=== PATIENT | male | born 1970 | race Caucasian/White ===

== ENCOUNTER 2023-02-28 06:41 | Emergency (ER) | payer SELFPAY ==
[2023-02-28 06:43] VITALS: BP 122/61; PULSE 80; RESP 14; TEMP 36.5; O2SAT 100; BMI 24.4
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
--- NOTE | 2023-02-28 07:36 | XR_ITS ---
The [place] [id number] Patient Name: ROBYN PEGUERO MRN: [id number] date: 1970 Sex: M Assigned Patient Location: ER Current Patient Location: ED.MAIN Accession/Order Number: [id number] Exam Date: 02/28/2023 07:30 Report Date: 02/28/2023 08:05 At the request of: LYNN CANTU Procedure: XR ribs LT min 3V w CXR1V EXAM: XR ribs LT min 3V w CXR1V HISTORY: rib COMPARISON: None. TECHNIQUE: Single view of the chest, 3 views of the left ribs. FINDINGS: Cardiomediastinal silhouette is within normal limits. Calcified granuloma projects over the left base; lungs and pleural spaces are otherwise clear. No appreciable acute displaced left-sided rib fracture. XR/XR ribs LT min 3V w CXR1V IMPRESSION: No appreciable acute displaced left-sided rib fracture. Electronically authenticated by: ALEX ROY Date: 02/28/2023 08:05
[2023-02-28] MEDS: BENZOCAINE 30 ML, lidocaine HCL 15 ML MM (07:45)
[2023-02-28] MEDS: BACITRACIN OINTMENT 28.4 GM TUBE 1 APPLIC TOPICAL (07:45)
[2023-02-28 07:56] VITALS: BP 116/74; PULSE 87; RESP 18; O2SAT 98
== END 2023-02-28 08:44 | disposition home or self-care (01) ==
PROVIDERS: Emergency Provider Emergency Medicine; Family Provider Family Medicine
DX: S20.212A Contusion of left front wall of thorax, initial encounter (principal); S29.9XXA Unspecified injury of thorax, initial encounter; V43.52XA Car driver injured in collision with other type car in traffic accident, initial encounter; S01.511A Laceration without foreign body of lip, initial encounter; F17.210 Nicotine dependence, cigarettes, uncomplicated
CPT/HCPCS: 71101; 94667; 99283; 99406

== ENCOUNTER 2023-10-16 08:37 | Outpatient (OUT) | payer OTHER, SELFPAY ==
--- NOTE | 2023-10-16 | XR_ITS ---
The [address] [address] Patient Name: ROBYN PEGUERO MRN: [id number] date: 1970 Sex: M Assigned Patient Location: Current Patient Location: Accession/Order Number: [id number] Exam Date: 10/16/2023 08:40 Report Date: 10/16/2023 13:49 At the request of: LONDON GIBSON Procedure: XR shoulder LT min 2V PROCEDURE: XR shoulder LT min 2V COMPARISON: None. HISTORY: LEFT SHOULDER PAIN FINDINGS: BONES:No fracture, acute abnormality, or significant arthropathy. SOFT TISSUES:Negative. No visible soft tissue swelling. EFFUSION:None visible. OTHER: Negative. XR/XR shoulder LT min 2V IMPRESSION: No acute radiographic abnormality Electronically authenticated by: MIRELLA BANKS Date: 10/16/2023 13:49
== END 2023-10-16 08:38 | disposition home or self-care (01) ==
LOC: EC 08:38
PROVIDERS: Family Provider Family Medicine; Visit Provider Orthopaedic Surgery
DX: M25.512 Pain in left shoulder (principal)
CPT/HCPCS: 73030

== ENCOUNTER 2023-10-24 14:29 | Outpatient (OUT) | payer OTHER, SELFPAY ==
--- NOTE | 2023-10-24 14:32 | XR_ITS ---
The [address] [address] Patient Name: ROBYN PEGUERO MRN: [id number] date: 1970 Sex: M Assigned Patient Location: RAD Current Patient Location: RAD Accession/Order Number: [id number] Exam Date: 10/24/2023 14:36 Report Date: 10/24/2023 14:57 At the request of: LONDON GIBSON Procedure: XR foreign body eye EXAMINATION: XR foreign body eye HISTORY: Foreign Body Eye Screen COMPARISON: No relevant comparison available. FINDINGS: ORBITS: Negative for a metallic foreign body. OTHER: Negative. XR/XR foreign body eye IMPRESSION: 1. No metallic foreign body within the orbits. Electronically authenticated by: LONDON COSTA Date: 10/24/2023 14:57
--- NOTE | 2023-10-24 14:33 | MR_ITS ---
[address] [address] Patient Name: ROBYN PEGUERO MRN: [id number] date: 1970 Sex: M Assigned Patient Location: [facility] Current Patient Location: Accession/Order Number: [id number] Exam Date: 10/24/2023 15:00 Report Date: 10/25/2023 08:43 At the request of: LONDON GIBSON Procedure: MR shoulder LT wo con EXAMINATION: MR shoulder LT wo con HISTORY: Injury Of Left Shoulder S49.92XA COMPARISON: No relevant comparison available. TECHNIQUE: A variety of imaging planes and parameters were utilized for visualization of suspected pathology. Imaging was performed without contrast. FINDINGS: ROTATOR CUFF REGION CUFF TENDONS: Mildly increased signal intensity in the supraspinatus and subscapularis tendons indicates tendon degeneration and/or tendinitis. No christine tear is seen. CUFF MUSCLES: Normal appearing muscles. DELTOID: Normal. No significant atrophy or tear. LONG BICEPS TENDON: Normal. No abnormal signal, attrition, or tear. LABRUM/BICEPS ANCHOR SUPERIOR: Normal. No visible labral tear or biceps anchor pathology. ANTERIOR/INFERIOR: Normal. No visible tear or attrition. POSTERIOR: Normal. No posterior labrum abnormality. CAPSULE Normal. No visible capsular laxity or thickening. AC JOINT REGION AC JOINT: Moderate osteoarthropathy with mild-moderate narrowing of the underlying coracoacromial arch. AC LIGAMENTS: Normal acromioclavicular ligament. CC LIGAMENTS: Normal coracoclavicular ligaments. ACROMION: Normal horizontal (Type I) configuration. SUBACROMIAL BURSA: Normal. No significant effusion. HYALINE CARTILAGE: Normal. No visible cartilage narrowing or focal defect. OTHER BONES: Normal proximal humerus, glenoid, and coracoid. OTHER OBSERVATIONS: Negative. No other significant findings or glenohumeral effusion. MR/MR shoulder LT wo con IMPRESSION: Mild rotator cuff tendinopathy with no partial or full-thickness tear Moderate acromioclavicular joint osteoarthropathy with no significant subacromial spurring Electronically authenticated by: MIRELLA BANKS Date: 10/25/2023 08:43
== END 2023-10-24 14:30 | disposition home or self-care (01) ==
LOC: RAD 14:29
PROVIDERS: Family Provider Family Medicine; Visit Provider Orthopaedic Surgery
DX: S49.92XA Unspecified injury of left shoulder and upper arm, initial encounter (principal); T15.90XA Foreign body on external eye, part unspecified, unspecified eye, initial encounter
CPT/HCPCS: 70030; 73221

== ENCOUNTER 2024-07-13 17:29 | Emergency (ER) | payer OTHER, SELFPAY ==
[2024-07-13 17:34] VITALS: BP 111/71; PULSE 81; TEMP 37.4; O2SAT 93; BMI 28.1
--- NOTE | 2024-07-13 18:05 | ED_ITS ---
HPI HPI - General Adult General Chief complaint: Upper Respiratory Infection Stated complaint: FLU LIKE SYMPTOMS Time Seen by Provider: 07/13/24 17:37 Source: patient Mode of arrival: walk-in Limitations: no limitations History of Present Illness HPI narrative: The patient is a 53-year-old male who is living in the same household with his kids who have influenza , the patient is coming to the ER with his kids as well and apparently they all have the same symptoms, but he noted that he has been having some thrush in his mouth since yesterday as it is whitish but there is no pain He does take his COPD inhalers and he have no wheezing at the moment but he does have some increase in the cough He also have generalized body ache Related Data Previous Rx's ?Medication ?Instructions ?Recorded hydrocodone 5 mg-acetaminophen 325 1 tab PO Q4H PRN pain #10 tabs 02/28/23 mg tablet mupirocin 2 % topical ointment 1 applic topical TID 14 days #15 02/28/23 grams doxycycline hyclate 100 mg capsule 100 mg PO BID 7 days #14 caps 07/13/24 nystatin 100,000 unit/mL oral 400,000 unit (4 mL) buccal QID 7 07/13/24 suspension days #112 mL ondansetron 4 mg disintegrating 4 mg PO TID PRN nausea and 07/13/24 tablet vomiting 48 hours #10 tabs Allergies Allergy/AdvReac Type Severity Reaction Status Date / Time No Known Drug Allergies Allergy Verified 07/13/24 17:37 Opioid HPI Opioid Management Most Recent Opioid Data: No Data to Display Review of Systems ROS Status of ROS 10 or more systems reviewed and unremark able except as noted in history and below Exam Narrative Exam Narrative: Nurses notes and vital signs reviewed and patient is not hypoxic. General: Well-appearing and in no apparent distress. Skin: Warm, dry, no pallor noted. No rash. Head: Normocephalic, atraumatic. Neck: Supple, non-tender. Eye: Pupils are equal, round and EOMI. No scleral icterus. Ears, Nose, Mouth, and Throat: TM are clear, no nasal mucosal hypertrophy. The patient have a whitish thrush on the tongue and nothing in the oropharynx ,no posterior oropharynx erythema, uvula is mid-line Cardiovascular: Regular Rate and Rhythm without murmur, gallop or rub. Respiratory: No accessory muscle use or respiratory distress. Lungs are clear to auscultation, no wheezing, rales or rhonchi Chest Wall: no tenderness Back: No midline thoracic or lumbar vertebral tenderness. No CVA tenderness Musculoskeletal: normal ROM, no calf or popliteal tenderness, no lower extremity edema/swelling GI: Abdomen is soft, non-distended. Normal bowel sounds. No masses appreciated. No tenderness to palpation. No rebound, guarding, or rigidity noted. Neurological: A&O x4. No cranial nerve dysfunction observed. No truncal ataxia. Moves all extremities. Sensation intact. Psychiatric: Cooperative and interactive. Normal mood and affect. Constitutional Vital Signs, click to edit/add: Last Vital Signs Temp 99.3 F 07/13/24 17:34 Pulse 81 07/13/24 17:34 Resp 16 07/13/24 17:34 BP 111/71 07/13/24 17:34 Pulse Ox 93 L 07/13/24 17:34 O2 Del Method Room Air 07/13/24 17:34 Course Vital Signs Vital signs: Vital Signs Temperature 99.3 F 07/13/24 17:34 Pulse Rate 81 07/13/24 17:34 Respiratory Rate 16 07/13/24 17:34 Blood Pressure 111/71 07/13/24 17:34 Pulse Oximetry 93 L 07/13/24 17:34 Oxygen Delivery Method Room Air 07/13/24 17:34 Temperature 99.3 F 07/13/24 17:34 Pulse Rate 81 07/13/24 17:34 Respiratory Rate 16 07/13/24 17:34 Blood Pressure 111/71 07/13/24 17:34 Pulse Oximetry 93 L 07/13/24 17:34 Oxygen Delivery Method Room Air 07/13/24 17:34 Medical Decision Making [facility] Narrative Medical decision making narrative: The patient to mostly have influenza A as well with his history of increasing cough with his history of COPD the patient will be covered with doxycycline for COPD exacerbation Patient was provided with Zofran for the nausea and vomiting he discharged home with supportive care after he was tolerating p.o. Provided with nystatin mouthwash The patient also provided with the Zofran for nausea and he was instructed about hydration he is to come back to the ER in case of new symptoms or concerns The patient is to follow up with primary care physician in next 2-3 days or to return to the emergency department should any of the signs or symptoms worsen or new symptoms develop. The patient agrees with the following Diagnosis and Treatment plan and the patient will be discharged home. Discharge Plan Discharge Chief Complaint: Upper Respiratory Infection Clinical Impression: Oral thrush, Flu, COPD exacerbation Patient Disposition: Home, Self-Care Time of Disposition Decision: 18:00 Prescriptions / Home Meds: New nystatin 100,000 unit/mL suspension 400,000 unit buccal QID 7 Days Qty: 112 0RF Rx Instructions: administer 1/2 of dose in each side of the mouth ,swish with it QID ondansetron 4 mg tablet,disintegrating 4 mg PO TID PRN (Reason: nausea and vomiting) 2 Days Qty: 10 0RF doxycycline hyclate 100 mg capsule 100 mg PO BID 7 Days Qty: 14 0RF No Action hydrocodone-acetaminophen 5-325 mg tablet 1 tab PO Q4H PRN (Reason: pain) Qty: 10 0RF mupirocin 2 % ointment 1 applic topical TID 14 Days Qty: 15 0RF Print Language: Pashto Instructions: Oral Candidiasis (ED), Influenza (ED) Referrals: Physician,Non-Staff, MD [Primary Care Provider] - 1 week
[2024-07-13] MEDS: ONDANSETRON 4 MG RAPDIS TABLET SL (18:10)
--- OUTSIDE RECORDS SUMMARY | 2024-07-13 18:23 | XMS_ITS | CCD ---
Author Organization [facility] Care Team Providers Care Relay Dispatcher Name Role Phone Nancy Messina Unavailable TeenaLesia moya Unavailable Services, [facility] Primary Care Provider PAYAL JOHNSON Referring Unavailable SHERYL, ABERDEEN Primary Care Unavailable TALEB, MARK ANTHONY Attending Unavailable LES SAUCEDO Referring Unavailable SERVICES, [facility] Care Unava ilable VERITO PETERS Attending Unavailable SERVICES, [facility] Primary Care Unava ilable TALEB, MARK ANTHONY Attending Unavailable SERVICES, [facility] Care Unava ilable TALEB, MARK ANTHONY Attending Unavailable TALEB, MARLEED Referring Unavailable SERVICES, [facility] Care Unava ilable SHAMMO, NILA Referring Unavailable SERVICES, [facility] Care Unava ilable TALEB, MOHTERRYD Attending Unavailable TALEB, MOHAMMAD Referring Unavailable SERVICES, [facility] Care Unava ilable SHAMMO, NILA Referring Unavailable SERVICES, [facility] Care Unava ilable TALEB, MOHAMMAD Referring Unavailable SERVICES, [facility] Primary Care Unava ilable SHAMMO, NILA Referring Unavailable SERVICES, [facility] Primary Care Unava ilable SERVICES, [facility] Care Unava ilable BINTA BATEMAN Admitting Unavailable BINTA BATEMAN Attending Unavailable BINTA BATEMAN Referring Unavailable SERVICES, [facility] Primary Care Unava ilable BINTA BATEMAN Attending Unavailable BINTA BATEMAN Referring Unavailable SERVICES, [facility] Unava ilable LES SAUCEDO Referring Unavailable SERVICES, [facility] Unava ilable PAYAL JOHNSON Referring Unavailable SERVICES, [facility] Unava ilable PAYAL JOHNSON Referring Unavailable SERVICES, [facility] Unava ilable TALSUZY, MARK ANTHONY Attending Unavailable TALEB, MARK ANTHONY Referring Unavailable SERVICES, [facility] MADI Page Attending Unavailable SERVICES, [facility] Mateo Saucedo FENCE MACHINE OPERATOR - ATTENDING UROLOGIST, [place] Primary Care Provider Allergies Allergy Classification Reported Allergen(s) Allergy Type Date of Onset Reaction(s) Facility (1 source) Penicillins Propensity to adverse reactions to drug 01-10-2024 [facility] Medications Current Medications Medication Drug Class(es) Dates Sig (Normalized) Sig (Original) [id number] 200 actuat albuterol 0.09 mg/actuat metered dose inhaler (4 sources) beta2-Adrenergic Agonist Start: 10-09-2023 take 2 puff(s) by inhalation every six hours as needed for wheezing albuterol (PROVENTIL HFA;VENTOLIN HFA) 90 mcg/actuation inhaler Indications: Simple chronic bronchitis ([facility]) Inhale 2 puffs every 6 (six) hours as needed for wheezing. 18 g 11 10/09/2023 Active Start: 10-09-2023 take 2 puff(s) by inhalation every six hours as needed albuterol sulfate HFA (PROVENTIL;VENTOLIN;PROAIR) 108 (90 Base) MCG/ACT inhaler Inhale 2 puffs into the lungs every 6 hours as needed 0 10/09/2023 Active Brompheniramine / Pseudoephedrine (1 source) alpha-Adrenergic Agonist Start: 03-14-2021 take 5 mL by mouth every six hours as needed Bromfed DM 30-2-10 MG/5ML 5 ml as needed Orally every 6 hrs Mar, Active fluticasone propionate 0.05 mg/actuat metered dose nasal spray (1 source) Corticosteroid Start: 03-14-2021 take 1 spray(s) nasal route once daily Fluticasone Propionate 50 MCG/ACT 1 spray in each nostril Nasally Once a day for 30 day(s) Mar, Active ibuprofen 800 mg oral tablet (7 sources) Nonsteroidal Anti-inflammatory Drug Start: 06-15-2023 take 1 tablet by mouth every eight hours as needed for pain ibuprofen (MOTRIN) 800 mg tablet Take 1 tablet (800 mg total) by mouth every 8 (eight) hours as needed for pain. 30 tablet 06/15/2023 Active 200 actuat levalbuterol 0.045 mg/actuat metered dose inhaler (4 sources) beta2-Adrenergic Agonist Start: 11-02-2023 take 2 puff(s) by inhalation four times daily as needed for wheezing levalbuterol (XOPENEX HFA) 45 mcg/actuation inhaler Indications: Asthma, unspecified asthma severity, unspecified whether complicated, unspecified whether persistent Inhale 2 puffs 4 (four) times a day as needed for wheezing. 15 g 11 11/02/2023 Active Start: 11-02-2023 take 2 puff(s) by in halation four times daily as needed levalbuterol (XOPENEX HFA) 45 MCG/ACT inhaler Inhale 2 puffs into the lungs 4 times daily as needed 0 11/02/2023 Active medical marijuana (1 source) medical marijuan a Take by mouth as needed. 0 Active 24 hr nicotine 0.583 mg/hr transdermal system (4 sources) Cholinergic Nicotinic Agonist Start: apply 1 dose transdermal route once daily NICODERM CQ 14 mg/[address] 1 patch on the skin daily. 10/04/2023 Active Start: 10-04-2023 apply 1 dose transde rmal route every twenty-four hours nicotine (NICODERM CQ) 14 MG/24HR Place 1 patch onto the skin every 24 hours 0 10/04/2023 Active peg 3350-sod sulf,nmth-kwr-gko 178.7-7.3-0.5 gram recon soln (1 source) Start: 06-23-2023 End: 06-24-2023 peg 3350-sod sulf,lbtv-fdh-sze 178.7-7.3-0.5 gram recon soln Indications: Positive colorectal cancer screening using Cologuard test Take 1 kit by mouth once daily for 1 dose. Please see instructional sheet given by physicians office. 1 each 0 06/23/2023 06/24/2023 Active predniSONE 20 mg oral tablet (1 source) Start: 08-29-2022 take 1 tablet by mouth every twelve hours predniSONE 20 MG 1 tablet Orally 2 times a day for 5 day(s) Aug, Active 10 actuat tiotropium 0.0025 mg/actuat inhalation spray (4 sources) Anticholinergic Start: 10-09-2023 tiotropium bromide (SPIRIVA RESPIMAT) 2.5 mcg/actuation mist Indications: Simple chronic bronchitis (CMS-HCC) Inhale 2 Inhalations in the morning. 4 g 11 10/09/2023 Active Start: 10-09-2023 take 2 puff(s) by in halation once daily tiotropium (SPIRIVA RESPIMAT) 2.5 MCG/ACT AERS inhaler Inhale 2 puffs into the lungs daily 0 10/09/2023 Active Completed/Discontinued Medications Medication Drug Class(es) Dates Sig (Normalized) Sig (Original) cyclobenzaprine hydrochloride 10 mg oral tablet (2 sources) Muscle Relaxant Start: 02-16-2021 End: 07-18-2023 take 1 tablet by mouth twice daily as needed for muscle spasms cyclobenzaprine (FLEXERIL) 10 mg tablet Take 1 tablet (10 mg total) by mouth 2 (two) times a day as needed for muscle spasms. Do not take when driving or lifting heavy machinery. 10 tablet 0 02/16/2021 07/18/2023 Discontinued penicillin v potassium 25 mg/ml oral solution (2 sources) End: 07-18-2023 penicillin potassium 125 mg/5 mL solution Take by mouth 4 (four) times a day. 0 07/18/2023 Discontinued varenicline 0.5 mg oral tablet (2 sources) Partial Cholinergic Nicotinic Agonist Start: 06-06-2023 End: 07-18-2023 take 2 tablets by mouth in the morning varenicline (CHANTIX) 0.5 mg tablet Take 2 tablets (1 mg total) by mouth in the morning. 0 06/06/2023 07/18/2023 Discontinued Problems Active Problems Problem Classification Problem Date Documented Da te Episodic/Chronic Chronic obstructive pulmonary disease and bronchiectasis (2 sources) Chronic obstructive pulmonary disease, unspecified; Translations: [Simple chronic bronchitis] Onset: 10-09-2023 Chronic Noninfectious gastroenteritis (3 sources) Noninfective gastroenteritis and colitis, unspecified; Translations: [Postprandial diarrhea] Onset: 01-10-2024 01-10-2024 Episodic Other gastrointestinal disorders (1 source) Stool DNA-based colorectal cancer screening positive; Translations: [Other fecal abnormalities] 06-22-2023 Episodic Other gastrointestinal disorders (2 sources) Diarrhea; Translations: [Diarrhea, unspecified] 04-22-2024 Episodic Substance-related disorders (2 sources) Nicotine dependence, cigarettes, uncomplicated; Translations: [Nicotine dependence, cigarettes, uncomplicated] Onset: 10-09-2023 Chronic Unclassified (1 source) New Patient Onset: 10-09-2023 Unclassified (2 sources) POSITIVE COLOGUARD Onset: 06-23-2023 Past or Other Problems Problem Classification Problem Date Documented Da te Episodic/Chronic Gastritis and duodenitis (1 source) Acute gastritis without bleeding; Translations: [Acute gastritis without bleeding] Onset: 07-24-2023 Episodic Immunizations and screening for infectious disease (1 source) Contact with and (suspected) exposure to other viral communicable diseases; Translations: [Contact with and (suspected) exposure to other viral communicable diseases Z20.828] Onset: 03-14-2021 Resolved: 03-14-2021 Episodic Malaise and fatigue (1 source) Weakness; Translations: [Weakness] Onset: 08-16-2023 Episodic Other and unspecified benign neoplasm (1 source) Polyp of colon; Translations: [Polyp of colon] Onset: 07-24-2023 Episodic Other connective tissue disease (1 source) Other enthesopathies, not elsewhere classified; Translations: [Other enthesopathies, not elsewhere classified] Onset: 08-16-2023 Episodic Other gastrointestinal disorders (1 source) Other fecal abnormalities; Translations: [Other fecal abnormalities] Onset: 06-23-2023 Episodic Other gastrointestinal disorders (1 source) Diarrhea, unspecified; Translations: [Diarrhea, unspecified] Onset: 01-15-2024 Episodic Other lower respiratory disease (2 sources) Shortness of breath; Translations: [Shortness of breath] Onset: 08-11-2023 Episodic Other lower respiratory disease (1 source) Shortness of breath Onset: 10-09-2023 Episodic Other non-traumatic joint disorders (1 source) Pain in left shoulder; Translations: [Pain in left shoulder] Onset: 08-16-2023 Episodic Unclassified (1 source) Contact with and (suspected) exposure to covid-19 Z20.822 Viral infection (1 source) COVID-19 Results Test Name Value Interpretation Reference Range Facility CT LOW DOSE LUNG SCREENINGon 06-26-2024 CT LOW DOSE LUNG SCREENING CT LOW DOSE LUNG SCREENING CLINICAL INFORMATION: Screening visit: Personal history of tobacco use/personal history of nicotine dependence. Lung cancer screening. The patient is a current smoker. The patient has a 1 pack year history of smoking. COMPARISON: 06/06/2023 and 09/14/2022 TECHNIQUE: Low dose CT chest performed without contrast with coronal and sagittal and maximum intensity projection reconstructed images. Maximum intensity projection images generated to increase the sensitivity of pulmonary nodule detection. All CT scans at this facility use dose modulation, iterative reconstruction, and/or weight based dosing when appropriate to reduce radiation dose to as low as reasonably achievable. Automated exposure control was utilized. Computer aided detection for pulmonary nodules?was performed utilizing 5th Finger software.? FINDINGS: Diagnostic quality: Satisfactory Lung nodules: Stable 5 mm nodule in the right lower lobe (series 608 image 172). Calcified granulomas in the left lung and left hilum. Unchanged 4 mm right middle lobe nodule (series 608 image 169). Lungs and pleural spaces: Centrilobular emphysematous change. No pleural thickening or pleural effusion. Mediastinum: There is no mass or adenopathy. Ascending thoracic aortic diameter: 3.3 cm Main pulmonary artery diameter: 2.8 cm. Heart size: Normal Coronary calcification: None Pericardial effusion: None Other findings: Degenerative changes in the thoracic spine. IMPRESSION: Changes of COPD and evidence of prior granulomatous infection. No suspicious lung nodules. Lung Rads Category: 2- Benign appearance or behavior Recommendation: CT Low Dose Lung Screening 1 year Finalized by Bronson Durand MD on 06/26/2024 9:24 AM 2 LDCT 1 Yr Normal [facility] C DIFFICILE BY PCRon 024 C. difficile toxin genes ANDRZEJ+probe Ql (Stl) TOXIGENIC C DIFF Negative (qualifier value) 027 NAP1 Negative (qualifier value) Normal PRNEG [facility] Comment on above: Performed By: #### 5 4067-4 #### [facility] ([id number]) [address] [place] [address], [address] [place] [address] #### 78526-1 #### [facility] ([id number]) [address] [place] [address], [place] [address] [facility] ([id number]) [address] [place] [address], [address] [place] [address] Elastase.pancreatic (Stl) [M ass/Mass]on 04-08-2024 Pancreatic Elastase, F 123 mcg/g Low >200 (Normal) [facility] Comment on above: Result Comment: NOTE Interpretation: Borderline (100-200 mcg/g); Consistent with slight to moderate pancreatic insufficiency Test Performed by: [facility] [address] [place] [address] Ore Feeder: Erich Rick Ph.D.; CLIA# [id number] Performed By: #### 2 5907-7 #### [facility] ([id number]) [address] [place] [address], [place] [address] GI PANELon 04-08-2024 Gastrointestinal pathogens DNA and RNA panel ANDRZEJ+non-probe (Stl) SPECIMEN SOURCE STOOL CAMPYLOBACTER Not detected (qualifier value) PLESIOMONAS Not detected (qualifier value) SALMONELLA Not detected (qualifier value) VIBRIO Not detected (qualifier value) VIBRIO CHOLERAE Not detected (qualifier value) Y. ENTEROCOLITICA Not detected (qualifier value) AGGREGATIVE E COLI Not detected (qualifier value) PATHOGENIC E COLI Not detected (qualifier value) TOXIGENIC E COLI Not detected (qualifier value) SHIGA TOXIN E COLI Not detected (qualifier value) SHIGELLA-E COLI Not detected (qualifier value) CRYPTOSPORIDIUM Not detected (qualifier value) CYCLOSPORA Not detected (qualifier value) E HISTOLYTICA Not detected (qualifier value) GIARDIA LAMBLIA Not detected (qualifier value) ADENOVIRUS Not detected (qualifier value) ASTROVIRUS Not detected (qualifier value) NOROVIRUS Detected (qualifier value) Detects the following: Norovirus Genogroups I, II The bisque tile burner has reported an increase in false positive Norovirus results. If the positive test is inconsistent with clinical presentation, a secondary method should be used to confirm the results. ROTAVIRUS A Not detected (qualifier value) SAPOVIRUS Not detected (qualifier value) Normal NDET [facility] Comment on above: Performed By: #### 5 4067-4 #### [facility] ([id number]) [address] [facility], [address] [place] [address] #### 41022-8 #### [facility] ([id number]) [address] [place] [address], [place] [address] [facility] ([id number]) [address], [address] [place] [address] CBC AND AUTO DIFFon 01-15-20 24 ABSOLUTE BASOPHIL 0.0 X10E9/L Normal 0.0-0.2 [facility] Comment on above: Performed By: #### C BCA, CMP #### [facility] ([id number]) [address], [address] [place] [address] ABSOLUTE NEUTROPHIL 6.2 X10E9/L Normal 1.5-6.6 [facility] Comment on above: Performed By: #### C BCA, CMP #### [facility] ([id number]) [address], [address] [place] [address] Basophils/100 WBC (Bld) 0.6 % Normal [facility] Comment on above: Performed By: #### C BCA, CMP #### [facility] ([id number]) [address], [facility] [address] [place] [address] Eosinophils (Bld) [#/Vol] 0.2 10*3/uL Normal 0.0-0.4 [facility] Comment on above: Performed By: #### C BCA, CMP #### [facility] ([id number]) [address], [address] [address] Eosinophils/100 WBC (Bld) 2.6 % Normal [facility] Comment on above: Performed By: #### C BCA, CMP #### [facility] ([id number]) [address], [address] [place] [address] Erythrocyte distribution width (RBC) [Ratio] 13.7 % Normal 11.5-15.0 [facility] Comment on above: Performed By: #### C BCA, CMP #### [facility] ([id number]) [address], [address] [place] [address] Hematocrit (Bld) [Volume fraction] 44.0 % Normal 39-49 [facility] Comment on above: Performed By: #### C BCA, CMP #### [facility] ([id number]) [address] [address] [place] [address] Hemoglobin (Bld) [Mass/Vol] 15.0 g/dL Normal 13.0-17.0 [facility] Comment on above: Performed By: #### C MADHAVI, CMP #### [facility] ([id number]) [address] [address] [place] [address] Lymphocytes (Bld) [#/Vol] 1.4 10*3/uL Normal 1.0-3.5 [facility] Comment on above: Performed By: #### C MADHAVI, CMP #### [facility] ([id number]) [address], [address] [place] [address] Lymphocytes/100 WBC (Bld) 16.3 % Normal [facility] Comment on above: Performed By: #### C BCA, CMP #### [facility] ([id number]) [address], [address] [place] [address] MCH (RBC) [Entitic mass] 30.6 pg Normal 27-34 [facility] Comment on above: Performed By: #### C BCA, CMP #### [facility] ([id number]) [address] [address] [place] [address] MCHC (RBC) [Mass/Vol] 34.1 g/dL Normal 32-36 [facility] Comment on above: Performed By: #### C BCA, CMP #### [facility] ([id number]) [address], [address] [place] [address] MCV (RBC) [Entitic vol] 90 fL Normal 80-100 [facility] Comment on above: Performed By: #### C BCA, CMP #### [facility] ([id number]) [address], [address] [place] [address] Monocytes (Bld) [#/Vol] 0.8 10*3/uL Normal 0-0.9 [facility] Comment on above: Performed By: #### C BCA, CMP #### [facility] ([id number]) [address], [address] [place] [address] Monocytes/100 WBC (Bld) 8.9 % Normal [facility] Comment on above: Performed By: #### C BCA, CMP #### [facility] ([id number]) [address], [address] [place] [address] Neutrophils/100 WBC (Bld) 71.6 % Normal [facility] Comment on above: Performed By: #### C BCA, CMP #### [facility] ([id number]) [address], [address] [place] [address] Platelet mean volume (Bld) [Entitic vol] 9.5 fL Normal 7-12 [facility] Comment on above: Performed By: #### C BCA, CMP #### [facility] ([id number]) [address], [address] [place] [address] Platelets (Bld) [#/Vol] 226 10*3/uL Normal 150-450 [facility] Comment on above: Performed By: #### C BCA, CMP #### [facility] ([id number]) [address], [address] [place] [address] RBC COUNT 4.90 X10E12/L Normal 4.10-5.70 [facility] Comment on above: Performed By: #### C BCA, CMP #### [facility] ([id number]) [address], [address] [place] [address] WBC (Bld) [#/Vol] 8.6 10*3/uL Normal 4.0-11.0 [facility] Comment on above: Performed By: #### C BCA, CMP #### [facility] ([id number]) [address], [address] [place] [address] COMPREHENSIVE METABOLIC PANE Leandro 01-15-2024 Albumin [Mass/Vol] 4.1 g/dL Normal 3.2-5.3 [facility] Comment on above: Performed By: #### C BCA, CMP #### [facility] ([id number]) [address], [address] [place] [address] ALP [Catalytic activity/Vol] 72 U/L Normal 39-130 [facility] Comment on above: Performed By: #### C BCA, CMP #### [facility] ([id number]) [address], [address] [place] [address] ALT [Catalytic activity/Vol] 11 U/L Normal 0-40 [facility] Comment on above: Performed By: #### C BCA, CMP #### [facility] ([id number]) [address], [address] [place] [address] Anion gap [Moles/Vol] 7 mmol/L Normal 5-15 [facility] Comment on above: Performed By: #### C BCA, CMP #### [facility] ([id number]) [address], [address] [place] [address] AST [Catalytic activity/Vol] 17 U/L Normal 0-41 [facility] Comment on above: Performed By: #### C BCA, CMP #### [facility] ([id number]) [address], [address] [place] [address] Bilirubin [Mass/Vol] 0.4 mg/dL Normal 0.3-1.2 [facility] Comment on above: Performed By: #### C BCA, CMP #### [facility] ([id number]) [address], [address] [place] [address] Calcium [Mass/Vol] 9.2 mg/dL Normal 8.5-10.5 [facility] Comment on above: Performed By: #### C BCA, CMP #### [facility] ([id number]) [address], [address] [place] [address] Chloride [Moles/Vol] 105 mmol/L Normal 98-109 [facility] Comment on above: Performed By: #### C BCA, CMP #### [facility] ([id number]) [address], [address] [place] [address] CO2 [Moles/Vol] 27 mmol/L Normal 22-32 [facility] Comment on above: Performed By: #### C BCA, CMP #### [facility] ([id number]) [address], [address] [place] [address] Creatinine [Mass/Vol] 0.92 mg/dL Normal 0.60-1.30 [facility] Comment on above: Result Comment: METH OD TRACEABLE TO IDMS STANDARD Performed By: #### C BCA, CMP #### [facility] ([id number]) [address], [address] [place] [address] eGFR (CKD-EPI) NON-RACE DEPENDENT >90 Normal >59 [facility] Comment on above: Result Comment: Reported eGFR is based on the CKD-EPI 2020 equation that does not use a race coefficient. Performed By: #### C BCA, CMP #### [facility] ([id number]) [address], [address] [place] [address] Glucose [Mass/Vol] 87 mg/dL Normal 65-99 [facility] Comment on above: Performed By: #### C BCA, CMP #### [facility] ([id number]) [address], [address] [place] [address] Potassium [Moles/Vol] 4.1 mmol/L Normal 3.5-5.0 [facility] Comment on above: Performed By: #### C BCA, CMP #### [facility] ([id number]) [address], [address] [place] [address] Protein [Mass/Vol] 6.8 g/dL Normal 6.0-8.0 [facility] Comment on above: Performed By: #### C BCA, CMP #### [facility] ([id number]) [address], [address] [place] [address] Sodium [Moles/Vol] 139 mmol/L Normal 134-146 [facility] Comment on above: Performed By: #### C BCA, CMP #### [facility] ([id number]) [address], [address] [place] [address] Urea nitrogen [Mass/Vol] 10 mg/dL Normal 5-23 [facility] Comment on above: Performed By: #### C BCA, CMP #### [facility] ([id number]) [address], [address] [place] [address] Celiac Disease Panelon 01-11 Gliadin Deam Pep IgA 1.5 U/mL Normal <7.0 [facility] Comment on above: Result Comment: CELIAC INTERPRETATION <7.0 Negative 7.0-10.0 Equivocal >10.0 Positive units: U/mL Performed By: #### C ELP #### [facility] [address] [place], [place] [id number] Ore Feeder: Cody Garcia MD Gliadin Deam Pep IgG <0.4 Normal <7.0 [facility] Comment on above: Result Comment: CELIAC INTERPRETATION <7.0 Negative 7.0-10.0 Equivocal >10.0 Positive units: U/mL Performed By: #### C ELP #### [facility] [address], [place] [id number] Ore Feeder: Cody Garcia MD Tiss Transglutam IgA 0.4 U/mL Normal <7.0 [facility] Comment on above: Result Comment: CELIAC INTERPRETATION <7.0 Negative 7.0-10.0 Equivocal >10.0 Positive units: U/mL Performed By: #### C ELP #### [facility] [address], [place] [id number] Ore Feeder: Cody Garcia MD Celiac Disease Panelon 01-09 IgA [Mass/Vol] 212 mg/dL Normal 70-400 [facility] Comment on above: Performed By: #### C ELP #### [facility] [address], [place] [id number] Ore Feeder: Cody Garcia MD Alpha 1 antitrypsin Nephelom etry [Mass/Vol]on 10-09-2023 A1A Targeted Lia See Below Normal [facility] Comment on above: Result Comment: NOTE TEST RESULT FLAG UNIT REF.RANGE ------ Alpha-1 Antitrypsin Genotyping Interpretation See below Alpha-1 Antitrypsin Genotyping Laboratory Accession Number: [id number] Result: No Variant Detected in SERPINA1 (PI*MM) Interpretation: DNA testing indicates that this patient does not have the S, Z, F, or I alleles of SERPINA1, the alpha-1 antitrypsin gene. Guidance: Genetic consultation and counseling of at risk family members regarding this laboratory testing may be considered as clinically appropriate. Patients with no variants of SERPINA1 typically have serum alpha-1 antitrypsin levels between 102-254 mg/dL. If this patient has a serum alpha-1 antitrypsin level that is not consistent with this genotype and alpha-1 antitrypsin deficiency caused by a rare variant is clinically suspected, consider performing SERPINA1 gene sequencing. Methodology: Isolated genomic DNA from the patient's blood specimen is evaluated for four variants in the alpha-1 antitrypsin gene SERPINA1 (RefSeq [id number]; GRCh38/hg38) by multiplex polymerase chain reaction (PCR) followed by melting curve analysis. These included the two most common pathogenic variants: S (c.863A>T, p.Jhi017Bov, g.[id number]), Z (c.1096G>A, p.Eap350Hiu, g.[id number]), and the rarer variants: F (c.739C>T, p.Xrz197Trl, g.59159597), I (c.187C>T, p.Uqx34Hfl, g.06460693). Limitations: This Laboratory Developed Test (LDT) is designed to detect the S, Z, F and I alleles. The S and Z alleles comprise 95% of non-wild type genotypes. Uncommon variants or Single Nucleotide Polymorphisms may affect binding of LightMix or LightSNiP probes and may result in a false negative, false positive, or indeterminate result. Absence of the S, Z, F, and I alleles is interpreted as PI*MM genotype. However, there are over 100 known rare variants of SERPINA1 that are not detected by this LDT. Therefore, correlation of the genotype with the patient's serum alpha-1 antitrypsin level and clinical manifestations is strongly recommended. Frequency of S, Z, F and I Alleles in the general population: S: Heterozygous 2%; Homozygous 0.04% Z: Heterozygous 1%; Homozygous 0.01% F: Heterozygous 0.3%; Homozygous 0.001% I: Heterozygous 0.1%; Homozygous unknown Allele frequency information was gathered from the [employer] Agg[employer] Consortium (ExAC) and includes data from , , , and populations (supporting data in references). Disclaimer: This test was developed and its performance characteristics determined by [facility]ology [facility] Laboratory Medicine [place] ([facility]). It has not been cleared or approved by the FDA. -PLTN is regulated under CLIA as certified to perform high- complexity testing. This test is used for clinical purposes. It should not be regarded as investigational or for research. Testing and interpretation performed at [facility], [address] [place] [address]. CLIA Number: [id number] References: 1) Travon SHIELDS Tatianna G, Caroline ML, Jason M, Agustin CE, Liang K, Lisa DK, Ofelia SL, Darnell GARZA, [place] RAMIREZ, Fernanda C, Enrique J. The Diagnosis and Management of Alpha-1 Antritrypsin Deficiency in the Adult. Chronic Obstr Pulm Dis. 2016 Nov 08;3:668-682. 2) Samuel JA, Lianet ON, Nathalia ER, Zhen DG. a1-Antitrypsin phenotypes and associated serum protein concentrations in a large clinical population. Chest.2013 Sep;143(4):1000-8. 3) Jethro A, Dc NA, Devon CR, Kevin FJ, Sandeep SJ, Rosanne AF. Molecular characterisation of three braqp-6-nbjfvvrbpqw deficiency variants: proteinase inhibitor (Pi) nullcardiff (Vun299----Qaf); PiMmalton (Dbw96----vmovdsys) and PiI (Eyt31----Ppu). Hum Maureen. 1989 May;84(1):55-8. 4) Tam WALTON and Travon SHIELDS. Clinical practice. Alpha1-antitrypsin deficiency. N Engl J Med. 2008Nov 27;360(52)2888-94. 5) Candelario NJ, Mychal F, Inder SHIELDS. The significance of the F variant of yjrng-0-qbzrwjndjlo and unique case report of a PiFF homozygote. BMC Pulm Med. 2013Jan 09;14:132. 6) [place] RAMIREZ, Mike FRANKLIN, and Michael Cabezas. Alpha-1 Antitrypsin Deficiency. 2005Mar 31 [Updated 2017 June 23]. In: Emily RA, Colt MP, Taqueria TO, et al., editors. GeneReviews [Internet]. [place]): [employer], [place]; 8438-8466. Available from: http://www.ncbi.nlm.nih.gov/books/NRR8751/ As reviewed by Henry Morgan, PhD, [facility] Test Performed by: [employer] [place] [address] Coil Tester: Ilan SHAW #[id number] Performed By: #### 6 771-0 #### [facility] ([id number]) [address] [place] [address] #### 6771-0 #### [facility] ([id number]) [address] [place] [address] ALPHA 1 ANTITRYPSIN 165 mg/dL Normal 83-199 [facility] Comment on above: Performed By: #### 6 771-0 #### [facility] ([id number]) [address] [place] [address] #### 6771-0 #### [facility] ([id number]) [address] [place] [address] XR CHEST 2 VWSon 08-12-2023 XR CHEST 2 VWS XR CHEST 2 VWS Chest 2 views History: SOB (shortness of breath) Comparison: None Findings: Chest 2 views. Small left pleural effusion with left pleural thickening or scarring. Calcified left lung granuloma. Degenerative changes of the thoracic spine. Impression: No evident acute cardiopulmonary process. Finalized by Binta Herrera MD on 08/12/2023 9:20 AM Normal [facility] H PYLORI SCREENon 07-24-2023 H. pylori Org specific cx Ql (Shukri fld) Negative Normal NEG [facility] Comment on above: Performed By: #### 4 4015-6 #### [facility] ([id number]) [address] [place] [address] Surgical Pathologyon 024 Surgical Pathology Normal [facility] Comment on above: Result Comment: [facility] [address] [place] [address] Surgical Pathology Consultation Patient Name:ROBYN MCCULLOUGH:1970 (Age: 52)Gender:MTaken:4Reported:07/27/2023hysician(s):Binta Bateman D.O. ([phone])Copy To: Rec. #:[id number]: #[id number] Final Pathologic Diagnosis 1. Antrum biopsy: Mild chronic gastritis. Negative for helicobacter organisms on routine H&E examination. Negative for atypia or malignancy. 2. Sigmoid colon polyp: Hyperplastic polyp. 3. Rectal sigmoid junction x5: Hyperplastic polyps. Report Electronically Signed Out st07/27/2023Gayle Bruner MD Interpretation performed at [facility], [address] [place], [address], License number: [id number]. Clinical History Positive Cologuard. Gross Description 1. Received in formalin labeled MARIELENA, antrum BX are two light chapman soft tissue bits, 0.2 cm each. The specimen is filtered and entirely submitted in a single cassette. (1, ns, [id number],m8) DM. 2. Received in formalin labeled MARIELENA, sigmoid polyp is a light chapman soft tissue bit, 0.2 cm. The specimen is filtered and entirely submitted in a single cassette. (1, ns, [id number],m8) DM. 3. Received in formalin labeled MARIELENA, rectal sigmoid junction X5 are six light chapman soft tissue bits, 0.1-0.5 cm. The specimen is filtered and entirely submitted in a single cassette. (1, ns, [id number],m8) DM. dm/07/25/2023EAK Specimen(s) Received 1: Antrum biopsy 2: Sigmoid colon polyp 3: Rectal sigmoid junction x5 Fee Codes(s): 1; 42202 2; 24731 3; 36122 COVID Quick Testingon 2022 Result Positive Face++ Other COVID Quick Testingon 2020 Result Negative Face++ Other Vital Signs Date Time Vital Sign Value Performing Clinician Facility 07-18-2023 10:03-0500 Body height 175.3 cm Pmh 1 [facility] 07-18-2023 10:03-0500 Body mass index (BMI) [Ratio] 28.06 kg/m2 [facility] 07-18-2023 10:03-0500 Body weight 86.18 kg Pmh 1 [facility] [employer] [facility] 06-23-2023 12:54-0500 Body height 175.3 cm Verito Peters FENCE MACHINE OPERATOR-HYDROGRAPHY TEACHER [facility] 06-23-2023 12:54-0500 Body mass index (BMI) [Ratio] 27.35 kg/m2 Verito Peters FENCE MACHINE OPERATOR-HYDROGRAPHY TEACHER [facility] 06-23-2023 12:54-0500 Body weight 84.01 kg Verito Peters FENCE MACHINE OPERATOR-HYDROGRAPHY TEACHER [facility] 06-23-2023 12:54-0500 Diastolic blood pressure 63 mm[Hg] Verito Peters FENCE MACHINE OPERATOR-HYDROGRAPHY TEACHER [facility] 06-23-2023 12:54-0500 Systolic blood pressure 101 mm[Hg] Verito Peters FENCE MACHINE OPERATOR-HYDROGRAPHY TEACHER [facility] 08-29-2022 14:35-0400 Body height 175.26 cm Lesia Dickinson Other [facility] Other 08-29-2022 14:35-0400 Body mass index (BMI) [Ratio] 24.22 kg/m2 Lesia Dickinson Other [facility] Other 08-29-2022 14:35-0400 Body temperature 98.3 [degF] Lesia Dickinson Other [facility] Other 08-29-2022 14:35-0400 Body weight 74.39 kg Lesia Dickinson Other [facility] Other 08-29-2022 14:35-0400 Respiratory rate 18 /min Lesia Dickinson Other [facility] Other 08-29-2022 14:35-0400 SaO2% (BldA) [Mass fraction] 99 % Lesia Teena Other [facility] Other 03-14-2021 12:15-0400 Body height 175.26 cm Nancy Messina Other [facility] Other 03-14-2021 12:15-0400 Body mass index (BMI) [Ratio] 26.58 kg/m2 Nancy Messina Other [facility] Other 03-14-2021 12:15-0400 Body temperature 97.5 [degF] Nancy Messina Other [facility] Other 03-14-2021 12:15-0400 Body weight 81.65 kg Nancy Messina Other [facility] Other 03-14-2021 12:15-0400 SaO2% (BldA) [Mass fraction] 98 % Nancy Messina Other [facility] Other Encounters Encounter Date Encounter Type Care Provider Facility Start: 06-25-2024 End: 06-25-[address] [facility] Start: 05-20-2024 End: 05-20-2024 ambulatory [facility] Start: 05-06-2024 End: 05-06-2024 Telephone encounter Amada Kenyon Therese [facility] Pulmonary[facility]Sleep Medicine Start: 04-22-2024 End: 04-22-2024 Orders Only Les Saucedo FENCE MACHINE OPERATOR-PARK AIDE Work Phone: [facility] Comment on above: Diarrhea, unspecifie d Start: 04-09-2024 End: 04-09-2024 ambulatory PAYAL Justin ELIZABETH [facility] Start: 04-08-2024 End: 04-08-2024 ambulatory PAYAL Justin ELIZABETH [facility] Start: 01-15-2024 End: 01-15-2024 ambulatory LES SAUCEDO [facility] Start: 01-10-2024 End: 01-10-2024 ambulatory PAYAL JOHNSON [facility] Start: 01-10-2024 End: 01-10-2024 Subsequent hospital visit by physician Les Saucedo FENCE MACHINE OPERATOR - ATTENDING UROLOGIST Work Phone: [facility] Comment on above: Postprandial diarrhe a Start: 10-10-2023 End: 11-04-2023 ambulatory [facility] Start: 10-09-2023 End: 10-09-[address] [facility] Start: 10-09-2023 End: 10-09-2023 ambulatory [facility] Start: 09-04-2023 End: 10-04-2023 ambulatory [facility] Start: 08-28-2023 End: 08-28-[address] [facility] Start: 08-16-2023 End: 09-04-2023 ambulatory [facility] Start: 08-11-2023 Telephone [facility] Start: 08-11-2023 End: 08-11-[address] [facility] Start: 07-28-2023 Telephone encounter Ann Marie Rodriguez [facility] General Surgery Start: 07-25-2023 End: 07-25-2023 Evaluation and management of inpatient MADI Ariadna RAZO [facility] Start: 07-24-2023 End: 07-25-2023 Evaluation and management of inpatient BINTA BATEMAN [facility] Start: 07-18-2023 End: 07-18-2023 ambulatory [facility] Pat Phone Call Provider 1 [facility] - Pre Admit Start: 06-23-2023 End: 06-23-2023 Office outpatient new 30 minutes Verito Saleh Peters FENCE MACHINE OPERATOR-HYDROGRAPHY TEACHER Work Phone: [facility] General Surgery Comment on above: Positive colorectal cancer screening using Cologuard test (Primary Dx) Start: 06-23-2023 End: 06-23-2023 ambulatory VERITOISAAC PETERS [facility] Start: 08-29-2022 End: 08-29-2022 ambulatory Lesia Dickinson Other [facility] Other Start: 08-29-2022 Office outpatient vi sit 15 minutes Lesia Dickinson [facility] Start: 03-14-2021 Office outpatient vi sit 15 minutes Nancy Messina [facility] Procedures Date Procedure Procedure Detail Performing Clinician Start: 01-10-2024 Assay of gammaglobul in iga igd igg igm each Payal Johnson FENCE MACHINE OPERATOR - HYDROGRAPHY TEACHER Work Phone: Start: 07-24-2023 Colonoscopy Ann Marie carne CMA Plan of Treatment Date Care Activity Detail Author Start: 07-24-2033 Screening for malignant neoplasm of colon Colonoscopy [facility] Start: 07-21-2032 DTaP,Tdap and Td Vaccines (2 - Td or Tdap) DTaP,Tdap and Td Vaccines (2 - Td or Tdap) [facility] Start: 07-21-2032 DTaP/Tdap/Td vaccine (2 - Td or Tdap) DTaP/Tdap/Td vaccine (2 - Td or Tdap) [facility] Start: 05-28-2026 Screening for malignant neoplasm of colon [facility] Start: 10-08-2024 Adult BMI Screening Adult BMI Screening [facility] Start: 10-08-2024 Tobacco Screening Tobacco Screening [facility] Start: 07-24-2024 Adult BMI Screening Adult BMI Screening [facility] Start: 07-24-2024 Tobacco Screening Tobacco Screening [facility] Start: 07-18-2024 Adult BMI Screening Adult BMI Screening [facility] Start: 07-09-2024 Tobacco Screening Tobacco Screening [facility] Start: 06-23-2024 Adult BMI Screening Adult BMI Screening [facility] Start: 06-23-2024 Tobacco Screening Tobacco Screening [facility] Start: 05-20-2024 End: 05-20-2024 Patient encounter procedure 05/20/2024 10:45 AM EST Office Visit [facility] [address] [place] [phone] Mark Anthony Hansen MD [address] [place], [place] [id number] [facility] Start: 04-22-2024 End: 04-22-2025 CBC W Auto Differential panel - Blood CBC auto differential Lab Routine Diarrhea, unspecified Expected: 04/22/2024, Expires: 04/22/2025 [facility] Work Phone: Comment on above: Expected: 04/22/2024, Expires: Start: 04-22-2024 End: 04-22-2025 Comprehensive metabolic 2000 panel - Serum or Plasma Comprehensive metabolic panel Lab Routine Diarrhea, unspecified Expected: 04/22/2024, Expires: 04/22/2025 [facility] Work Phone: Comment on above: Expected: 04/22/2024, Expires: 5 Start: 02-21-2024 End: 02-21-2024 Patient encounter procedure 02/21/2024 11:00 AM EDT Office Visit [facility] [address] [place], [place] [id number] Payal Johnson, FENCE MACHINE OPERATOR - HYDROGRAPHY TEACHER [address] [place] [address] [facility] Comment on above: [facility] Start: 02-04-2024 Influenza vaccination Influenza Vaccine [facility] Start: 01-04-2024 Influenza vaccination Flu vaccine (#1) [facility] Start: 10-09-2023 End: 10-09-2023 Patient encounter procedure 10/09/2023 9:00 AM EDT Office Visit [facility] [address] [place] [phone] Mark Anthony Hansen MD [address] [place] [address] [facility] Start: 08-21-2023 End: 08-21-2023 Patient encounter procedure 08/21/2023 2:15 PM EDT Appointment [facility] MRI Imaging [address] [place] [phone] Abraham Hernandez DO [address] [place] [address] [facility] Start: 08-15-2023 End: 08-15-2023 Patient encounter procedure 08/15/2023 8:00 AM EDT Appointment [facility] - Pulmonary Function [address] [place] [phone] Mark Anthony Hansen MD [address], [address] [place] [address] [facility] Function Start: 07-24-2023 End: 07-24-2023 Admission to same day surgery center 07/24/2023 11:00 AM EST - 07/24/2023 11:45 AM EST Surgery [facility] Surgery [address] [place] [address] Binta Bateman, [address] [place], [place] [phone] ESOPHAGOGASTRODUODENOSCOPY DIAGNOSTIC [57164 (CPT )] [facility] Comment on above: ESOPHAGOGASTRODUODENOSCOPY DIAGNOSTIC [4 3235 (CPT )] Start: 07-24-2023 End: 07-24-2023 Anesthesia consultation 07/24/2023 11:00 AM EST Anesthesia Event [facility] Surgery [address] [place] [address] Madi Razo, DO [address] [place] [address] [facility] Start: 07-24-2023 End: 07-24-2023 Colonoscopy flx dx w/collj spec when pfrmd COLONOSCOPY DIAGNOSTIC / SCREENING positive cologuard 07/24/2023 11:00 AM EST [facility] Start: 07-24-2023 End: 07-24-2023 Esophagogastroduodenoscopy transoral diagnostic ESOPHAGOGASTRODUODENOSCOPY DIAGNOSTIC positive cologuard 07/24/2023 11:00 AM EST [facility] Start: 07-24-2023 Subsequent hospital visit by physician 07/24/2023 11:00 AM EST Hospital Encounter [facility] Surgery [address] [place] [address] [place] [address] [place] [id number] [facility] Start: 07-18-2023 End: 07-18-2023 ambulatory 07/18/2023 4:00 PM EST Support Visit [facility] - Pre Admit [address] [place] [address] [facility] Pre Admit Start: 02-03-2023 Influenza vaccination Influenza Vaccine [facility] [employer] [facility] Start: 2022 Administration of varicella zoster vaccine Zoster (Shingles) Vaccine (1 of 2) [facility] [employer] [facility] Start: 2022 Shingles vaccine (1 of 2) Shingles vaccine (1 of 2) [facility] Start: 2017 Screening for malignant neoplasm of colon [facility] Start: 2012 Lipid panel Lipids [facility] Start: 09-07-2007 Diabetes screen Diabetes screen [facility] Start: 1990 Adult BMI Follow Up Plan Adult BMI Follow Up Plan [facility] Start: 1990 Hepatitis C screening Hepatitis C screen [facility] Start: 09-07-1987 HIV screening HIV screen [facility] [facility] Start: 1984 Depression Screen Depression Screen [facility] Start: 1984 Depression Screening Depression Screening [facility] Start: 03-08-1973 COVID-19 Vaccine (#1) COVID-19 Vaccine (#1) [facility] [employer] Start: 1972 Hepatitis B vaccine (1 of 3 - 3-dose series) Hepatitis B vaccine (1 of 3 - 3-dose series) [facility] Start: 1972 Tobacco Counseling Tobacco Counseling [facility] Celiac Disease Panel Celiac Dise ase Panel Lab Routine Postprandial diarrhea 01/10/2024 3:35 PM EDT [facility] End: 06-23-2024 EGD / Colonoscopy EGD / Colonoscopy GI Routine Positive colorectal cancer screening using Cologuard test 1 Occurrences starting 06/23/2023 until 06/23/2024 [facility] Work Phone: Comment on above: 1 Occurrences starting 06/23/2023 until 06/23/2024 Immunizations Immunization Date Immunization Notes Care Provider Sandra preston 07-21-2022 tetanus toxoid, redu michael diphtheria toxoid, and acellular pertussis vaccine, adsorbed Verito Peters FENCE MACHINE OPERATOR-HYDROGRAPHY TEACHER Work Phone: [facility] Payers Date Payer Category Payer Medicaid HMO [facility] MEDICAID [id number] 2022 Private Health Insurance [facility] [id number] 2022-Present [phone] [address] [place] [address] [id number] 2022 Private Health Insurance [id number] 1970 Unknown [id number] 2.16840.1.988397.3.579. 2.174 1972 Unknown [id number] 2.16840.1.391785.3.579. 2.1286 1972 Unknown [id number] 2.16840.1.445079.3.579. 2.1285 1972 Unknown [id number] 2.16840.1.497086.3.579. 2.1286 1972 Unknown [id number] 2.16840.1.339343.3.579. 2.1285 1972 Unknown [id number] 2.16840.1.436791.3.579. 2.6 1972 Unknown [id number] 2.16840.1.061406.3.579. 2.128 1972 Unknown [id number] 2.16.840.1.126004.3.579. 2.1286 1972 Unknown [id number] 2.16840.1.546736.3.579. 2.1286 1972 Unknown [id number] 2.16840.1.792502.3.579. 2.1286 1972 Unknown [id number] 2.16840.1.909049.3.579. 2.1286 1972 Unknown [id number] 2.16840.1.436827.3.579. 2.1286 1972 Unknown [id number] 2.16.840.1.488009.3.579. 2.1286 1972 Unknown [id number] 2.16.840.1.004484.3.579. 2.1286 1972 Unknown [id number] 2.16.840.1.119548.3.579. 2.6 1972 Unknown [id number] 2.16.840.1.688646.3.579. 2.1286 1972 Unknown [id number] 2.16.840.1.172480.3.579. 2.1286 1972 Unknown [id number] 2.16.840.1.890567.3.579. 2.6 1972 Unknown [id number] 2.16.840.1.623721.3.579. 2.1285 1972 Unknown [id number] 2.16.840.1.354124.3.579. 2.1286 Unknown [id number] 2.16.840.1.353064.19 Social History Date Type Detail Facility Start: 07-16-2020 End: 06-23-2023 Sex Assigned At [facility] Start: 06-05-1988 End: 10-09-2023 Tobacco smoking status NHIS Smokes tobacco daily [facility] Start: 06-05-1988 History of tobacco use Cigarette Smo ker [facility] Start: 07-16-2020 End: 06-23-2023 Cigarettes smoked current (pack per day) - Reported 0.2 [facility] Start: 06-23-2023 End: 07-18-2023 Tobacco use and exposure Smokeless tobacco non-user [facility] Start: 06-23-2023 End: 10-09-2023 Alcohol intake Ex-drinker (finding) [facility] Housing Instability Unknown [facility] Start: 06-23-2023 Alcohol Comment RARELY [facility] Start: 1970 Sex Assigned At Male P [facility] Start: 06-03-2023 Gender identity Identifies as male gender (finding) [facility] Start: 06-03-2023 Sexual orientation Heterosexual (carola dailey) [facility] Start: 10-09-2023 Tobacco use and exposure User of smokeless tobacco [facility] History of tobacco use Chews Tobacco [facility] Start: 01-08-2015 Sex Male (finding) [facility] Tobacco smoking stat NHIS Tobacco smoking consumption unknown [facility] Start: 1970 Sex Assigned At Not on file B [facility] Clinical Notes 03-14-2021 to 05-06-2024 Telephone Encounter - SETH Lin - 05/06/2024 9:00 AM ESTTelephone Encounter - Mark Anthony Hansen MD - 05/06/2024 9:00 AM ESTTelephone Encounter - SETH Lin - 05/06/2024 9:00 AM EST Note Date & Type Note Facility 05-06-2024 Miscellaneous Notes Patient sent Bio message requesting an appointment stating: Breathing is worse, coughing and can not do the inhaler without coughing. Fieldwork Coordinator called patient and patient stated that his current symptoms are: Cough - with yellow phlegm Wheezing - in the morning SOB - in the morning Fevers, body aches, chills and sick contacts: his girlfriend was sick recently, stated that she only had a sore throat Nebulizer: none Inhaler(s): Spiriva (2 puffs QAM), levalbuterol (patient states that he doesn't use as it does not help) Allergies: NKA Pharmacy: [facility] [address] [place] [address] Patient last seen 10/12/2023 for: Shortness of breath Patient does have an appointment with his PCP today, patient is also scheduled for a follow up with MT on 06/24/2024. Recommend to keep the appointment with the PCP today and follow PCP recommendations. He can follow up with us on 05/20 at 10:45 a.m.. Fieldwork Coordinator called patient and informed him to keep his appointment with his PCP, video game script writer also informed patient that per MT, he would like patient to come in on 05/20/2024 at 10:45am. Patient confirmed that he can come in on 05/20/2024 at 10:45am. documented in this encounter [facility] 05-06-2024 Telephone encounter Note Patient sent Bio message requesting an appointment stating: Breathing is worse, coughing and can not do the inhaler without coughing. Fieldwork Coordinator called patient and patient stated that his current symptoms are: Cough - with yellow phlegm Wheezing - in the morning SOB - in the morning Fevers, body aches, chills and sick contacts: his girlfriend was sick recently, stated that she only had a sore throat Nebulizer: none Inhaler(s): Spiriva (2 puffs QAM), levalbuterol (patient states that he doesn't use as it does not help) Allergies: NKA Pharmacy: [facility] [address] [place] [address] Patient last seen 10/12/2023 for: Shortness of breath Patient does have an appointment with his PCP today, patient is also scheduled for a follow up with MT on 06/24/2024. [facility] 05-06-2024 Telephone encounter Note Recommend to keep the appointment with the PCP today and follow PCP recommendations. He can follow up with us on 05/20 at 10:45 a.m.. [facility] 05-06-2024 Telephone encounter Note Fieldwork Coordinator called patient and informed him to keep his appointment with his PCP, video game script writer also informed patient that per MT, he would like patient to come in on 05/20/2024 at 10:45am. Patient confirmed that he can come in on 05/20/2024 at 10:45am. [facility] 08-11-2023 Miscellaneous Notes Complete PFT and chest x ray placed per protocol. documented in this encounter [facility] 08-11-2023 Telephone encounter Note Complete PFT and chest x ray placed per protocol. [facility] 07-28-2023 Miscellaneous Notes ----- Message from Binta Bateman DO sent at 07/28/2023 8:21 AM EST ----- Please let patient know that he has gastritis most likely from taking ibuprofen. He may want to stop the ibuprofen but may continue if not having epigastric pain and take the omeprazole. I would like him to take omeprazole OTC for 6 weeks only. He had hyperplastic polyps therefore he doesn't need another screening scope for 10 instead of 5 years. ThanksDr. Jaimes Spoke with patient regarding pathology results. Patient verbally understood with no further questions. Informed patient of Dr. Bateman's recommendations and recall will be put into chart. documented in this encounter [facility] 07-28-2023 Telephone encounter Note ----- Message from Binta Bateman DO sent at 07/28/2023 8:21 AM EST ----- Please let patient know that he has gastritis most likely from taking ibuprofen. He may want to stop the ibuprofen but may continue if not having epigastric pain and take the omeprazole. I would like him to take omeprazole OTC for 6 weeks only. He had hyperplastic polyps therefore he doesn't need another screening scope for 10 instead of 5 years. Thanks, Dr. Jaimes [facility] 07-28-2023 Telephone encounter Note Spoke with patient regarding pathology results. Patient verbally understood with no further questions. Informed patient of Dr. Bateman's recommendations and recall will be put into chart. [facility] 07-18-2023 Nurse Note Preoperative Education Checklist- General Surgery date: 07/24/23 Surgery time: 11a Arrival time: 9a 1. Bring a photo ID and your insurance card with you the day of surgery. You will check in at the main lobby of the [facility]- registration desk is straight ahead as soon as you walk in. Tell them you are here for surgery. 2. If you have a Living Will/Durable Power of In Process Inspector for Health Care that is not on file here, please bring a copy the day of surgery. 3. Please shower/bathe the night before surgery with the provided soap or wipes. Do not shower the morning of surgery- you will do use wipes when you arrive here at the hospital before getting into your surgical gown. Do not shave the area of your procedure for 2 days prior to your surgery. 4. NO powder, lotion, perfume/cologne, aftershave, make-up, deodorant, or hair products after you have bathed. 5. NO nail armenian/acrylic on at least one finger. If you are having a hand, wrist or foot surgery then all nail armenian and artificial/acrylic nails must be removed from that hand or foot. 6. Avoid ALL Aspirin and non-steroidal anti-inflammatory drugs and certain vitamins (Ibuprofen, Advil, Aleve, Excedrin, Meloxicam, Celebrex, fish/krill oil, etc.) for 7 days prior to surgery as instructed by your surgeon and/or your prescribing doctor. Tylenol IS ALLOWED. If you are on Ticlid, Xarelto, Eliquis, Pradaxa, Plavix or Coumadin, please check with your prescribing doctor for instructions for when to stop them. 7. If you use an inhaler, continue to use it routinely. 8. Nothing to eat or drink (not even water, gum, mints, or hard candy!) AFTER midnight prior to your surgery. 9. Take only medications that you are instructed to on the morning of surgery with a TINY SIP OF WATER. 10. Choose a responsible adult that will be able to drive you home when you are discharged from your hospital stay for your surgery and can stay with you in your home for 24 hours after your procedure. You must NOT drive any vehicle or operate any machinery for 24 hours after surgery. 11. When you dress for your appointment, please wear loose fitting clothing that is appropriate to accommodate your surgical area procedure. BRING WITH YOU ANY DEVICES YOU MAY NEED: AUGUST hose, ice machine, sling/swath, brace or special shoe, oversized zip-up or button up shirt, CPAP machine if staying overnight. 12. Do NOT wear jewelry, watches, or any piercings or metal for surgery- leave these valuables and money at home. 13. Do NOT wear contact lenses for surgery- glasses are okay if needed. 14. The anesthesiologist will talk with you the day of surgery and will ask you to sign a Consent Form. 15. Refrain from smoking or any type of tobacco use for at least 8 hours and marijuana for 24 hours prior to arrival for your surgery. 16. If a GREEN BLOOD band is given to you, please bring it with you for the day of surgery. 17. Notify your surgeon if you develop any illness before your surgery. 18. If you are staying overnight, please DO NOT BRING your home medications with you. 19. If you have any questions prior to surgery, please call the Preadmission Testing office at [phone], Mon.-Fri. 7 a.m.-3 p.m. Leave a voicemail if needed. Pre-Surgery Instructions: Medication Instructions ibuprofen (MOTRIN) 800 mg tablet Stop taking 1 week prior to procedure [facility] [employer] [facility] 07-18-2023 Miscellaneous Notes Preoperative Education Checklist- General Surgery date: 07/24/23 Surgery time: 11a Arrival time: 9a 1. Bring a photo ID and your insurance card with you the day of surgery. You will check in at the main lobby of the [facility]- registration desk is straight ahead as soon as you walk in. Tell them you are here for surgery. 2. If you have a Living Will/Durable Power of In Process Inspector for Health Care that is not on file here, please bring a copy the day of surgery. 3. Please shower/bathe the night before surgery with the provided soap or wipes. Do not shower the morning of surgery- you will do use wipes when you arrive here at the hospital before getting into your surgical gown. Do not shave the area of your procedure for 2 days prior to your surgery. 4. NO powder, lotion, perfume/cologne, aftershave, make-up, deodorant, or hair products after you have bathed. 5. NO nail armenian/acrylic on at least one finger. If you are having a hand, wrist or foot surgery then all nail armenian and artificial/acrylic nails must be removed from that hand or foot. 6. Avoid ALL Aspirin and non-steroidal anti-inflammatory drugs and certain vitamins (Ibuprofen, Advil, Aleve, Excedrin, Meloxicam, Celebrex, fish/krill oil, etc.) for 7 days prior to surgery as instructed by your surgeon and/or your prescribing doctor. Tylenol IS ALLOWED. If you are on Ticlid, Xarelto, Eliquis, Pradaxa, Plavix or Coumadin, please check with your prescribing doctor for instructions for when to stop them. 7. If you use an inhaler, continue to use it routinely. 8. Nothing to eat or drink (not even water, gum, mints, or hard candy!) AFTER midnight prior to your surgery. 9. Take only medications that you are instructed to on the morning of surgery with a TINY SIP OF WATER. 10. Choose a responsible adult that will be able to drive you home when you are discharged from your hospital stay for your surgery and can stay with you in your home for 24 hours after your procedure. You must NOT drive any vehicle or operate any machinery for 24 hours after surgery. 11. When you dress for your appointment, please wear loose fitting clothing that is appropriate to accommodate your surgical area procedure. BRING WITH YOU ANY DEVICES YOU MAY NEED: AUGUST hose, ice machine, sling/swath, brace or special shoe, oversized zip-up or button up shirt, CPAP machine if staying overnight. 12. Do NOT wear jewelry, watches, or any piercings or metal for surgery- leave these valuables and money at home. 13. Do NOT wear contact lenses for surgery- glasses are okay if needed. 14. The anesthesiologist will talk with you the day of surgery and will ask you to sign a Consent Form. 15. Refrain from smoking or any type of tobacco use for at least 8 hours and marijuana for 24 hours prior to arrival for your surgery. 16. If a GREEN BLOOD band is given to you, please bring it with you for the day of surgery. 17. Notify your surgeon if you develop any illness before your surgery. 18. If you are staying overnight, please DO NOT BRING your home medications with you. 19. If you have any questions prior to surgery, please call the Preadmission Testing office at [phone], Mon.-Fri. 7 a.m.-3 p.m. Leave a voicemail if needed. Pre-Surgery Instructions: Medication Instructions ibuprofen (MOTRIN) 800 mg tablet Stop taking 1 week prior to procedure documented in this encounter [facility] [employer] [facility] 06-23-2023 History of Presen t illness Narrative Images from the original note were not included. Chief Complaint: Positive Cologuard History of Present Illness Robyn Mccullough is a 52 y.o. male who presents to the office for positive Cologuard. He denies any changes in his bowels including diarrhea, constipation, abdominal pain, melena, hematochezia, unexplained weight loss. He states he has regular bowel movements. He has never had a colonoscopy. There is no family history of colon cancer. Review of Systems Constitutional: Negative for fever and unexpected weight change. HENT: Negative for trouble swallowing. Respiratory: Negative for shortness of breath. Cardiovascular: Negative for chest pain and palpitations. Gastrointestinal: Negative for nausea, vomiting, abdominal pain, diarrhea, constipation, blood in stool and black tarry stool. Genitourinary: Negative for dysuria and difficulty urinating. Musculoskeletal: Negative for joint swelling and gait problem. Skin: Negative for rash and wound. Allergic/Immunologic: Negative for immunocompromised state. Neurological: Negative for dizziness, weakness and light-headedness. Hematological: Does not bruise/bleed easily. Psychiatric/Behavioral: Negative for behavioral problems and confusion. History reviewed. No pertinent past medical history. History reviewed. No pertinent surgical history. No Known Allergies Current Outpatient Medications: cyclobenzaprine (FLEXERIL) 10 mg tablet, Take 1 tablet (10 mg total) by mouth 2 (two) times a day as needed for muscle spasms. Do not take when driving or lifting heavy machinery., Disp: 10 tablet, Rfl: 0 ibuprofen (MOTRIN) 800 mg tablet, Take 1 tablet (800 mg total) by mouth every 8 (eight) hours as needed for pain., Disp: 30 tablet, Rfl: 0 penicillin potassium 125 mg/5 mL solution, Take by mouth 4 (four) times a day., Disp: , Rfl: varenicline (CHANTIX) 0.5 mg tablet, Take 2 tablets (1 mg total) by mouth in the morning., Disp: , Rfl: peg 3350-sod sulf,btlw-pdc-dgr 178.7-7.3-0.5 gram recon soln, Take 1 kit by mouth once daily for 1 dose. Please see instructional sheet given by physicians office., Disp: 1 each, Rfl: 0 Social History Socioeconomic History Marital status: Spouse name: Not on file Number of children: Not on file Years of education: Not on file Highest education level: Not on file Occupational History Not on file Tobacco Use Smoking status: Every Day Packs/day: 0.20 Years: 30.00 Additional pack years: 0.00 Total pack years: 6.00 Types: Cigarettes Smokeless tobacco: Never Vaping Use Vaping Use: Every day Substances: Nicotine, THC Substance and Sexual Activity Alcohol use: Not Currently Comment: RARELY Drug use: Yes Types: Medical Marijuana Sexual activity: Not on file Other Topics Concern Not on file Social History Narrative Not on file Social Determinants of Health Financial Resource Strain: Not on file Food Insecurity: No Food Insecurity (06/14/2023) Hunger Screening Food Insecurity - Worry: Never True Food Insecurity - Inability: Never True Transportation Needs: Not on file Physical Activity: Not on file Stress: Not on file Social Connections: Not on file Interpersonal Safety: Not on file Family History Problem Relation Age of Onset COPD Mother Heart disease Father Liver disease Father Heart failure Father Breast cancer Maternal Aunt Breast cancer Maternal Grandmother Objective Physical Exam Constitutional: Appearance: Normal appearance. HENT: Head: Normocephalic and atraumatic. Mouth/Throat: Mouth: Mucous membranes are moist. Eyes: Pupils: Pupils are equal, round, and reactive to light. Cardiovascular: Rate and Rhythm: Normal rate and regular rhythm. Pulmonary: Effort: Pulmonary effort is normal. No respiratory distress. Abdominal: General: There is no distension. Palpations: Abdomen is soft. Musculoskeletal: General: Normal range of motion. Cervical back: Normal range of motion. Skin: General: Skin is warm and dry. Neurological: Mental Status: He is alert and oriented to person, place, and time. Mental status is at baseline. Vital Signs: Blood pressure 101/63, height 175.3 cm (5' 9 ), weight 84 kg (185 lb 3.2 oz). Respiratory Source: No data recorded Admission Weight: Weight: 84 kg (185 lb 3.2 oz) Labs Lab Results Component Value Date WBC 7.1 09/14/2022 HGB 14.3 09/14/2022 HCT 42.8 09/14/2022 MCV 90 09/14/2022 PLT 272 09/14/2022 Lab Results Component Value Date GLU 128 (H) 09/14/2022 CALCIUM 9.3 09/14/2022 K 4.1 09/14/2022 CO2 27 09/14/2022 CL 103 09/14/2022 BUN 16 09/14/2022 CREATININE 1.02 09/14/2022 No results found for: AMYLASE Lab Results Component Value Date LIPASE 36 09/14/2022 Lab Results Component Value Date ALT 27 09/14/2022 AST 26 09/14/2022 ALKPHOS 64 09/14/2022 Lab Results Component Value Date INR 1.1 09/14/2022 PROTIME 12.9 09/14/2022 Assessment Robyn Mccullough is a 52 y.o.male with positive Cologuard. Plan EGD and colonoscopy with possible biopsy and/or polypectomy. Risks, benefits, and alternatives discussed with patient. Educated on bowel evacuation preparation. Patient verbalizes understanding and wishes to proceed. Evaluation included: Preparing to see the patient (e.g., review of tests) Obtaining and/or reviewing separately obtained history Performing a medically appropriate examination and/or evaluation Counseling and educating the patient/family/caregiver Referring and communicating with other health school child care attendant Positive colorectal cancer screening using Cologuard test [R19.5] MARIO MURPHY [facility] General Surgery [place] This note was created with the assistance of a speech recognition program. While intending to generate a timely document that accurately reflects the content of the visit, no guarantee can be provided that every grammatical or spelling mistake has been or will be identified or corrected. Thank you for your understanding. MARIO Murphy 06/23/23 1329 documented in this encounter [facility] 08-29-2022 Evaluation note Encounter Date Diagnosis Assessment Notes Aug, COVID-19 (ICD-10 - U07.1) Discharge Instructions for COVID-19 (Suspected or Confirmed ) material was printed Drink plenty fluids, get plenty of rest. Take Tylenol or Motrin as needed for aches pains or fevers. You must quarantine for 5 days after the onset of your symptoms of COVID. Follow-up with your family physician if no improvement in 2 to 3 days. Go to the ER for worsening symptoms or concerns Aug, Contact with and (suspected) exposure to covid-19 (ICD-10 - Z20.822) [employer] Other 10-10-2021 Evaluation note* Encounter Date Diagnosis Assessment Notes Treatment Notes Treatment Clinical Notes Mar, Contact with and (suspected) exposure to other viral communicable diseases (ICD-10 - Z20.828) Today test was performed in office. Results are currently negative. That does not mean that you will not develop COVID or do not currently have a low viral count of COVID. The rapid test works best if symptoms have been over 72 hours and the results can vary if you are asymptomatic There is a higher chance of false negative results to occur if testing is performed too soon. It is recommended that even if results are negative and you have been exposed to someone that has COVID that you follow current CDC recommendations. These can be found at CDC.GOV. Follow up with primary care provider if symptoms persist or do not improve Mar, Other Additional time spent conducting pre-visit phone call, screening for symptoms, instructions on social distancing, application and removal of PPE, and cleaning of examination room, equipment and supplies was preformed. Patient education given for testing methodology and results. Patient care instructions given in writting by [facility] document. [facility] Other Evaluation note* Diagnosis Positive colorectal cancer screening using Cologuard test- Primary documented in this encounter [facility]* Diagnosis Diarrhea, unspecified documented in this encounter [facility]* Diagnosis Postprandial diarrhea Diarrhea documented [facility] this encounter [facility] SystemInstructionsNot on filedocumented in this encounter [facility] SystemInstructionsNot on filedocumented in this encounter [facility] SystemInstructionsNot on filedocumented in this encounter [facility] SystemInstructionsNot on filedocumented in this encounter [facility] Summary Purpose Family History No Family History Records FoundNo Family History Records FoundNo Family History Records Found Advance Directives No Advanced Directives Records FoundNo Advanced Directives Records FoundNo Advanced Directives Records Found Additional Source Comments REASON FOR VISIT (unrecogniz ed section and content) Reason Comments POSITIVE COLOGUARD REFERRED BY NILA JOLLEY Care Teams (unrecognized sec tion and content) Relay Dispatcher Relationship Specialty Start Date End Date Services, [facility] [address] PCP - General Family Medicine 08/28/22 Relay Dispatcher Relationship Specialty Start Date End Date Services, [facility] [address], [place] PCP - General Family Medicine 08/28/22 Relay Dispatcher Relationship Specialty Start Date End Date Services, [facility] [address] PCP - General Family Medicine 08/28/22 Relay Dispatcher Relationship Specialty Start Date End Date [facility] [address] PCP - General Family Medicine 08/28/22 Relay Dispatcher Relationship Specialty Start Date End Date Services, [facility] [address] [place] PCP - General Family Medicine 08/28/22 Relay Dispatcher Relationship Specialty Start Date End Date [facility] [address] [place] PCP - General [facility] 08/28/22 Relay Dispatcher Relationship Specialty Start Date End Date Les Saucedo APRN - JU[facility] [address] [place] [address] PCP - General Nurse Practitioner 01/04/24 (unrecognized sect ion and content) No Status Records FoundNo Status Records FoundNo Status Records Found INFORMATION SOURCE (unrecogn ized section and content) DATE CREATED AUTHOR 01/13/2024 [facility] DATE CREATED AUTHOR AUTHOR'S ORGANIZ ATION 05/22/2024 [facility] DATE CREATED AUTHOR AUTHOR'S ORGANIZ ATION 06/26/2024 [facility] FOR RECORDS PERTAINING TO PATIENTS WHO ARE OR HAVE BEEN ENROLLED IN A CHEMICAL DEPENDENCY/SUBSTANCEABUSE PROGRAM, SOME INFORMATION MAY BE OMITTED. This clinical summary was aggregated from multiple sources. Caution should be exercised in using it in the provision of clinical care. This summary normalizes information from multiple sources, and as a consequence, information in this document may materially change the coding, format and clinical context of patient data. In addition, data may be omitted in some cases. CLINICAL DECISIONS SHOULD BE BASED ON THE PRIMARY CLINICAL RECORDS. [employer] [facility]. provides no warranty or guarantee of the accuracy or completeness of information in this document.
== END 2024-07-13 18:53 | disposition home or self-care (01) ==
LOC: ER 18:21
PROVIDERS: Emergency Provider Emergency Medicine; Family Provider Family Medicine
DX: J11.1 Influenza due to unidentified influenza virus with other respiratory manifestations (principal); J44.1 Chronic obstructive pulmonary disease with (acute) exacerbation; B37.0 Candidal stomatitis; R11.2 Nausea with vomiting, unspecified
CPT/HCPCS: 99283; Q0162

== ENCOUNTER 2024-07-14 15:15 | Emergency (ER) | payer OTHER, SELFPAY ==
[2024-07-14] VITALS (16 sets, daily range): BP systolic 112–123; BP diastolic 57–63; PULSE 98; TEMP 37.4–38.7; O2SAT 95–99; BMI 28.1
--- OUTSIDE RECORDS SUMMARY | 2024-07-14 15:28 | XMS_ITS | CCD ---
Author Organization [facility] Care Team Providers Care Foam Molder Name Role Phone Nancy Messina Unavailable TeenaLesia moya Unavailable Services, [facility] Primary Care Provider PAYAL JOHNSON Referring Unavailable SHERYL, [place] Primary Care Unavailable TALEB, MARK ANTHONY Attending Unavailable LES SAUCEDO Referring Unavailable SERVICES, [facility] Care Unava ilable VERITO PETERS Attending Unavailable SERVICES, [facility] Primary Care Unava ilable TALEB, MARK ANTHONY Attending Unavailable SERVICES, [facility] Care Unava ilable TALEB, MARK ANTHONY Attending Unavailable TALEB, MARLEED Referring Unavailable SERVICES, [facility] Care Unava ilable SHAMMO, NILA Referring Unavailable SERVICES, [facility] Care Unava ilable TALEB, MOHTERRYD Attending Unavailable TALEB, MOHAMMAD Referring Unavailable SERVICES, [facility] Care Unava ilable SHAMMO, NILA Referring Unavailable SERVICES, [facility] Care Unava ilable TALEB, MOHAMMAD Referring Unavailable SERVICES, [facility] Primary Care Unava ilable SHAMMO, NILA Referring Unavailable SERVICES, [facility] Primary Care Unava ilable SERVICES, [facility] Care Unava ilable BINTA BATEMAN Admitting Unavailable BINTA BATEMAN Attending Unavailable BINTA BATEMAN Referring Unavailable SERVICES, [facility] Primary Care Unava ilable BINTA BATEMAN Attending Unavailable BINTA BATEMAN Referring Unavailable SERVICES, [facility] Unava ilable LES SAUCEDO Referring Unavailable SERVICES, [facility] Unava ilable PAYAL JOHNSON Referring Unavailable SERVICES, [facility] Unava ilable PAYAL JOHNSON Referring Unavailable SERVICES, [facility] Unava ilable TALSUZY, MARK ANTHONY Attending Unavailable TALEB, MARK ANTHONY Referring Unavailable SERVICES, [facility] MADI Page Attending Unavailable SERVICES, [facility] Mateo Saucedo NEWS CLERK - WEEKEND RECEPTIONIST, [place] Primary Care Provider Allergies Allergy Classification Reported Allergen(s) Allergy Type Date of Onset Reaction(s) Facility (1 source) Penicillins Propensity to adverse reactions to drug 01-10-2024 [facility] Medications Current Medications Medication Drug Class(es) Dates Sig (Normalized) Sig (Original) [id number] actuat albuterol 0.09 mg/actuat metered dose inhaler (4 sources) beta2-Adrenergic Agonist Start: 10-09-2023 take 2 puff(s) by inhalation every six hours as needed for wheezing albuterol (PROVENTIL HFA;VENTOLIN HFA) 90 mcg/actuation inhaler Indications: Simple chronic bronchitis ([facility]) Inhale 2 puffs every 6 (six) [...] 24 hours 0 10/04/2023 Active peg 3350-sod sulf,leao-dmy-qmn 178.7-7.3-0.5 gram recon soln (1 source) Start: 06-23-2023 End: 06-24-2023 peg 3350-sod sulf,ksec-txw-lho 178.7-7.3-0.5 gram recon soln Indications: Positive colorectal [...] aided detection for pulmonary nodules?was performed utilizing [employer] software.? FINDINGS: Diagnostic quality: Satisfactory Lung nodules: [...] 9:24 AM 2 LDCT 1 Yr Normal [facility] C DIFFICILE BY PCRon 024 C. difficile toxin genes ANDRZEJ+probe Ql (Stl) TOXIGENIC C DIFF Negative (qualifier value) 027 NAP1 Negative (qualifier value) Normal PRNEG [facility] Comment on above: Performed By: #### 5 4067-4 #### [facility] ([id number]) [address] [place] [address], [address] [place] [address] #### 28448-6 #### [facility] ([id number]) [address] [place] [address], [place] [address] [facility] ([id number]) [address] [place] [address], [address] [place] [address] Elastase.pancreatic (Stl) [M ass/Mass]on 04-08-2024 Pancreatic Elastase, F 123 mcg/g Low >200 (Normal) [facility] Comment on above: Result Comment: NOTE Interpretation: Borderline (100-200 mcg/g); Consistent with slight to moderate pancreatic insufficiency Test Performed by: [facility] [address] [place] [address] Warehouse Insulation Worker: Erich Rick Ph.D.; CLIA# [id number] Performed By: #### 2 5907-7 #### [facility] ([id number]) [address] [place] [address], [place] [address] GI PANELon 04-08-2024 Gastrointestinal pathogens DNA and [...] the following: Norovirus Genogroups I, II The clerical administrator has reported an increase in false positive Norovirus results. If the positive test is inconsistent with clinical presentation, a secondary method should be used to confirm the results. ROTAVIRUS A Not detected (qualifier value) SAPOVIRUS Not detected (qualifier value) Normal NDET [facility] Comment on above: Performed By: #### 5 4067-4 #### [facility] ([id number]) [address] [facility], [address] [place] [address] #### 80537-4 #### [facility] ([id number]) [address] [place] [address], [place] [address] [facility] ([id number]) [address], [address] [place] [address] CBC AND AUTO DIFFon 01-15-20 24 ABSOLUTE BASOPHIL 0.0 X10E9/L Normal 0.0-0.2 [facility] Comment on above: Performed By: #### C BCA, CMP #### [facility] ([id number]) [address], [address] [place] [address] ABSOLUTE NEUTROPHIL 6.2 X10E9/L Normal 1.5-6.[address] [facility] Comment on above: Performed By: #### C BCA, CMP #### [facility] ([id number]) [address], [address] [place] [address] Basophils/100 WBC (Bld) 0.6 % Normal [facility] Comment on above: Performed By: #### C BCA, CMP #### [facility] ([id number]) [address], [facility] [address] [place] [address] Eosinophils (Bld) [#/Vol] 0.2 10*3/uL Normal 0.0-0.4 [facility] Comment on above: Performed By: #### C BCA, CMP #### [facility] ([id number]) [address], [address] [address] Eosinophils/100 WBC (Bld) 2.6 % Normal [facility] Comment on above: Performed By: #### C BCA, CMP #### [facility] ([id number]) [address], [address] [place] [address] Erythrocyte distribution width (RBC) [Ratio] 13.7 % Normal 11.5-15.0 [facility] Comment on above: Performed By: #### C BCA, CMP #### [facility] ([id number]) [address], [address] [place] [address] Hematocrit (Bld) [Volume fraction] 44.0 % Normal 39-49 [facility] Comment on above: Performed By: #### C BCA, CMP #### [facility] ([id number]) [address] [address] [place] [address] Hemoglobin (Bld) [Mass/Vol] 15.0 g/dL Normal 13.0-17.0 [facility] Comment on above: Performed By: #### C MADHAVI, CMP #### [facility] ([id number]) [address] [address] [place] [address] Lymphocytes (Bld) [#/Vol] 1.4 10*3/uL Normal 1.0-3.5 [facility] Comment on above: Performed By: #### C MADHAVI, CMP #### [facility] ([id number]) [address], [address] [place] [address] Lymphocytes/100 WBC (Bld) 16.3 % Normal [facility] Comment on above: Performed By: #### C BCA, CMP #### [facility] ([id number]) [address], [address] [place] [address] MCH (RBC) [Entitic mass] 30.6 pg Normal 27-34 [facility] Comment on above: Performed By: #### C BCA, CMP #### [facility] ([id number]) [address] [address] [place] [address] MCHC (RBC) [Mass/Vol] 34.1 g/dL Normal 32-36 [facility] Comment on above: Performed By: #### C BCA, CMP #### [facility] ([id number]) [address], [address] [place] [address] MCV (RBC) [Entitic vol] 90 fL Normal 80-100 [facility] Comment on above: Performed By: #### C BCA, CMP #### [facility] ([id number]) [address], [address] [place] [address] Monocytes (Bld) [#/Vol] 0.8 10*3/uL Normal 0-0.9 [facility] Comment on above: Performed By: #### C BCA, CMP #### [facility] ([id number]) [address], [address] [place] [address] Monocytes/100 WBC (Bld) 8.9 % Normal [facility] Comment on above: Performed By: #### C BCA, CMP #### [facility] ([id number]) [address], [address] [place] [address] Neutrophils/100 WBC (Bld) 71.6 % Normal [facility] Comment on above: Performed By: #### C BCA, CMP #### [facility] ([id number]) [address], [address] [place] [address] Platelet mean volume (Bld) [Entitic vol] 9.5 fL Normal 7-12 [facility] Comment on above: Performed By: #### C BCA, CMP #### [facility] ([id number]) [address], [address] [place] [address] Platelets (Bld) [#/Vol] 226 10*3/uL Normal 150-450 [facility] Comment on above: Performed By: #### C BCA, CMP #### [facility] ([id number]) [address], [address] [place] [address] RBC COUNT 4.90 X10E12/L Normal 4.10-5.70 [facility] Comment on above: Performed By: #### C BCA, CMP #### [facility] ([id number]) [address], [address] [place] [address] WBC (Bld) [#/Vol] 8.6 10*3/uL Normal 4.0-11.0 [facility] Comment on above: Performed By: #### C BCA, CMP #### [facility] ([id number]) [address], [address] [place] [address] COMPREHENSIVE METABOLIC PANE Leandro 01-15-2024 Albumin [Mass/Vol] 4.1 g/dL Normal 3.2-5.3 [facility] Comment on above: Performed By: #### C BCA, CMP #### [facility] ([id number]) [address], [address] [place] [address] ALP [Catalytic activity/Vol] 72 U/L Normal 39-130 [facility] Comment on above: Performed By: #### C BCA, CMP #### [facility] ([id number]) [address], [address] [place] [address] ALT [Catalytic activity/Vol] 11 U/L Normal 0-40 [facility] Comment on above: Performed By: #### C BCA, CMP #### [facility] ([id number]) [address], [address] [place] [address] Anion gap [Moles/Vol] 7 mmol/L Normal 5-15 [facility] Comment on above: Performed By: #### C BCA, CMP #### [facility] ([id number]) [address], [address] [place] [address] AST [Catalytic activity/Vol] 17 U/L Normal 0-41 [facility] Comment on above: Performed By: #### C BCA, CMP #### [facility] ([id number]) [address], [address] [place] [address] Bilirubin [Mass/Vol] 0.4 mg/dL Normal 0.3-1.[address] [facility] Comment on above: Performed By: #### C BCA, CMP #### [facility] ([id number]) [address], [address] [place] [address] Calcium [Mass/Vol] 9.2 mg/dL Normal 8.5-10.5 [facility] Comment on above: Performed By: #### C BCA, CMP #### [facility] ([id number]) [address], [address] [place] [address] Chloride [Moles/Vol] 105 mmol/L Normal 98-[address] [facility] Comment on above: Performed By: #### C BCA, CMP #### [facility] ([id number]) [address], [address] [place] [address] CO2 [Moles/Vol] 27 mmol/L Normal 22-32 [facility] Comment on above: Performed By: #### C BCA, CMP #### [facility] ([id number]) [address], [address] [place] [address] Creatinine [Mass/Vol] 0.92 mg/dL Normal 0.60-1.30 [facility] Comment on above: Result Comment: METH OD TRACEABLE TO IDMS STANDARD Performed By: #### C BCA, CMP #### [facility] ([id number]) [address], [address] [place] [address] eGFR (CKD-EPI) NON-RACE DEPENDENT >90 Normal >59 [facility] Comment on above: Result Comment: Reported eGFR is based on the CKD-EPI 2020 equation that does not use a race coefficient. Performed By: #### C BCA, CMP #### [facility] ([id number]) [address], [address] [place] [address] Glucose [Mass/Vol] 87 mg/dL Normal 65-99 [facility] Comment on above: Performed By: #### C BCA, CMP #### [facility] ([id number]) [address], [address] [place] [address] Potassium [Moles/Vol] 4.1 mmol/L Normal 3.5-5.0 [facility] Comment on above: Performed By: #### C BCA, CMP #### [facility] ([id number]) [address], [address] [place] [address] Protein [Mass/Vol] 6.8 g/dL Normal 6.0-8.0 [facility] Comment on above: Performed By: #### C BCA, CMP #### [facility] ([id number]) [address], [address] [place] [address] Sodium [Moles/Vol] 139 mmol/L Normal 134-146 [facility] Comment on above: Performed By: #### C BCA, CMP #### [facility] ([id number]) [address], [address] [place] [address] Urea nitrogen [Mass/Vol] 10 mg/dL Normal 5-23 [facility] Comment on above: Performed By: #### C BCA, CMP #### [facility] ([id number]) [address], [address] [place] [address] Celiac Disease Panelon 01-11 Gliadin Deam Pep IgA 1.5 U/mL Normal <7.0 [facility] Comment on above: Result Comment: CELIAC INTERPRETATION <7.0 Negative 7.0-10.0 Equivocal >10.0 Positive units: U/mL Performed By: #### C ELP #### [address] [place], [place] [address] Warehouse Insulation Worker: Cody Garcia MD Gliadin Deam Pep IgG <0.4 Normal <7.0 [facility] Comment on above: Result Comment: CELIAC INTERPRETATION <7.0 Negative 7.0-10.0 Equivocal >10.0 Positive units: U/mL Performed By: #### C ELP #### [address] [place], [place] [address] Warehouse Insulation Worker: Cody Garcia MD Tiss Transglutam IgA 0.4 U/mL Normal <7.0 [facility] Comment on above: Result Comment: CELIAC INTERPRETATION <7.0 Negative 7.0-10.0 Equivocal >10.0 Positive units: U/mL Performed By: #### C ELP #### [address] [place], [place] [address] Warehouse Insulation Worker: Cody Garcia MD Celiac Disease Panelon 01-09 IgA [Mass/Vol] 212 mg/dL Normal 70-400 [facility] Comment on above: Performed By: #### C ELP #### [address] [place], [place] [address] Warehouse Insulation Worker: Cody Garcia MD Alpha 1 antitrypsin Nephelom etry [Mass/Vol]on 10-09-2023 A1A Targeted Lia See Below Normal [facility] Comment on above: Result Comment: NOTE TEST RESULT FLAG UNIT REF.RANGE ------ Alpha-1 Antitrypsin Genotyping Interpretation See below Alpha-1 Antitrypsin Genotyping Laboratory Accession Number: [id number] Result: No Variant Detected in SERPINA1 (PI*MM) [...] two most common pathogenic variants: S (c.863A>T, p.Chw559Xwa, g.87468022), Z (c.1096G>A, p.Bmz632Iya, g.57351650), and the rarer variants: F (c.739C>T, p.Mbr463Vvi, g.19676671), I (c.187C>T, p.Azo42Cty, g.13741272). Limitations: This Laboratory Developed Test (LDT) is [...] developed and its performance characteristics determined by [facility] [place] ([facility]). It has not been cleared or approved by the FDA. -[facility] is regulated under CLIA as certified to perform high- complexity testing. This test is used for clinical purposes. It should not be regarded as investigational or for research. Testing and interpretation performed at [facility], [address] [place] [address]. CLIA Number: [id number] References: 1) Travon SHIELDS Tatianna G, Caroline [...] SJ, Rosanne AF. Molecular characterisation of three zytlq-9-lpxfzuuouvf deficiency variants: proteinase inhibitor (Pi) nullcardiff (Ueo253----Tmx); PiMmalton (Ela56----dptpeycg) and PiI (Nhl44----Dgm). Hum Maureen. 1989 May;84(1):55-8. 4) Tam WALTON and Travon SHIELDS. Clinical practice. Alpha1-antitrypsin deficiency. N Engl J Med. 2008Nov 27;[phone]. 5) Candelario [place], Mychal F, Inder SHIELDS. The significance of the F variant of rkxge-9-krmzptrohtf and unique case report of a PiFF homozygote. BMC Pulm Med. 2013Jan 09;14:132. 6) [place] RAMIREZ, Mike FRANKLIN, and Michael Cabezas. Alpha-1 Antitrypsin Deficiency. 2005Mar 31 [Updated 2017 June 23]. In: Emily RA, Colt MP, Taqueria TO, et al., editors. GeneReviews [Internet]. [place] [employer], [place]; 3941-0471. Available from: http://www.ncbi.nlm.nih.gov/books/WBS8678/ As reviewed by Henry Morgan, PhD, [facility] Test Performed by: [employer] [place] [address] Craft Demonstrator: Ilan SHAW #[id number] Performed By: #### 6 771-0 #### [facility] ([id number]) [address] [place] [address] #### 6771-0 #### [facility] ([id number]) [address] [place] [address] ALPHA 1 ANTITRYPSIN 165 mg/dL Normal 83-199 [facility] Comment on above: Performed By: #### 6 771-0 #### [facility] ([id number]) [address] [place] [address] #### 6771-0 #### [facility] ([id number]) [address] [place] [address] XR CHEST 2 VWSon 08-12-2023 XR CHEST 2 VWS XR CHEST 2 VWS Chest 2 views History: SOB (shortness of breath) Comparison: None Findings: Chest 2 views. Small left pleural effusion with left pleural thickening or scarring. Calcified left lung granuloma. Degenerative changes of the thoracic spine. Impression: No evident acute cardiopulmonary process. Finalized by Binta Herrera MD on 08/12/2023 9:20 AM Normal [facility] H PYLORI SCREENon 07-24-2023 H. pylori Org specific cx Ql (Shukri fld) Negative Normal NEG [facility] Comment on above: Performed By: #### 4 4015-6 #### [facility] ([id number]) [address] [place] [address] Surgical Pathologyon 024 Surgical Pathology Normal [facility] Comment on above: Result Comment: [facility] [employer] [facility] [address] [place] [address] Surgical Pathology Consultation Patient Name:ROBYN MCCULLOUGH:1970 (Age: 52)Gender:MTaken:4Reported:07/27/2023hysician(s):Binta Bateman D.O. ([phone])Copy To: Rec. #:[id number]: #[id number] Final Pathologic Diagnosis 1. Antrum biopsy: Mild chronic gastritis. Negative for helicobacter organisms on routine H&E examination. Negative for atypia or malignancy. 2. Sigmoid colon polyp: Hyperplastic polyp. 3. Rectal sigmoid junction x5: Hyperplastic polyps. Report Electronically Signed Out st07/27/2023Gayle Bruner MD Interpretation performed at [facility], [address] [place], [address], License number: [id number]. Clinical History Positive Cologuard. Gross Description 1. Received in formalin labeled MARIELENA, antrum BX are two light chapman soft tissue bits, 0.2 cm each. The specimen is filtered and entirely submitted in a single cassette. (1, ns, [id number],m8) DM. 2. Received in formalin labeled MARIELENA, sigmoid polyp is a light chapman soft tissue bit, 0.2 cm. The specimen is filtered and entirely submitted in a single cassette. (1, ns, [id number],m8) DM. 3. Received in formalin labeled MARIELENA, rectal sigmoid junction X5 are six light chapman soft tissue bits, 0.1-0.5 cm. The specimen is filtered and entirely submitted in a single cassette. (1, ns, [id number],m8) DM. dm/07/25/2023EAK Specimen(s) Received 1: Antrum biopsy 2: Sigmoid colon polyp 3: Rectal sigmoid junction x5 Fee Codes(s): 1; 42462 2; 83259 3; 12162 COVID Quick Testingon 2022 Result Positive [facility] Other COVID Quick Testingon 2020 Result Negative [facility] Other Vital Signs Date Time Vital Sign Value Performing Clinician Facility 07-18-2023 10:03-0500 Body height 175.3 cm Pmh 1 [facility] 07-18-2023 10:03-0500 Body mass index (BMI) [Ratio] 28.06 kg/m2 [facility] 07-18-2023 10:03-0500 Body weight 86.18 kg Pmh 1 [facility] Lalina [facility] 06-23-2023 12:54-0500 Body height 175.3 cm Verito Peters NEWS CLERK-MEDICAL ADMINISTRATIVE ASSISTANT [facility] 06-23-2023 12:54-0500 Body mass index (BMI) [Ratio] 27.35 kg/m2 Verito Peters NEWS CLERK-MEDICAL ADMINISTRATIVE ASSISTANT [facility] 06-23-2023 12:54-0500 Body weight 84.01 kg Verito Peters NEWS CLERK-MEDICAL ADMINISTRATIVE ASSISTANT [facility] 06-23-2023 12:54-0500 Diastolic blood pressure 63 mm[Hg] Verito Peters NEWS CLERK-MEDICAL ADMINISTRATIVE ASSISTANT [facility] 06-23-2023 12:54-0500 Systolic blood pressure 101 mm[Hg] Verito Peters NEWS CLERK-MEDICAL ADMINISTRATIVE ASSISTANT [facility] 08-29-2022 14:35-0400 Body height 175.26 cm Lesia Dickinson Other [facility] Other 08-29-2022 14:35-0400 Body mass index (BMI) [Ratio] 24.22 kg/m2 Lesia Dickinson Other [facility] Other 08-29-2022 14:35-0400 Body temperature 98.3 [degF] Lesia Dickinson Other [facility] Other 08-29-2022 14:35-0400 Body weight 74.39 kg Lesia Dickinson Other [facility] Other 08-29-2022 14:35-0400 Respiratory rate 18 /min Lesia Dickinson Other [facility] Other 08-29-2022 14:35-0400 SaO2% (BldA) [Mass fraction] 99 % Lesia Teena Other [facility] Other 03-14-2021 12:15-0400 Body height 175.26 cm Nancy Messina Other [facility] Other 03-14-2021 12:15-0400 Body mass index (BMI) [Ratio] 26.58 kg/m2 Nancy Messina Other [facility] Other 03-14-2021 12:15-0400 Body temperature 97.5 [degF] Nancy Messina Other [facility] Other 03-14-2021 12:15-0400 Body weight 81.65 kg Nancy Messina Other [facility] Other 03-14-2021 12:15-0400 SaO2% (BldA) [Mass fraction] 98 % Nancy Messina Other [facility] Other Encounters Encounter Date Encounter Type Care Provider Facility Start: 06-25-2024 End: 06-25-2024 ambulatory [facility] Start: 05-20-2024 End: 05-20-2024 ambulatory [facility] Start: 05-06-2024 End: 05-06-2024 Telephone encounter Amada Kenyon Therese [facility]icians Pulmonary/Sleep Medicine Start: 04-22-2024 End: 04-22-2024 Orders Only Les Saucedo NEWS CLERK-TRANSIT PLANNER Work Phone: [facility]ONLY [facility] Comment on above: Diarrhea, unspecifie d Start: 04-09-2024 End: 04-09-2024 ambulatory PAYAL Justin ELIZABETH [facility] Start: 04-08-2024 End: 04-08-2024 ambulatory PAYAL Justin ELIZABETH [facility] Start: 01-15-2024 End: 01-15-2024 ambulatory LES SAUCEDO [facility] Start: 01-10-2024 End: 01-10-2024 ambulatory PAYAL JOHNSON [facility] Start: 01-10-2024 End: 01-10-2024 Subsequent hospital visit by physician Les Saucedo NEWS CLERK - WEEKEND RECEPTIONIST Work Phone: [facility] Comment on above: Postprandial diarrhe a Start: 10-10-2023 End: 11-04-2023 ambulatory [facility] Start: 10-09-2023 End: 10-09-2023 ambulatory [facility] Start: 10-09-2023 End: 10-09-2023 ambulatory [facility] Start: 09-04-2023 End: 10-04-2023 ambulatory [facility] Start: 08-28-2023 End: 08-28-2023 ambulatory [facility] Start: 08-16-2023 End: 09-04-2023 ambulatory [facility] Start: 08-11-2023 Telephone encounter Jenna Myrick L[facility] Start: 08-11-2023 End: 08-11-2023 ambulatory [facility] Start: 07-28-2023 Telephone encounter Ann Marie Rodriguez [facility] General Surgery Start: 07-25-2023 End: 07-25-2023 Evaluation and management of inpatient MADI Ariadna RAZO [facility] Start: 07-24-2023 End: 07-25-2023 Evaluation and management of inpatient BINTA BATEMAN [facility] Start: 07-18-2023 End: 07-18-2023 ambulatory [facility] Pat Phone Call Provider 1 [facility] - Pre Admit Start: 06-23-2023 End: 06-23-2023 Office outpatient new 30 minutes Verito Saleh Peters NEWS CLERK-MEDICAL ADMINISTRATIVE ASSISTANT Work Phone: [facility] General Surgery Comment on above: Positive colorectal cancer screening using Cologuard test (Primary Dx) Start: 06-23-2023 End: 06-23-2023 ambulatory VERITOISAAC PETERS [facility] Start: 08-29-2022 End: 08-29-2022 ambulatory Lesia Dickinson Other [facility] Other Start: 08-29-2022 Office outpatient vi sit 15 minutes Lesia Dickinson [facility] Start: 03-14-2021 Office outpatient vi sit 15 minutes Nancy Messina [facility] Procedures Date Procedure Procedure Detail Performing Clinician Start: 01-10-2024 Assay of gammaglobul in iga igd igg igm each Payal Johnson NEWS CLERK - MEDICAL ADMINISTRATIVE ASSISTANT Work Phone: Start: 07-24-2023 Colonoscopy Ann Marie crane CMA Plan of Treatment Date Care Activity Detail Author Start: 07-24-2033 Screening for malignant neoplasm of colon Colonoscopy [facility] Start: 07-21-2032 DTaP,Tdap and Td Vaccines (2 - Td or Tdap) DTaP,Tdap and Td Vaccines (2 - Td or Tdap) [facility] Start: 07-21-2032 DTaP/Tdap/Td vaccine (2 - Td or Tdap) DTaP/Tdap/Td vaccine (2 - Td or Tdap) [facility] Start: 05-28-2026 Screening for malignant neoplasm of colon [facility] Start: 10-08-2024 Adult BMI Screening Adult BMI Screening [facility] Start: 10-08-2024 Tobacco Screening Tobacco Screening [facility] Start: 07-24-2024 Adult BMI Screening Adult BMI Screening [facility] Start: 07-24-2024 Tobacco Screening Tobacco Screening [facility] Start: 07-18-2024 Adult BMI Screening Adult BMI Screening [facility] Start: 07-09-2024 Tobacco Screening Tobacco Screening [facility] Start: 06-23-2024 Adult BMI Screening Adult BMI Screening [facility] Start: 06-23-2024 Tobacco Screening Tobacco Screening [facility] Start: 05-20-2024 End: 05-20-2024 Patient encounter procedure 05/20/2024 10:45 AM EST Office Visit [facility] [address] [place] [id number] Mark Anthony Hansen MD [address] [place], [place] [id number] [facility] Start: 04-22-2024 End: [...] procedure 02/21/2024 11:00 AM EDT Office Visit [facility] [address] [place], [place] [id number] Payal Johnson, NEWS CLERK - MEDICAL ADMINISTRATIVE ASSISTANT [address] [place] [address] [facility] Comment on above: [facility] Start: 02-04-2024 Influenza vaccination Influenza Vaccine [facility] Start: 01-04-2024 Influenza vaccination Flu vaccine (#1) MARY SOTO [facility] Start: 10-09-2023 End: 10-09-2023 Patient encounter procedure 10/09/2023 9:00 AM EDT Office Visit [facility] [address] [place] [phone] Mark Anthony Hansen MD [address] [place] [address] [facility] Start: 08-21-2023 End: 08-21-2023 Patient encounter procedure 08/21/2023 2:15 PM EDT Appointment [facility] - MRI Imaging [address] [place] [phone] Abraham Hernandez DO [address] [place] [address] [facility] - MRI Imaging Start: 08-15-2023 End: 08-15-2023 Patient encounter procedure 08/15/2023 8:00 AM EDT Appointment [facility] - Pulmonary Function [address] [place] [phone] Mark Anthony Hansen MD [address], [address] [place] [address] [facility] - Pulmonary Function Start: 07-24-2023 End: 07-24-2023 Admission to same day surgery center 07/24/2023 11:00 AM EST - 07/24/2023 11:45 AM EST Surgery [facility] - Surgery [address] [place] [address] Binta Bateman, [address] [place], [place] [phone] ESOPHAGOGASTRODUODENOSCOPY DIAGNOSTIC [66071 (CPT )] [facility] - Surgery Comment on above: ESOPHAGOGASTRODUODENOSCOPY DIAGNOSTIC [4 3235 (CPT )] Start: 07-24-2023 End: 07-24-2023 Anesthesia consultation 07/24/2023 11:00 AM EST Anesthesia Event [facility] Surgery [address] [place] [address] Madi Razo, DO [address] [place] [address] [facility] Start: 07-24-2023 End: 07-24-2023 Colonoscopy flx dx w/collj spec when pfrmd COLONOSCOPY DIAGNOSTIC / SCREENING positive cologuard 07/24/2023 11:00 AM EST [facility] Start: 07-24-2023 End: 07-24-2023 Esophagogastroduodenoscopy transoral diagnostic ESOPHAGOGASTRODUODENOSCOPY DIAGNOSTIC positive cologuard 07/24/2023 11:00 AM EST [facility] Start: 07-24-2023 Subsequent hospital visit by physician 07/24/2023 11:00 AM EST Hospital Encounter [facility] Surgery [address] [place] [address] [place] [address] [place] [id number] [facility] Start: 07-18-2023 End: 07-18-2023 ambulatory 07/18/2023 4:00 PM EST Support Visit [facility] - Pre Admit [address] [place] [address] [facility] Pre Admit Start: 02-03-2023 Influenza vaccination Influenza Vaccine [facility] Start: 2022 Administration of varicella zoster vaccine Zoster (Shingles) Vaccine (1 of 2) [facility] Start: 2022 Shingles vaccine (1 of 2) Shingles vaccine (1 of 2) [facility] Start: 2017 Screening for malignant neoplasm of colon [facility] Start: 2012 Lipid panel Lipids [facility] Start: 09-07-2007 Diabetes screen Diabetes screen [facility] Start: 1990 Adult BMI Follow Up Plan Adult BMI Follow Up Plan [facility] Start: 1990 Hepatitis C screening Hepatitis C screen [facility] Start: 09-07-1987 HIV screening HIV screen [facility] Start: 1984 Depression Screen Depression Screen [facility] Start: 1984 Depression Screening Depression Screening [facility] Start: 03-08-1973 COVID-19 Vaccine (#1) COVID-19 Vaccine (#1) [facility] [employer] Start: 1972 Hepatitis B vaccine (1 of 3 - 3-dose series) Hepatitis B vaccine (1 of 3 - 3-dose series) [facility] Start: 1972 Tobacco Counseling Tobacco Counseling [facility] Celiac Disease Panel Celiac Dise ase Panel Lab Routine Postprandial diarrhea 01/10/2024 3:35 PM EDT [facility] [employer] End: 06-23-2024 EGD / Colonoscopy EGD / Colonoscopy GI Routine Positive colorectal cancer screening using Cologuard test 1 Occurrences starting 06/23/2023 until 06/23/2024 [facility] Work Phone: Comment on above: 1 Occurrences starting 06/23/2023 until 06/23/2024 Immunizations Immunization Date Immunization Notes Care Provider Sandra preston 07-21-2022 tetanus toxoid, redu michael diphtheria toxoid, and acellular pertussis vaccine, adsorbed Verito Peters 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 2022 Private Health Insurance [facility] [id number] 2022-Present [phone] [address] [place] [address] [id number] 2022 Private Health Insurance [id number] 1972 Unknown [id number] 2.16840.1.038885.3.579. 2.174 1972 Unknown [id number] 2.16840.1.091501.3.579. 2.1286 1972 Unknown [id number] 2.16840.1.519119.3.579. 2.1285 1972 Unknown [id number] 2.16840.1.170414.3.579. 2.1286 1972 Unknown [id number] 2.16840.1.189097.3.579. 2.1285 1972 Unknown [id number] 2.16840.1.280810.3.579. 2.6 1972 Unknown [id number] 2.16840.1.165569.3.579. 2.128 1972 Unknown [id number] 2.16.840.1.689198.3.579. 2.1286 1972 Unknown [id number] 2.16840.1.852746.3.579. 2.1286 1972 Unknown [id number] 2.16840.1.942663.3.579. 2.1286 1972 Unknown [id number] 2.16840.1.005628.3.579. 2.1286 1972 Unknown [id number] 2.16840.1.538831.3.579. 2.1286 1972 Unknown [id number] 2.16.840.1.375234.3.579. 2.1286 1972 Unknown [id number] 2.16.840.1.434065.3.579. 2.1286 1972 Unknown [id number] 2.16.840.1.107531.3.579. 2.6 1972 Unknown [id number] 2.16.840.1.549182.3.579. 2.1286 1972 Unknown [id number] 2.16.840.1.437029.3.579. 2.1286 1972 Unknown [id number] 2.16.840.1.848203.3.579. 2.6 1972 Unknown [id number] 2.16.840.1.222370.3.579. 2.1285 1972 Unknown [id number] 2.16.840.1.611911.3.579. 2.1286 Unknown [id number] 2.16.840.1.975841.19 Social History Date Type Detail Facility Start: 07-16-2020 End: 06-23-2023 Sex Assigned At [facility] Start: 06-05-1988 End: 10-09-2023 Tobacco smoking status NHIS Smokes tobacco daily [facility] Start: 06-05-1988 History of tobacco use Cigarette Smo ker [facility] Start: 07-16-2020 End: 06-23-2023 Cigarettes smoked current (pack per day) - Reported 0.2 [facility] Start: 06-23-2023 End: 07-18-2023 Tobacco use and exposure Smokeless tobacco non-user [facility] Start: 06-23-2023 End: 10-09-2023 Alcohol intake Ex-drinker (finding) [facility] Housing Instability Unknown [facility] Start: 06-23-2023 Alcohol Comment [facility] Start: 1970 Sex Assigned At Male P [facility] Start: 06-03-2023 Gender identity Identifies as male gender (finding) [facility] Start: 06-03-2023 Sexual orientation Heterosexual (carola dailey) [facility] Start: 10-09-2023 Tobacco use and exposure User of smokeless tobacco [facility] History of tobacco use Chews Tobacco [facility] Start: 01-08-2015 Sex Male (finding) [facility] Tobacco smoking stat NHIS Tobacco smoking consumption unknown [facility] Start: 1970 Sex Assigned At Not on file B [facility] Clinical Notes 03-14-2021 to 05-06-2024 Telephone Encounter - SETH Lin - 05/06/2024 9:00 AM ESTTelephone Encounter - Mark Anthony Hansen MD - 05/06/2024 9:00 AM ESTTelephone Encounter - SETH Lin - 05/06/2024 9:00 AM EST Note Date & Type Note Facility 05-06-2024 Miscellaneous Notes Patient sent [employer] message requesting an appointment stating: Breathing is worse, coughing and can not do the inhaler without coughing. Bakery Manager called patient and patient stated that his [...] it does not help) Allergies: NKA Pharmacy: [facility] [address] [place] [address] Patient last seen 10/12/2023 for: Shortness of breath Patient does have an appointment with his PCP today, patient is also scheduled for a follow up with MT on 06/24/2024. Recommend to keep the appointment with the PCP today and follow PCP recommendations. He can follow up with us on 05/20 at 10:45 a.m.. Bakery Manager called patient and informed him to keep his appointment with his PCP, automobile and property underwriter also informed patient that per MT, he would like patient to come in on 05/20/2024 at 10:45am. Patient confirmed that he can come in on 05/20/2024 at 10:45am. documented in this encounter [facility] 05-06-2024 Telephone encounter Note Patient sent [employer] message requesting an appointment stating: Breathing is worse, coughing and can not do the inhaler without coughing. Bakery Manager called patient and patient stated that his [...] it does not help) Allergies: NKA Pharmacy: [facility] [address] [place] [address] Patient last seen 10/12/2023 for: Shortness of breath Patient does have an appointment with his PCP today, patient is also scheduled for a follow up with MT on 06/24/2024. [facility] 05-06-2024 Telephone encounter Note Recommend to keep the appointment with the PCP today and follow PCP recommendations. He can follow up with us on 05/20 at 10:45 a.m.. [facility] 05-06-2024 Telephone encounter Note Bakery Manager called patient and informed him to keep his appointment with his PCP, automobile and property underwriter also informed patient that per MT, he would like patient to come in on 05/20/2024 at 10:45am. Patient confirmed that he can come in on 05/20/2024 at 10:45am. [facility] 08-11-2023 Miscellaneous Notes Complete PFT and chest x ray placed per protocol. documented in this encounter [facility] 08-11-2023 Telephone encounter Note Complete PFT and chest x ray placed per protocol. [facility] 07-28-2023 Miscellaneous Notes ----- Message from [...] put into chart. documented in this encounter [facility] 07-28-2023 Telephone encounter Note ----- Message [...] instead of 5 years. Thanks, Dr. Jaimes [facility] Jack Erwin 07-28-2023 Telephone encounter Note Spoke with patient regarding pathology results. Patient verbally understood with no further questions. Informed patient of Dr. Bateman's recommendations and recall will be put into chart. [facility] Jack Erwin 07-18-2023 Nurse Note Preoperative Education Checklist- General Surgery date: 07/24/23 Surgery time: 11a Arrival time: 9a 1. Bring a photo ID and your insurance card with you the day of surgery. You will check in at the main lobby of the [facility]- registration desk is straight ahead as soon as you walk in. Tell them you are here for surgery. 2. If you have a Living Will/Durable Power of Senior Product Manager for Health Care that is not on [...] after you have bathed. 5. NO nail uzbek/acrylic on at least one finger. If you are having a hand, wrist or foot surgery then all nail uzbek and artificial/acrylic nails must be removed from [...] please call the Preadmission Testing office at [phone], Mon.-Fri. 7 a.m.-3 p.m. Leave a voicemail if needed. Pre-Surgery Instructions: Medication Instructions ibuprofen (MOTRIN) 800 mg tablet Stop taking 1 week prior to procedure [facility] 07-18-2023 Miscellaneous Notes Preoperative Education Checklist- General Surgery date: 07/24/23 Surgery time: 11a Arrival time: 9a 1. Bring a photo ID and your insurance card with you the day of surgery. You will check in at the main lobby of the [facility]- registration desk is straight ahead as soon as you walk in. Tell them you are here for surgery. 2. If you have a Living Will/Durable Power of Senior Product Manager for Health Care that is not on [...] after you have bathed. 5. NO nail uzbek/acrylic on at least one finger. If you are having a hand, wrist or foot surgery then all nail uzbek and artificial/acrylic nails must be removed from [...] please call the Preadmission Testing office at [phone], Mon.-Fri. 7 a.m.-3 p.m. Leave a voicemail if needed. Pre-Surgery Instructions: Medication Instructions ibuprofen (MOTRIN) 800 mg tablet Stop taking 1 week prior to procedure documented in this encounter [facility] 06-23-2023 History of Presen t illness [...] the morning., Disp: , Rfl: peg 3350-sod sulf,yqle-zel-vis 178.7-7.3-0.5 gram recon soln, Take 1 kit [...] patient/family/caregiver Referring and communicating with other health healthcare market consultant Positive colorectal cancer screening using Cologuard test [R19.5] MARIO MURPHY [facility] General Surgery [place] This note was created with the assistance of a speech recognition program. While intending to generate a timely document that accurately reflects the content of the visit, no guarantee can be provided that every grammatical or spelling mistake has been or will be identified or corrected. Thank you for your understanding. MARIO Murphy 06/23/23 1329 documented in this encounter [facility] 08-29-2022 Evaluation note Encounter Date Diagnosis [...] (suspected) exposure to covid-19 (ICD-10 - Z20.822) [employer] Other 10-10-2021 Evaluation note* Encounter Date Diagnosis [...] Patient care instructions given in writting by [facility] Care At Home document. [facility] Other Evaluation note* Diagnosis Positive colorectal cancer screening using Cologuard test- Primary documented in this encounter [facility]* Diagnosis Diarrhea, unspecified documented in this encounter [facility]* Diagnosis Postprandial diarrhea Diarrhea [facility] filed[facility]ed in this encounter [facility] SystemInstructionsNot on filedocumented in this encounter [facility] SystemInstructionsNot on filedocumented in this encounter [facility] SystemInstructionsNot on filedocumented in this encounter [facility] SystemInstructionsNot on filedocumented in this encounter [facility] Summary Purpose Family History No Family History Records FoundNo Family History Records FoundNo Family History Records Found Advance Directives No Advanced Directives Records FoundNo Advanced Directives Records FoundNo Advanced Directives Records Found Additional Source Comments REASON FOR VISIT (unrecogniz ed section and content) Reason Comments POSITIVE COLOGUARD REFERRED BY NILA JOLLEY Care Teams (unrecognized sec tion and content) Foam Molder Relationship Specialty Start Date End Date Services, [facility] [address] [place] PCP - General Family Medicine 08/28/22 Foam Molder Relationship Specialty Start Date End Date Services, [facility] [address] [place] PCP - General Family Medicine 08/28/22 Foam Molder Relationship Specialty Start Date End Date Services, [facility] [address] [place] PCP - General Family Medicine 08/28/22 Foam Molder Relationship Specialty Start Date End Date [facility] [address] [place] PCP - General Family Medicine 08/28/22 Foam Molder Relationship Specialty Start Date End Date Services, [facility] [address] [place] PCP - General Family Medicine 08/28/22 Foam Molder Relationship Specialty Start Date End Date [facility] [address] [place] PCP - General [facility] 08/28/22 Foam Molder Relationship Specialty Start Date End Date Les Saucedo APRN - JUAN [address] [facility] [place] [address] PCP - General Nurse Practitioner 01/04/24 (unrecognized sect ion and content) No Status Records FoundNo Status Records FoundNo Status Records Found INFORMATION SOURCE (unrecogn ized section and content) DATE CREATED AUTHOR 01/13/2024 [facility] DATE CREATED AUTHOR AUTHOR'S ORGANIZ ATION 05/22/2024 [facility] DATE CREATED AUTHOR AUTHOR'S ORGANIZ ATION 06/26/2024 [facility] FOR RECORDS PERTAINING TO PATIENTS WHO ARE [...] BE BASED ON THE PRIMARY CLINICAL RECORDS. [facility]. provides no warranty or guarantee of the accuracy or completeness of information in this document.
--- NOTE | 2024-07-14 15:32 | XR_ITS ---
The [address] [address] Patient Name: ROBYN PEGUERO MRN: [id number] date: 1970 Sex: M Assigned Patient Location: ER Current Patient Location: Accession/Order Number: [id number] Exam Date: 07/14/2024 16:00 Report Date: 07/14/2024 18:47 At the request of: HORACE CAAL Procedure: XR chest 1V PORTABLE CHEST X-RAY. CLINICAL HISTORY: cough and fever COMPARISON: None. TECHNIQUE: Single AP portable chest radiograph. FINDINGS: TUBES AND LINES: None. LUNGS: There are mild bilateral reticulonodular opacities. PLEURA: No effusions or pneumothorax. HEART AND MEDIASTINUM: Within normal limits for portable technique. OSSEOUS STRUCTURES: No acute abnormality. XR/XR chest 1V IMPRESSION: Mild bilateral reticulonodular opacities which may be infectious or inflammatory. Electronically authenticated by: WON REESE Date: 07/14/2024 18:47
--- NOTE | 2024-07-14 15:39 | PC.NURSE ---
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
[2024-07-14] MEDS: ONDANSETRON PF 4 MG/2 ML VIAL IV (15:54)
[2024-07-14] MEDS: ACETAMINOPHEN 325 MG TABLET 650 MG PO (15:54)
[2024-07-14] MEDS: 0.9 % SODIUM CHLORIDE 1,000 ML 1000 ML IV (15:54)
[2024-07-14] MEDS: METHYLPREDNISOLONE SOD SUCC PF 125 MG/2 ML VIAL IVP (16:11)
[2024-07-14 16:16] LABS: Basophils Percent Auto 0.2 % (0.2-2.0); Eosinophils Percent Auto 0.1 % (0.9-7.0); Hematocrit 42.4 % (42.0-54.0); Hemoglobin 14.7 g/dL (14.0-18.0); Immature Granulocytes Abs Auto 0.04 10^3/uL (0.00-0.03); Immature Granulocytes Pct Auto 0.4 % (0.0-0.5); Lymphocytes Absolute Auto 0.4 10^3/uL (1.2-3.8); Lymphocytes Percent Auto 4.2 % (20.5-60.0); Mean Corpuscular HGB Conc 34.7 g/dL (29.9-35.2); Mean Corpuscular Hemoglobin 31.7 pg (25.9-34.0); Mean Corpuscular Volume 91.6 fL (80.0-94.0); Mean Platelet Volume 10.7 fL (9.5-13.5); Monocytes Absolute Auto 0.8 10^3/uL (0.3-0.8); Monocytes Percent Auto 8.7 % (1.7-12.0); Neutrophils Absolute Auto 7.8 10^3/uL (1.4-6.5); Neutrophils Percent Auto 86.4 % (43.0-75.0); Platelet Count 162 10^3/uL (150-450); Red Blood Count 4.63 10^6/uL (4.70-6.10); Red Cell Distribution Width 12.4 % (11.0-15.0)
[2024-07-14 16:33] LABS: Alanine Aminotransferase 30 U/L (16-63); Albumin Globulin Ratio 1.1; Albumin Level 3.6 g/dL (3.4-5.0); Alkaline Phosphatase 75 U/L (46-116); Anion Gap 14.8; Aspartate Amino Transferase 25 U/L (15-37); BUN Creatinine Ratio 8.5; Bilirubin Total 0.3 mg/dL (0.2-1.0); Calcium 8.7 mg/dL (8.5-10.1); Carbon Dioxide 24.7 mmol/L (21.0-32.0); Chloride 101 mmol/L (98-107); Estimated GFR (African America >60 (>=60 mL/min/1.73m^2); Estimated GFR (Non-African Ame 58 (>=60 mL/min/1.73m^2); Globulin 3.2 g/dL; Glucose 114 mg/dL (74-106); Potassium 3.5 mmol/L (3.5-5.1); Sodium 137 mmol/L (136-145); Total Protein 6.8 g/dL (6.4-8.2)
[2024-07-14] MEDS: IPRATROPIUM/ALBUTEROL SULFATE 3 ML AMPUL.NEB IH (16:36)
[2024-07-14 17:03] LABS: Internal Control Within Normal Limits; SARS-CoV-2 Ag NEGATIVE (NEGATIVE)
--- NOTE | 2024-07-14 17:37 | ED_ITS ---
HPI - SOB/Dyspnea General Chief Complaint: Shortness of Breath/Dyspnea Stated Complaint: SOB, HEADACHE, FEVER Time Seen by Provider: 07/14/24 15:31 Source: patient and family Mode of arrival: walk-in Limitations: no limitations History of Present Illness HPI Narrative: The patient was evaluated yesterday for exposure to his family members who had flu, he was already diagnosed with COPD exacerbation with a cough he did not have any difficulty breathing yesterday he was concerned more of a thrush in his mouth, today the patient is coming concerning of feeling hot and having a headache in addition to a nausea and vomiting. Patient had already Zofran at home but he came here because he is having some difficulty breathing as well No chest pain no abdominal pain Related Data Home Medications ?Medication ?Instructions ?Recorded ?Confirmed albuterol sulfate 90 mcg/actuation 2 puff inhalation Q6H PRN 07/14/24 07/14/24 aerosol inhaler shortness of breath or wheezing Previous Rx's ?Medication ?Instructions ?Recorded prednisone 20 mg tablet 40 mg (2 x 20 mg) PO DAILY 5 days 07/14/24 #10 tabs Allergies Allergy/AdvReac Type Severity Reaction Status Date / Time No Known Drug Allergies Allergy Verified 07/13/24 17:37 Review of Systems ROS Status of ROS 10 or more systems reviewed and unremark able except as noted in history and below Exam Narrative Exam Narrative: Nurses notes and vital signs reviewed and patient is not hypoxic. General: Well-appearing and in no apparent distress. Skin: Warm, dry, no pallor noted. No rash. Head: Normocephalic, atraumatic. Neck: Supple, non-tender. Eye: Pupils are equal, round and EOMI. No scleral icterus. Ears, Nose, Mouth, and Throat: TM are clear, no nasal mucosal hypertrophy. Oral mucosa is moist, no posterior oropharynx erythema, uvula is mid-line Cardiovascular: Regular Rate and Rhythm without murmur, gallop or rub. Respiratory: Bilateral expiratory lung wheezes Back: No midline thoracic or lumbar vertebral tenderness. No CVA tenderness Musculoskeletal: normal ROM, no calf or popliteal tenderness, no lower extremity edema/swelling GI: Abdomen is soft, non-distended. Normal bowel sounds. No masses appreciated. No tenderness to palpation. No rebound, guarding, or rigidity noted. Neurological: A&O x4. No cranial nerve dysfunction observed. No truncal ataxia. Moves all extremities. Sensation intact. Psychiatric: Cooperative and interactive. Normal mood and affect. Constitutional Vital Signs, click to edit/add: Last Vital Signs Temp 99.4 F 07/14/24 16:46 Pulse 98 H 07/14/24 15:22 Resp 22 H 07/14/24 15:22 BP 112/57 07/14/24 17:43 Pulse Ox 95 07/14/24 17:30 O2 Del Method Room Air 07/14/24 15:22 Course Vital Signs Vital signs: Vital Signs Temperature 101.7 F H 07/14/24 15:22 Pulse Rate 98 H 07/14/24 15:22 Respiratory Rate 22 H 07/14/24 15:22 Blood Pressure 123/63 07/14/24 15:22 Pulse Oximetry 98 07/14/24 15:22 Oxygen Delivery Method Room Air 07/14/24 15:22 Temperature 99.4 F 07/14/24 16:46 Pulse Rate 98 H 07/14/24 15:22 Respiratory Rate 22 H 07/14/24 15:22 Blood Pressure 112/57 07/14/24 17:43 Pulse Oximetry 95 07/14/24 17:30 Oxygen Delivery Method Room Air 07/14/24 15:22 MDM - SOB/Dyspnea MDM Narrative Medical decision making narrative: The patient CBC and chemistry showed no acute pathology He already had a fever and his COVID test was negative his presentation is mostly secondary to flu The patient was treated with Tylenol in addition to breathing treatment as well as Zofran and Solu-Medrol after which she was feeling much better Chest x-ray shows picture of possible viral infection Patient already covered with doxycycline for possible pneumonia as well The patient is to follow up with primary care physician in next 2-3 days or to return to the emergency department should any of the signs or symptoms worsen or new symptoms develop. The patient agrees with the following Diagnosis and Treatment plan and the patient will be discharged home. Lab Data Labs: Lab Results 07/14/24 07/14/24 Range/Units 15:49 16:45 WBC 9.0 (4.0-11.0) 10^3/uL RBC 4.63 L (4.70-6.10) 10^6/uL Hgb 14.7 (14.0-18.0) g/dL Hct 42.4 (42.0-54.0) % MCV 91.6 (80.0-94.0) fL MCH 31.7 (25.9-34.0) pg MCHC 34.7 (29.9-35.2) g/dL RDW 12.4 (11.0-15.0) % Plt Count 162 (150-450) 10^3/uL MPV 10.7 (9.5-13.5) fL Neut % (Auto) 86.4 H (43.0-75.0) % Lymph % (Auto) 4.2 L (20.5-60.0) % Bladen % (Auto) 8.7 (1.7-12.0) % Eos % (Auto) 0.1 L (0.9-7.0) % Baso % (Auto) 0.2 (0.2-2.0) % Neut # (Auto) 7.8 H (1.4-6.5) 10^3/uL Lymph # (Auto) 0.4 L (1.2-3.8) 10^3/uL Bladen # (Auto) 0.8 (0.3-0.8) 10^3/uL Eos # (Auto) 0.0 (0.0-0.7) 10^3/uL Baso # (Auto) 0.0 (0.0-0.1) 10^3/uL Abs Immat Gran (auto) 0.04 H (0.00-0.03) 10^3/uL Imm/Tot Granulo (auto) 0.4 (0.0-0.5) % Sodium 137 (136-145) mmol/L Potassium 3.5 (3.5-5.1) mmol/L Chloride 101 (98-107) mmol/L Carbon Dioxide 24.7 (21.0-32.0) mmol/L Anion Gap 14.8 BUN 11.0 (7.0-18.0) mg/dL Creatinine 1.30 (0.70-1.30) mg/dL Est GFR ( Amer) >60 (>=60 mL/min/1.73m^2) Est GFR (Non-Af Amer) 58 L (>=60 mL/min/1.73m^2) BUN/Creatinine Ratio 8.5 Glucose 114 H (74-106) mg/dL Calcium 8.7 (8.5-10.1) mg/dL Total Bilirubin 0.3 (0.2-1.0) mg/dL AST 25 (15-37) U/L ALT 30 (16-63) U/L Alkaline Phosphatase 75 (46-116) U/L Total Protein 6.8 (6.4-8.2) g/dL Albumin 3.6 (3.4-5.0) g/dL Globulin 3.2 g/dL Albumin/Globulin Ratio 1.1 SARS-CoV-2 Ag (CV2AG) Negative (NEGATIVE) Discharge Plan Discharge Chief Complaint: Shortness of Breath/Dyspnea Clinical Impression: COPD exacerbation, Bronchitis, Acute viral syndrome Patient Disposition: Home, Self-Care Time of Disposition Decision: 17:36 Condition: Good Mode of Transportation: Private Vehicle Prescriptions / Home Meds: New prednisone 20 mg tablet 40 mg PO DAILY 5 Days Qty: 10 0RF No Action albuterol sulfate 90 mcg/actuation HFA aerosol inhaler 2 puff INHALATION Q6H PRN (Reason: shortness of breath or wheezing) Print Language: Mongolian Instructions: COPD (Chronic Obstructive Pulmonary Disease) (DC), Viral Syndrome (ED) Referrals: Physician,Non-Staff, [Physician] - 1 week Discharge Date/Time: 07/14/24 17:45
== END 2024-07-14 17:45 | disposition home or self-care (01) ==
PROVIDERS: Emergency Provider Emergency Medicine; Family Provider Family Medicine
DX: B34.9 Viral infection, unspecified (principal); J44.1 Chronic obstructive pulmonary disease with (acute) exacerbation; R50.9 Fever, unspecified
CPT/HCPCS: 36415; 71045; 80053; 85025; 87811; 94640; 96361; 96374; 96375; 99285; J2405; J2919

== ENCOUNTER 2024-10-12 05:58 | Emergency (ER) | payer OTHER, SELFPAY ==
--- OUTSIDE RECORDS SUMMARY | 2024-10-12 06:05 | XMS_ITS | CCD ---
Author Organization [facility] CliniSynj Care Team Providers Care Feed Project Engineer Name Role Phone Nancy Messina Unavailable TeenaLesia moya Unavailable PAYLA JOHNSON Referring Unavailable SHERYL, [facility] Care Unavailable TALEB, MARK ANTHONY Attending Unavailable TALEB, MOHAMMAD Referring Unavailable SERVICES, [facility] Unava ilable SHAMMO, NILA Referring Unavailable SERVICES, [facility] Unava ilable TALEB, MOHAMMAD Attending Unavailable TALEB, MOHAMMAD Referring Unavailable SERVICES, [facility] Unava ilable SHAMMO, NILA Referring Unavailable SERVICES, [facility] Unava ilable TALEB, MOHAMMAD Referring Unavailable SERVICES, [facility] Unava ilable SHAMMO, NILA Referring Unavailable SERVICES, [facility] Unava ilable SERVICES, [facility] Unava ilable BINTA BATEMAN Admitting Unavailable GRNILESH, BINTA Attending Unavailable FRANSICO, BINTA Referring Unavailable SERVICES, [facility] Unava ilable BINTA BATEMAN Attending Unavailable FRANSICO, BINTA Referring Unavailable SERVICES, [facility] Unava ilable LES SAUCEDO Referring Unavailable SERVICES, [facility] Unava ilable PAYAL JOHNSON Referring Unavailable SERVICES, [facility] Unava ilable PAYAL JOHNSON Referring Unavailable SERVICES, [facility] Unava ilable TALSUZY, MARK ANTHONY Attending Unavailable TALEB, MOHAMMAD Referring Unavailable SERVICES, [facility] Unava ilable MADI RAZO Attending Unavailable SERVICES, [facility] Unava ilable Sheryl PLANIMETER OPERATOR - STEM THRESHING MACHINE OPERATOR, [place] Primary Care Provider Services, [facility] Primary Care Provider Sheryl PLANIMETER OPERATOR - STEM THRESHING MACHINE OPERATOR, [place] Primary Care Provider GABRIEL CURTIS Admitting Unavailabl GABRIEL Paredes Attending [facility] Unavailable RASTA PÉREZ Referring Unavailable [facility] Unavailable Services, [facility] Provider MARK ANTHONY DANG Attending Unavailable [facility] Referring Unavailable SERVICES, [facility] Unava ilable MARK ANTHONY DANG Attending Unavailable SERVICES, [facility] Unava ilable MARK ANTHONY DANG Attending Unavailable SERVICES, [facility] Unava ilable Allergies Allergy Classification Reported Allergen(s) Allergy Type Date of Onset Reaction(s) Facility (3 sources) Penicillins Propensity to adverse reactions to drug 01-10-2024 Nausea Only [facility] Medications Current Medications Medication Drug Class(es) Dates Sig (Normalized) Sig (Original) [id number] 200 actuat albuterol 0.09 mg/actuat metered dose inhaler (11 sources) beta2-Adrenergic Agonist Start: 05-20-2024 take 2 puff(s) by inhalation every six hours as needed for wheezing albuterol (PROVENTIL HFA;VENTOLIN HFA) 90 mcg/actuation inhaler Indications: Simple chronic bronchitis (CMS-HCC) Inhale 2 puffs every 6 (six) hours as needed for wheezing. 18 g 11 05/20/2024 Active Start: 10-09-2023 take 2 puff(s) by inhalation every six hours as needed albuterol sulfate HFA (PROVENTIL;VENTOLIN;PROAIR) 108 (90 Base) MCG/ACT inhaler Inhale 2 puffs into the lungs every 6 hours as needed 10/09/2023 Active Start: 10-09-2023 take 2 puff(s) by inhalation every six hours as needed for wheezing albuterol (PROVENTIL HFA;VENTOLIN HFA) 9 0 mcg/actuation inhaler Indications: Simple chronic bronchitis (CMS-HCC) Inhale 2 puffs every 6 (six) hours as needed for wheezing. 18 g 11 10/09/2023 Active amylase 662854 unt / lipase 05640 unt / protease [id number] unt delayed release oral capsule (2 sources) Start: 07-24-2024 hgydjw-annkbpsh-apkimgs (CREON) 68151-886098 units CPEP delayed release capsule Take 2 capsules with each meal and 1 with snacks 720 capsule 3 07/24/2024 Active Brompheniramine / Pseudoephedrine (1 source) alpha-Adrene rgic Agonist Start: 03-14-2021 take 5 mL by mouth every six hours as needed Bromfed DM 30-2-10 MG/5ML 5 ml as needed Orally every 6 hrs 10 Mar, 2021 Active 120 actuat budesonide 0.16 mg/actuat / formoterol fumarate 0.0048 mg/actuat / glycopyrrolate 0.009 mg/actuat metered dose inhaler (2 sources) Corticostero id, beta2-Adrene rgic Agonist Start: 05-20-2024 ssjytuyvic-sfgimdjx-xwcveqs rol 160-9-4.8 mcg/actuation HFA aerosol inhaler Indications: Simple chronic bronchitis (CMS-HCC) , Chronic obstructive pulmonary disease, unspecified COPD type (CMS-HCC) Inhale 2 Inhalations in the morning and 2 Inhalations before bedtime. 10.7 g 11 05/20/2024 Active take 2 puff(s) by in halation at bedtime Amnxhbl-Kxclbumbvbw-Btzsdzokjg (BREZTRI AEROSPHERE) 160-9-4.8 MCG/ACT AERO Inhale 2 puffs into the lungs in the morning and at bedtime Active 1 ml diphenhydrAMINE hydrochloride 50 mg/ml cartridge (1 source) Histamine-1 Receptor Antagonist Start: 08-14-2024 End: 08-15-2024 12.5 mg, IntraVENous, ONCE PRN, 1 dose, Starting on Mon08/14/24 at 1239, Until Sayda 08/15/24 at 1239, Itching, PACU only 2 ml droperidol 2.5 mg/ml injection (1 source) Dopamine-2 Receptor Antagonist Start: 08-14-2024 End: 08-15-2024 0.625 mg, IntraVENous, ONCE PRN, 1 dose, Starting on Mon08/14/24 at 1239, Until Sayda 08/15/24 at 1239, Nausea, Initial antiemetic therapy., PACU only fluticasone propionate 0.05 mg/actuat metered dose nasal spray (1 source) Corticosteroid Start: 03-14-2021 take 1 spray(s) nasal route once daily Fluticasone Propionate 50 MCG/ACT 1 spray in each nostril Nasally Once a day for 30 day(s) Mar, Active 1 ml hydrALAZINE hydrochloride 20 mg/ml injection (1 source) Arteriolar Vasodilator Start: 08-14-2024 10 mg, IntraVENous, EVERY 15 MIN PRN, 2 doses, Starting on Mon08/14/24 at 1239, Until Discontinued, for SBP greater than 180 mmHg for 2 consecutive measurements taken from different sites, Inform provider if SBP is still greater than 180 mmHg 10 minutes after second antihypertensive dose is administered., PACU only 1 ml HYDROmorphone hydrochloride 1 mg/ml cartridge (2 sources) Opioid Agonist Start: 08-14-2024 0.25 mg, IntraVENous, EVERY 5 MIN PRN, 4 doses, Starting on Mon08/14/24 at 1239, Until Discontinued, Pain Moderate (4-6), Phase I - Initial therapy for moderate pain., PACU only Start: 08-14-2024 0.5 mg, IntraV ENous, EVERY 5 MIN PRN, 4 doses, Starting on Mon08/14/24 at 1239, Until Discontinued, Pain Severe (7-10), Phase I - Initial therapy for severe pain., PACU only ibuprofen 800 mg oral tablet (12 sources) Nonsteroidal Anti-inflammatory Drug Start: 06-15-2023 End: 09-09-2024 take 1 tablet by mouth every eight hours as needed for pain ibuprofen (MOTRIN) 800 mg tablet Take 1 tablet (800 mg total) by mouth every 8 (eight) hours as needed for pain. 30 tablet 06/15/2023 09/09/2024 Discontinued lipase/protease/ amylase (CREON ORAL) (1 source) Start: 08-05-2024 lipase/protease/am ylase (CREON ORAL) Take by mouth 3 (three) times a day. 08/05/2024 Active medical marijuana (3 sources) medical marijuan a Take by mouth daily. Active medical marijuan a Take by mouth as needed. Active medical marijuan a Take by mouth as needed. 0 Active 2 ml metoclopramide 5 mg/ml prefilled syringe (1 source) Dopamine-2 Receptor Antagonist Start: 08-14-2024 End: 08-15-2024 10 mg, IntraVENous, ONCE PRN, 1 dose, Starting on Mon08/14/24 at 1239, Until Sayda 3/13/25 at 1239, Nausea, Secondary antiemetic therapy., PACU only naloxone 0.4 mg in 10 mL sodium chloride syringe (1 source) Start: 08-14-2024 IntraVENous, PRN, Opioid Reversal, Starting on 08/14/24 at 1239, PRN if respiratory rate is less than 6/min and patient is difficult to arouse then notify physician STAT. Mix 9 mL of sodium chloride 0.9% with 0.4 mg (1 mL) of naloxone (NARCAN) in 10 mL syringe. (Note: dilution is 0.04 mg/mL) Give 0.08 mg (2 mL of special dilution), slow IV push, repeat up to 0.4 mg (10 mL) or until patient is responsive to physical stimulation and respiratory rate is equal to or greater than 6 breaths/min. Continue to observe, if no response within 3 minutes of administration of 0.4 mg (10 mL) total, repeat dose (0.4 mg as administered previously). Concentration 0.04 mg/mL, PACU only 24 hr nicotine 0.583 mg/hr transdermal system (11 sources) Cholinergic Nicotinic Agonist Start: 10-04-2023 End: 09-09-2024 apply 1 dose transdermal route once daily NICODERM CQ 14 mg/[address] 1 patch on the skin daily. 10/04/2023 09/09/2024 Discontinued Start: 10-04-2023 End: 08-12-2024 apply 1 dose transdermal route every twenty-four hours nicotine (NICODERM CQ) 14 MG/24HR Place 1 patch onto the skin every 24 hours 10/04/2023 08/12/2024 Discontinued (LIST CLEANUP) peg 3350-sod sulf,xelf-cbw-eaj 178.7-7.3-0.5 gram recon soln (1 source) Start: 06-23-2023 End: 06-24-2023 peg 3350-sod sulf,mgde-uek-pxk 178.7-7.3-0.5 gram recon soln Indications: Positive colorectal [...] a day for 5 day(s) Aug, Active 5 ml sodium chloride 9 mg/ml injection (3 sources) Start: 08-14-2024 5-40 mL, Intra VENous, EVERY 12 HOURS SCHEDULED (2 times per day), First dose on Mon08/14/24 at 2100, Until Discontinued, For Line Patency: Peripheral IV = 5 mL; Midline or Central Line = 10 mL/lumen. If following IV push medication, administer flush at same rate as the IV push. Flush volume is determined by type of infusion therapy being given. For non-viscous solutions use: Peripheral IV = 5 mL Midline or Central Line = 10 mL/lumen For viscous solutions (i.e. blood components, parenteral nutrition, contrast media, or after obtaining blood sample) use: Peripheral IV = 10 mL Midline or Central Line = 20 mL/lumen, PACU only Start: 08-14-2024 take 1 mL intravenou sly every hour as needed IntraVENous, at 100 mL/hr, PRN, If patient receiving piggyback infusions without ordered maintenance IV fluids or with frequent/long duration piggyback infusions, Starting on Mon08/14/24 at 1239, Administer at the same rate as the piggyback being infused., PACU only Start: 08-14-2024 5-40 mL, Intra VENous, PRN, Starting on Mon08/14/24 at 1239, Until Discontinued, Line Care, After every IV line use, For Line Patency: Peripheral IV = 5 mL; Midline or Central Line = 10 mL/lumen. If following IV push medication, administer flush at same rate as the IV push. Flush volume is determined by type of infusion therapy being given. For non-viscous solutions use: Peripheral IV = 5 mL Midline or Central Line = 10 mL/lumen For viscous solutions (i.e. blood components, parenteral nutrition, contrast media, or after obtaining blood sample) use: Peripheral IV = 10 mL Midline or Central Line = 20 mL/lumen, PACU only Completed/Discontinued Medications Medication Drug Class(es) Dates Sig (Normalized) Sig (Original) cephalexin 500 mg oral capsule (2 sources) Cephalosporin Antibacterial Start: 04-01-2024 End: 08-12-2024 take 1 capsule by mouth twice daily cephALEXin (KEFLEX) 500 MG capsule TAKE 1 CAPSULE BY MOUTH TWICE DAILY FOR 7 DAYS 04/01/2024 08/12/2024 Discontinued (LIST CLEANUP) cyclobenzaprine hydrochloride 10 mg oral tablet (2 [...] machinery. 10 tablet 0 02/16/2021 07/18/2023 Discontinued 200 actuat levalbuterol 0.045 mg/actuat metered dose inhaler (8 sources) beta2-Adrenergic Agonist Start: 11-02-2023 End: 08-12-2024 take 2 puff(s) by inhalation four times daily as needed levalbuterol (XOPENEX HFA) 45 MCG/ACT inhaler Inhale 2 puffs into the lungs 4 times daily as needed 11/02/2023 08/12/2024 Discontinued (LIST CLEANUP) Start: 11-02-2023 take 2 puff(s) by in halation four times daily as needed for wheezing levalbuterol (XOPENEX HFA) 45 mcg/actuation inhaler Indications: Asthma, unspecified asthma severity, unspecified whether complicated, unspecified whether persistent Inhale 2 puffs 4 (four) times a day as needed for wheezing. 15 g 11 11/02/2023 Active meperidine hydrochloride 50 mg/ml injectable solution (1 source) Opioid Agonist Start: 08-14-2024 12.5 mg, IntraVENous, EVERY 5 MIN PRN, 4 doses, Starting on Mon08/14/24 at 1239, Until Discontinued, Shivering, , May give every 5 minutes to max of 50mg., PACU only methylPREDNISolone 4 mg oral tablet (2 sources) Corticosteroid Start: 04-01-2024 End: 08-12-2024 methylPREDNISolone (MEDROL DOSEPACK) 4 MG tablet TAKE BY MOUTH DIRECTED ON INSIDE OF PACKAGE 04/01/2024 08/12/2024 Discontinued (LIST CLEANUP) penicillin v potassium 25 mg/ml oral solution (2 sources) End: 07-18-2023 penicillin potassium 125 mg/5 mL solution Take by mouth 4 (four) times a day. 0 07/18/2023 Discontinued 10 actuat tiotropium 0.0025 mg/actuat inhalation spray (10 sources) Anticholinergic Start: 10-09-2023 End: 08-12-2024 take 2 puff(s) by inhalation once daily tiotropium (SPIRIVA RESPIMAT) 2.5 MCG/ACT AERS inhaler Inhale 2 puffs into the lungs daily 10/09/2023 08/12/2024 Discontinued (LIST CLEANUP) Start: 10-09-2023 tiotropium bro mide (SPIRIVA RESPIMAT) 2.5 mcg/actuation mist Indications: Simple chronic bronchitis ([facility]-HCC) Inhale 2 Inhalations in the morning. 4 g 11 10/09/2023 Active varenicline 0.5 mg oral tablet (2 sources) Partial Cholinergic Nicotinic Agonist Start: 06-06-2023 End: 07-18-2023 take 2 tablets by mouth in the morning varenicline (CHANTIX) 0.5 mg tablet Take 2 tablets (1 mg total) by mouth in the morning. 0 06/06/2023 07/18/2023 Discontinued Problems Active Problems Problem Classification Problem Date Documented Date Episodic/Chronic Abdominal pain (5 sources) Abdominal pain; Translations: [Unspecified abdominal pain] Onset: 07-30-2024 07-24-2024 Episodic Chronic obstructive pulmonary disease and bronchiectasis (5 sources) Simple chronic bronchitis; Translations: [Simple chronic bronchitis] Onset: 10-09-2023 10-09-2023 Chronic Noninfectious gastroenteritis (5 sources) Noninfective gastroenteritis and colitis, unspecified; Translations: [Postprandial diarrhea] Onset: 01-10-2024 01-10-2024 Episodic Other lower respiratory disease (1 source) Multiple nodules of lung; Translations: [Other nonspecific abnormal finding of lung field] 09-09-2024 Episodic Other lower respiratory disease (1 source) Wheezing Onset: 09-09-2024 Episodic Pancreatic disorders (not diabetes) (3 sources) Pancreatic insufficiency; Translations: [Other specified diseases of pancreas] Onset: 07-30-2024 08-14-2024 Episodic Substance-related disorders (5 sources) Nicotine dependence, cigarettes, uncomplicated; Translations: [Nicotine dependence] Onset: 10-09-2023 10-09-2023 Chronic Unclassified (1 source) positive cologuard Onset: 07-24-2023 Unclassified (1 source) New Patient Onset: 10-09-2023 Past or Other Problems Problem Classification Problem [...] 08-16-2023 Episodic Other gastrointestinal disorders (1 source) Diarrhea, unspecified; Translations: [Diarrhea, unspecified] Onset: 01-15-2024 Episodic Other gastrointestinal disorders (1 source) Stool DNA-based colorectal cancer screening positive; Translations: [Other fecal abnormalities] 06-22-2023 Episodic Other gastrointestinal disorders (4 sources) Diarrhea; Translations: [Diarrhea, unspecified] 01-04-2024 Episodic Other lower respiratory disease (2 sources) Shortness of breath; Translations: [Shortness of breath] Onset: 08-11-2023 Episodic Other lower respiratory disease (2 sources) Dyspnea; Translations: [Shortness of breath] Onset: 10-09-2023 10-09-2023 Episodic Other non-traumatic joint disorders (1 source) Pain in left shoulder; Translations: [Pain in left shoulder] Onset: 08-16-2023 Episodic Unclassified (1 source) Contact with and (suspected) exposure to covid-19 Z20.822 Viral infection (1 source) COVID-19 Results Test Name Value Interpretation Reference Range Facility Surgical Pathology Reporton 08-14-2024 Surgical Pathology Report (NOTE) Path Number: [id number] -- Diagnosis -- A. DUODENUM, BIOPSIES: - NORMAL DUODENAL MUCOSA. B. STOMACH, BIOPSIES: - MILD CHRONIC GASTRITIS. - NEGATIVE FOR HELICOBACTER PYLORI INFECTION AND INTESTINAL METAPLASIA. Felice Egan M.D. Electronically Signed Out 08/15/2024 Clinical Information Pre-Op Diagnosis: PANCREATIC INSUFFICIENCY, ABDOMINAL PAIN Operative Findings: DUODENAL BX; GASTRIC BX Operation Performed: ENDOSCOPIC ULTRASOUND, EGD, PATHOLOGY; EGD BIOPSY mj Source of Specimen A: DUODENAL BX B: GASTRIC BX Gross Description A. ROBYN GALLAGHER DUODENAL BX Received in formalin are two chapman-white tissue fragments from 0.3 to 0.8 cm and are 1.1 x 0.3 x 0.2 cm in aggregate. Entirely 1cs. B. ROBYN GALLAGHER GASTRIC BX Received in formalin are two chapman-white tissue fragments from 0.3 to 0.7 cm and are 1.0 x 0.3 x 0.2 cm in aggregate. Entirely 1cs. shannon tm Magnus Bennett D.O./mj:08/14/2024 Microscopic Description A, B. Microscopic examination performed. Processing Lab: [address] [address] Interpretation Performed at [address] [address] SURGICAL PATHOLOGY CONSULTATION Patient Name: ROBYN GALLAGHER [facility] Rec: [id number] [facility] CONSULTING PATHOLOGISTS [facility] [address] [place], [place] [address] Normal [facility] US GI ENDOSCOPIC S AND Ion 0 08-14-2024 US GI ENDOSCOPIC S AND I Radiology exam is complete. No Radiologist dictation. Please follow up with ordering provider. Final result Normal [facility] US GI ENDOSCOPIC S&Ion 08-14 Radiology exam is complete. No Radiologist dictation. Please follow up with ordering provider. [facility] RIS CONSOLIDATED Celiac Disease Panelon 07-25 Gliadin Deam Pep IgA 1.7 U/mL Normal <7.0 [facility] Comment on above: Result Comment: CELIAC INTERPRETATION <7.0 Negative 7.0-10.0 Equivocal >10.0 Positive units: U/mL Performed By: #### C ELP #### [facility] [place], [place] [id number] Wheel Aligner: Cody Garcia MD Gliadin Deam Pep IgG 0.8 U/mL Normal <7.0 [facility] Comment on above: Result Comment: CELIAC INTERPRETATION <7.0 Negative 7.0-10.0 Equivocal >10.0 Positive units: U/mL Performed By: #### C ELP #### [facility] [address] [place] [address] [id number] Wheel Aligner: Cody Garcia MD Tiss Transglutam IgA 0.4 U/mL Normal <7.0 [facility] Comment on above: Result Comment: CELIAC INTERPRETATION <7.0 Negative 7.0-10.0 Equivocal >10.0 Positive units: U/mL Performed By: #### C ELP #### [facility] [address] [place] [address] [phone] Wheel Aligner: Cody Garcia MD Celiac Disease Panelon 07-24 IgA [Mass/Vol] 169 mg/dL Normal 70-400 [facility] Comment on above: Performed By: #### C ELP #### [facility] [address] [place] [address] [phone] Wheel Aligner: Cody Garcia MD CT LOW DOSE LUNG SCREENINGon 06-26-2024 CT [...] aided detection for pulmonary nodules?was performed utilizing LOAG.DEONTICS software.? FINDINGS: Diagnostic quality: Satisfactory Lung nodules: [...] 9:24 AM 2 LDCT 1 Yr Normal [facility] [place] C DIFFICILE BY PCRon 024 C. difficile toxin genes ANDRZEJ+probe Ql (Stl) TOXIGENIC C DIFF Negative (qualifier value) 027 NAP1 Negative (qualifier value) Normal PRNEG [facility] [place] Comment on above: Performed By: #### 5 [id number] #### [facility] ([id number]) [address], [address] [place] [address] #### [id number] #### [facility] ([id number]) [address] [place] [address] [place] [address] [facility] ([id number]) [address], [address] [place] [address] Elastase.pancreatic (Stl) [M ass/Mass]on 04-08-2024 Pancreatic Elastase, F 123 mcg/g Low >200 (Normal) [facility] [place] Comment on above: Result Comment: NOTE Interpretation: Borderline (100-200 mcg/g); Consistent with slight to moderate pancreatic insufficiency Test Performed by: [address] [address] Wheel Aligner: Erich Rick Ph.D.; CLIA# [id number] Performed By: #### 2 5907-7 #### [facility] ([id number]) [address] [place] [address] GI PANELon 04-08-2024 Gastrointestinal pathogens DNA and [...] the following: Norovirus Genogroups I, II The transportation job titles has reported an increase in false positive Norovirus results. If the positive test is inconsistent with clinical presentation, a secondary method should be used to confirm the results. ROTAVIRUS A Not detected (qualifier value) SAPOVIRUS Not detected (qualifier value) Normal NDET [facility] [place] Comment on above: Performed By: #### 5 [id number] #### [facility] ([id number]) [address] [place] [address], [facility] [address] [place] [address] #### [id number] #### [facility] ([id number]) [address] [place] [address] [address] [facility] ([id number]) [address] [place] [address], [facility] [address] [place] [address] CBC AND AUTO DIFFon 01-15-20 24 ABSOLUTE BASOPHIL 0.0 X10E9/L Normal 0.0-0.2 [facility] Comment on above: Performed By: #### C BCA, CMP #### [facility] ([id number]) [address] [place] [address] ABSOLUTE NEUTROPHIL 6.2 X10E9/L Normal 1.5-6.6 [facility] Comment on above: Performed By: #### C BCA, CMP #### [facility] ([id number]) [address], [address] [place] [address] Basophils/100 WBC (Bld) 0.6 % Normal [facility] Comment on above: Performed By: #### C BCA, CMP #### [facility] ([id number]) [address] [place] [address] Eosinophils (Bld) [#/Vol] 0.2 10*3/uL Normal 0.0-0.4 [facility] Comment on above: Performed By: #### C BCA, CMP #### [facility] ([id number]) [address] [place] [address] Eosinophils/100 WBC (Bld) 2.6 % Normal [facility] Comment on above: Performed By: #### C BCA, CMP #### [facility] ([id number]) [address] [place] [address] Erythrocyte distribution width (RBC) [Ratio] 13.7 % Normal 11.5-15.0 [facility] Comment on above: Performed By: #### C BCA, CMP #### [facility] ([id number]) [address] [place] [address] Hematocrit (Bld) [Volume fraction] 44.0 % Normal 39-49 [facility] Comment on above: Performed By: #### C BCA, CMP #### [facility] ([id number]) [address] [place] [address] Hemoglobin (Bld) [Mass/Vol] 15.0 g/dL Normal 13.0-17.0 [facility] Comment on above: Performed By: #### C BCA, CMP #### [facility] ([id number]) [address] [place] [address] Lymphocytes (Bld) [#/Vol] 1.4 10*3/uL Normal 1.0-3.5 [facility] Comment on above: Performed By: #### C BCA, CMP #### [facility] ([id number]) [address] [place] [address] Lymphocytes/100 WBC (Bld) 16.3 % Normal [facility] Comment on above: Performed By: #### C BCA, CMP #### [facility] ([id number]) [address] [place] [address] MCH (RBC) [Entitic mass] 30.6 pg Normal 27-34 [facility] Comment on above: Performed By: #### C BCA, CMP #### [facility] ([id number]) [address] [place] [address] MCHC (RBC) [Mass/Vol] 34.1 g/dL Normal 32-36 [facility] Comment on above: Performed By: #### C BCA, CMP #### [facility] ([id number]) [address], [address] [place] [address] MCV (RBC) [Entitic vol] 90 fL Normal 80-100 [facility] Comment on above: Performed By: #### C BCA, CMP #### [facility] ([id number]) [address], [address] [place] [address] Monocytes (Bld) [#/Vol] 0.8 10*3/uL Normal 0-0.9 [facility] Comment on above: Performed By: #### C BCA, CMP #### [facility] ([id number]) [address], [address] [place] [address] Monocytes/100 WBC (Bld) 8.9 % Normal [facility] Comment on above: Performed By: #### C BCA, CMP #### [facility] ([id number]) [address], [address] [place] [address] Neutrophils/100 WBC (Bld) 71.6 % Normal [facility] Comment on above: Performed By: #### C MADHAVI, CMP #### [facility] ([id number]) [address], [address] [place] [address] Platelet mean volume (Bld) [Entitic vol] 9.5 fL Normal 7-12 [facility] Comment on above: Performed By: #### C MADHAVI, CMP #### [facility] ([id number]) [address], [address] [place] [address] Platelets (Bld) [#/Vol] 226 10*3/uL Normal 150-450 [facility] Comment on above: Performed By: #### C MADHAVI, CMP #### [facility] ([id number]) [address], [address] [place] [address] RBC COUNT 4.90 X10E12/L Normal 4.10-5.70 [facility] Comment on above: Performed By: #### C BCA, CMP #### [facility] ([id number]) [address], [address] [place] [address] WBC (Bld) [#/Vol] 8.6 10*3/uL Normal 4.0-11.0 [facility] Comment on above: Performed By: #### C BCA, CMP #### [facility] ([id number]) [address], [address] [place] [address] COMPREHENSIVE METABOLIC PANE Leandro 01-15-2024 Albumin [Mass/Vol] 4.1 g/dL Normal 3.2-5.3 [facility] Comment on above: Performed By: #### C BCA, CMP #### [facility] ([id number]) [address], [address] [place] [address] ALP [Catalytic activity/Vol] 72 U/L Normal 39-130 [facility] Comment on above: Performed By: #### C BCA, CMP #### [facility] ([id number]) [address], [address] [place] [address] ALT [Catalytic activity/Vol] 11 U/L Normal 0-40 [facility] Comment on above: Performed By: #### C BCA, CMP #### [facility] ([id number]) [address], [address] [place] [address] Anion gap [Moles/Vol] 7 mmol/L Normal 5-15 [facility] Comment on above: Performed By: #### C BCA, CMP #### [facility] ([id number]) [address], [address] [place] [address] AST [Catalytic activity/Vol] 17 U/L Normal 0-41 [facility] Comment on above: Performed By: #### C BCA, CMP #### [facility] ([id number]) [address], [address] [place] [address] Bilirubin [Mass/Vol] 0.4 mg/dL Normal 0.3-1.2 [facility] Comment on above: Performed By: #### C BCA, CMP #### [facility] ([id number]) [address], [address] [place] [address] Calcium [Mass/Vol] 9.2 mg/dL Normal 8.5-10.5 [facility] Comment on above: Performed By: #### C BCA, CMP #### [facility] ([id number]) [address], [address] [place] [address] Chloride [Moles/Vol] 105 mmol/L Normal 98-109 [facility] Comment on above: Performed By: #### C BCA, CMP #### [facility] ([id number]) [address], [address] [place] [address] CO2 [Moles/Vol] 27 mmol/L Normal 22-32 [facility] Comment on above: Performed By: #### C BCA, CMP #### [facility] ([id number]) [address], [address] [place] [address] Creatinine [Mass/Vol] 0.92 mg/dL Normal 0.60-1.30 [facility] Comment on above: Result Comment: METH OD TRACEABLE TO IDMS STANDARD Performed By: #### C BCA, CMP #### [facility] ([id number]) [address], [address] [place] [address] eGFR (CKD-EPI) NON-RACE DEPENDENT >90 Normal >59 [facility] Comment on above: Result Comment: Reported eGFR is based on the CKD-EPI 2020 equation that does not use a race coefficient. Performed By: #### C BCA, CMP #### [facility] ([id number]) [address], [address] [place] [address] Glucose [Mass/Vol] 87 mg/dL Normal 65-99 [facility] Comment on above: Performed By: #### C BCA, CMP #### [facility] ([id number]) [address], [address] [place] [address] Potassium [Moles/Vol] 4.1 mmol/L Normal 3.5-5.0 [facility] Comment on above: Performed By: #### C BCA, CMP #### [facility] ([id number]) [address], [address] [place] [address] Protein [Mass/Vol] 6.8 g/dL Normal 6.0-8.0 [facility] Comment on above: Performed By: #### C BCA, CMP #### [facility] ([id number]) [address], [address] [place] [address] Sodium [Moles/Vol] 139 mmol/L Normal 134-146 [facility] Comment on above: Performed By: #### C BCA, CMP #### [facility] ([id number]) [address], [address] [place] [address] Urea nitrogen [Mass/Vol] 10 mg/dL Normal 5-23 [facility] Comment on above: Performed By: #### C BCA, CMP #### [facility] ([id number]) [address], [address] [place] [address] Celiac Disease Panelon 01-11 Gliadin Deam Pep IgA 1.5 U/mL Normal <7.0 [facility] Comment on above: Result Comment: CELIAC INTERPRETATION <7.0 Negative 7.0-10.0 Equivocal >10.0 Positive units: U/mL Performed By: #### C ELP #### [facility] [place], [place] [address] Wheel Aligner: Cody Garcia MD Gliadin Deam Pep IgG <0.4 Normal <7.0 [facility] Comment on above: Result Comment: CELIAC INTERPRETATION <7.0 Negative 7.0-10.0 Equivocal >10.0 Positive units: U/mL Performed By: #### C ELP #### [facility] [address] [place] [address] Wheel Aligner: Cody Garcia MD Tiss Transglutam IgA 0.4 U/mL Normal <7.0 [facility] Comment on above: Result Comment: CELIAC INTERPRETATION <7.0 Negative 7.0-10.0 Equivocal >10.0 Positive units: U/mL Performed By: #### C ELP #### [facility] [address] [place] [address] Wheel Aligner: Cody Garcia MD Celiac Disease Panelon 01-09 IgA [Mass/Vol] 212 mg/dL Normal 70-400 [facility] Comment on above: Performed By: #### C ELP #### [address] [place] [address] Wheel Aligner: Cody Garcia MD Alpha 1 antitrypsin Nephelom etry [Mass/Vol]on 10-09-2023 [facility] A1A Targeted Lia See Below Normal [facility] Comment on above: Result Comment: NOTE TEST RESULT FLAG UNIT REF.RANGE ------ Alpha-1 Antitrypsin Genotyping Interpretation See below Alpha-1 Antitrypsin Genotyping Laboratory Accession Number: [id number] Result: No Variant Detected in SERPINA1 (PI*MM) [...] two most common pathogenic variants: S (c.863A>T, p.Zxs636Dlz, g.92241539), Z (c.1096G>A, p.Frc098Aqr, g.71572106), and the rarer variants: F (c.739C>T, p.Znp395Cav, g.90482719), I (c.187C>T, p.Chw64Yju, g.97314069). Limitations: This Laboratory Developed Test (LDT) is [...] developed and its performance characteristics determined by [facility] [place] ([facility]). It has not been cleared or approved by the FDA. [facility] is regulated under CLIA as certified to perform high- complexity testing. This test is used for clinical purposes. It should not be regarded as investigational or for research. Testing and interpretation performed at [facility], [address] [place] [address]. CLIA Number: [id number] References: 1) Travon RA, Tatianna G, Caroline ML, Jason M, Agustin CE, K, Lisa DK, Ofelia SL, Darnell JM, [place] LaureanoK, Fernanda C, Enrique J. The Diagnosis and Management of Alpha-1 Antritrypsin Deficiency in the Adult. Chronic Obstr Pulm Dis. 2016 Nov 08;3:668-682. 2) Samuel JA, Lianet ON, Nathalia ER, Zhen REYNOLDS. a1-Antitrypsin phenotypes and associated serum protein concentrations in a large clinical population. Chest.2013 Sep;143(4):1000-8. 3) Jethro A, Dc NA, Devon CR, Kevin FJ, Sandeep SJ, Rosanne AF. Molecular characterisation of three gufxx-7-nsmvogjnusp deficiency variants: proteinase inhibitor (Pi) nullcardiff (Pkd320----Sdz); PiMmalton (Dqq65----oqmhlkwv) and PiI (Lfo86----Vle). Hum Maureen. 1988;84(1):55-8. 4) Tam EK and Travon SHIELDS. Clinical practice. Alpha1-antitrypsin deficiency. N Engl J Med. 2008Nov 27;360(17)8489-64. 5) Candelario NJ, Mychal F, Inder SHIELDS. The significance of the F variant of zfbrx-5-jsdogbapwzl and unique case report of a PiFF homozygote. BMC Pulm Med. 2013Jan 09;14:132. 6) [place] LaureanoK, Mike FL, and Michael Cabezas. Alpha-1 Antitrypsin Deficiency. 2005Mar 31 [Updated 2017 June 23]. In: Emily RA, Colt MP, Taqueria TO, et al., editors. [employer]ws [Internet]. [place] ([place]): [facility], [place]; [phone]. Available from: http://www.ncbi.nlm.nih.gov/books/SUR3257/ As reviewed by Henry Morgan, PhD, FACMG Test Performed by: [place] [address] Water Treatment Technician: Ilan SHAW #[id number] Performed By: #### 6 771-0 #### [facility] ([id number]) [address] [place] [address], [address] [place] [address] #### [id number] #### [facility] ([id number]) [address] [place] [address], [place] [address] ALPHA 1 ANTITRYPSIN 165 mg/dL Normal 83-[address] [facility] Comment on above: Performed By: #### 6 771-0 #### [facility] ([id number]) [address] [place] [address], [address] [place] [address] #### [id number] #### [facility] ([id number]) [address] [facility], [place] [address] Zukfb-4-dzfxwoqdddwxh 2023 Alpha 1 antitrypsin Nephelometry [Mass/Vol] 165 mg/dL 83 - 199 mg/dL [facility] XR CHEST 2 VWSon 08-12-2023 XR CHEST 2 VWS XR CHEST 2 VWS Chest 2 views History: SOB (shortness of breath) Comparison: None Findings: Chest 2 views. Small left pleural effusion with left pleural thickening or scarring. Calcified left lung granuloma. Degenerative changes of the thoracic spine. Impression: No evident acute cardiopulmonary process. Finalized by Binta Herrera MD on 08/12/2023 9:20 AM Normal [facility] H PYLORI SCREENon 07-24-2023 H. pylori Org specific cx Ql (Shukri fld) Negative Normal NEG [facility] Comment on above: Performed By: #### 4 4015-6 #### [facility] ([id number]) [address] [place] [address], [address] [place] [address] Surgical Pathologyon 024 Surgical Pathology Normal [facility] Comment on above: Result Comment: [facility] [address] [place] [address] Surgical Pathology Consultation Patient Name:ROBYN MCCULLOUGH:1970 (Age: 52)Gender:MTaken:4Reported:07/27/2023hysician(s):Binta Bateman D.O. ([phone])Copy To: Rec. #:[id number]: #[id number] Final Pathologic Diagnosis 1. Antrum biopsy: Mild chronic gastritis. Negative for helicobacter organisms on routine H&E examination. Negative for atypia or malignancy. 2. Sigmoid colon polyp: Hyperplastic polyp. 3. Rectal sigmoid junction x5: Hyperplastic polyps. Report Electronically Signed Out 07/27/2023Gayle Bruner MD Interpretation performed at [facility], [address] [place], [address], License number: [id number]. Clinical History Positive Cologuard. Gross Description 1. Received in formalin labeled MARIELENA, antrum BX are two light chapman soft tissue bits, 0.2 cm each. The specimen is filtered and entirely submitted in a single cassette. (1, ns, [id number],m8) DM. 2. Received in formalin labeled MARIELENA, sigmoid polyp is a light chapman soft tissue bit, 0.2 cm. The specimen is filtered and entirely submitted in a single cassette. (1, ns, [id number],m8) DM. 3. Received in formalin labeled MARIELENA, rectal sigmoid junction X5 are six light chapman soft tissue bits, 0.1-0.5 cm. The specimen is filtered and entirely submitted in a single cassette. (1, ns, [id number],m8) DM. dm/07/25/2023EAK Specimen(s) Received 1: Antrum biopsy 2: Sigmoid colon polyp 3: Rectal sigmoid junction x5 Fee Codes(s): 1; 20710 2; 33318 3; 55476 COVID Quick Testingon 2022 Result Positive [employer] Other COVID Quick Testingon 2020 Result Negative [employer] Other Vital Signs Date Time Vital Sign Value Performing Clinician Facility 09-09-2024 09:18-0400 Body height 175.3 cm Mark Anthony Dang MD Work Phone: [facility] [employer] 09-09-2024 09:18-0400 Body mass index (BMI) [Ratio] 28.13 kg/m2 Mark Anthony Dang MD Work Phone: [facility] 09-09-2024 09:18-0400 Body weight 86.46 kg Mark Anthony Dang MD Work Phone: [facility] [employer] [facility] 09-09-2024 09:18-0400 Diastolic blood pressure 72 mm[Hg] Mark Anthony Dang MD Work Phone: [facility] 09-09-2024 09:18-0400 Heart rate 69 /min Mark Anthony Dang MD Work Phone: [facility] 09-09-2024 09:18-0400 SaO2% (BldA) [Mass fraction] 96 % Mark Anthony Dang MD Work Phone: [facility] 09-09-2024 09:18-0400 Systolic blood pressure 120 mm[Hg] Mark Anthony Dang MD Work Phone: [facility] 08-14-2024 13:15-0400 Body temperature 96.8 [degF] Gabriel Curtis MD Work Phone: [facility] [employer] 08-14-2024 13:15-0400 Diastolic blood pressure 80 mm[Hg] Gabriel Curtis MD Work Phone: [facility] [employer] 08-14-2024 13:15-0400 Heart rate 60 /min Gabriel Curtis MD Work Phone: [facility] [employer] 08-14-2024 13:15-0400 Respiratory rate 14 /min Gabriel Curtis MD [facility] 08-14-2024 13:15-0400 SaO2% (BldA) [Mass fraction] 99 % Gabriel Curtis MD Work Phone: [employer] 08-14-2024 13:15-0400 Systolic blood pressure 112 mm[Hg] Gabriel Curtis MD Work Phone: [facility] [employer] 08-12-2024 11:03-0400 Body height 175.3 cm Gabriel Curtis MD Work Phone: [facility] [employer] 08-12-2024 11:03-0400 Body mass index (BMI) [Ratio] 28.06 kg/m2 Gabriel Curtis MD Work Phone: [facility] 08-12-2024 11:03-0400 Body weight 86.18 kg Gabriel Curtis MD Work Phone: [facility] 10-09-2023 09:05-0400 Body height 175.3 cm Mark Anthony Dang MD Work Phone: [facility] 10-09-2023 09:05-0400 Body mass index (BMI) [Ratio] 27.84 kg/m2 Mark Anthony Dang MD Work Phone: [facility] 10-09-2023 09:05-0400 Body weight 85.5 kg Mark Anthony Dang MD Work Phone: [facility] 10-09-2023 09:05-0400 Diastolic blood pressure 79 mm[Hg] Mark Anthony Dang MD Work Phone: [facility] 10-09-2023 09:05-0400 Heart rate 73 /min Mark Anthony Dang MD Work Phone: [facility] 10-09-2023 09:05-0400 SaO2% (BldA) [Mass fraction] 99 % Mark Anthony Dang MD Work Phone: [facility] 10-09-2023 09:05-0400 Systolic blood pressure 116 mm[Hg] Mark Anthony Dang MD Work Phone: [facility] 07-18-2023 10:03-0500 Body height 175.3 cm Pmh 1 [facility] 07-18-2023 10:03-0500 Body mass index (BMI) [Ratio] 28.06 kg/m2 [facility] 1 [facility] 07-18-2023 10:03-0500 Body weight 86.18 [address] [address] [place] [address] 06-23-2023 12:54-0500 Body height 175.3 cm Verito MARTIN Work Phone: [employer] 06-23-2023 12:54-0500 Body mass index (BMI) [Ratio] 27.35 kg/m2 Verito Roe PLANIMETER OPERATOR-SETTLEMENT AGENT Work Phone: [email or web address] 06-23-2023 12:54-0500 Body weight 84.01 kg Verito Roe PLANIMETER OPERATOR-SETTLEMENT AGENT Work Phone: [email or web address] 06-23-2023 12:54-0500 Diastolic blood pressure 63 mm[Hg] Verito Roe PLANIMETER OPERATOR-SETTLEMENT AGENT Work Phone: [email or web address] 06-23-2023 12:54-0500 Systolic blood pressure 101 mm[Hg] Verito Roe PLANIMETER OPERATOR-SETTLEMENT AGENT Work Phone: [email or web address] 08-29-2022 14:35-0400 Body height 175.26 cm Lesia Teena Other [employer] Other 08-29-2022 14:35-0400 Body mass index (BMI) [Ratio] 24.22 kg/m2 Lesia Teena Other [employer] Other 08-29-2022 14:35-0400 Body temperature 98.3 [degF] Lesia Teena Other [employer] Other 08-29-2022 14:35-0400 Body weight 74.39 kg Lesia Teena Other [employer] Other 08-29-2022 14:35-0400 Respiratory rate 18 /min Lesia Teena Other [employer] Other 08-29-2022 14:35-0400 SaO2% (BldA) [Mass fraction] 99 % Lesia Teena Other [employer] Other 03-14-2021 12:15-0400 Body height 175.26 cm Nancy Messina Other [employer] Other 03-14-2021 12:15-0400 Body mass index (BMI) [Ratio] 26.58 kg/m2 Nancy Messina Other [employer] Other 03-14-2021 12:15-0400 Body temperature 97.5 [degF] Nancy Messina Other [employer] Other 03-14-2021 12:15-0400 Body weight 81.65 kg Nancy Messina Other [employer] Other 03-14-2021 12:15-0400 SaO2% (BldA) [Mass fraction] 98 % Nancy Messina Other [employer] Other Encounters Encounter Date Encounter Type Care Provider Facility Start: 09-09-2024 End: 09-09-2024 Office outpatient visit 15 minutes Mark Anthony Dang MD Work Phone: [facility] Comment on above: Chronic obstructive pulmonary disease, unspecified COPD type (CMS-HCC) (Primary Dx); Cigarette nicotine dependence without complication; Multiple lung nodules Start: 09-09-2024 End: 09-09-2024 ambulatory MARK ANTHONY DANG [facility] Start: 08-14-2024 End: 08-14-2024 ambulatory GABRIEL CURTIS [facility] Start: 08-14-2024 End: 08-14-2024 Subsequent hospital visit by physician Gabriel Curtis MD Work Phone: [facility] Comment on above: Abdominal pain, unsp ecified abdominal location; Pancreatic insufficiency Start: 07-24-2024 End: 07-24-2024 [facility] Start: 07-24-2024 End: 07-24-2024 Subsequent hospital visit by physician Les Saucedo PLANIMETER OPERATOR - STEM THRESHING MACHINE OPERATOR Work Phone: [facility] Comment on above: Chronic diarrhea; Abdominal pain, unspecified abdominal location Start: 06-25-2024 End: 06-25-2024 ambulatory [facility] Start: 05-20-2024 End: 05-20-2024 ambulatory [facility] Start: 05-06-2024 End: 05-06-2024 Telephone encounter [facility] Start: 04-22-2024 End: 04-22-2024 Orders Only Les Saucedo PLANIMETER OPERATOR-BANKING AND FINANCE INSTRUCTOR Work Phone: [facility] Comment on above: Diarrhea, unspecifie d Start: 04-09-2024 End: 04-09-2024 ambulatory PAYALLUIS ALBERTO JOHNSON [facility] Start: 04-08-2024 End: 04-08-2024 ambulatory PAYAL JOHNSON [facility] Start: 01-15-2024 End: 01-15-2024 ambulatory LES SAUCEDO [facility] Start: 01-10-2024 End: 01-10-2024 ambulatory PAYAL JOHNSON [facility] Start: 01-10-2024 End: 01-10-2024 Subsequent hospital visit by physician Les Saucedo PLANIMETER OPERATOR - STEM THRESHING MACHINE OPERATOR Work Phone: [facility] Comment on above: Postprandial diarrhe a Start: 01-04-2024 End: 01-04-2024 Orders Only Les Saucedo PLANIMETER OPERATOR-BANKING AND FINANCE INSTRUCTOR Work Phone: [facility] Comment on above: Diarrhea, unspecifie d Start: 11-01-2023 End: 11-01-2023 Telephone encounter Jenna Myrick LPN [facility] Start: 10-10-2023 End: 11-04-2023 ambulatory [facility] Start: 10-09-2023 End: 10-09-2023 ambulatory [facility] Start: 10-09-2023 End: 10-09-2023 Office outpatient new 45 minutes Mark Anthony Dang MD Work Phone: [facility] Comment on above: Simple chronic bronc hitis (CMS-HCC) (Primary Dx); Shortness of breath; Cigarette nicotine dependence, uncomplicated Start: 10-09-2023 End: 10-09-2023 ambulatory [facility] Start: 09-04-2023 End: 10-04-2023 ambulatory [facility] Start: 08-28-2023 End: 08-28-2023 ambulatory [facility] Start: 08-16-2023 End: 09-04-2023 ambulatory [facility] Start: 08-11-2023 Telephone encounter [facility] Start: 08-11-2023 End: 08-11-2023 ambulatory [facility] Start: 07-28-2023 Telephone encounter Ann [facility] Carbajal C[facility] Start: 07-25-2023 End: 07-25-2023 Evaluation and management of inpatient MADI RAZO [facility] Start: 07-24-2023 End: 07-25-2023 Evaluation and management of inpatient BINTA BATEMAN [facility] Start: 07-18-2023 End: 07-18-2023 ambulatory [facility] Start: 06-23-2023 End: 06-23-2023 Office outpatient new 30 minutes Verito Roe APRN-SETTLEMENT AGENT Work Phone: [facility] Comment on above: Positive colorectal cancer screening using Cologuard test (Primary Dx) Start: 08-29-2022 End: 08-29-2022 ambulatory Lesia Dickinson Other [employer] Other Start: 08-29-2022 Office outpatient vi sit 15 minutes Lesia Dickinson [facility] Start: 03-14-2021 Office outpatient vi sit 15 minutes Nancy Galvanault [facility] Procedures Date Procedure Procedure Detail Performing Clinician Start: 08-14-2024 Gi endoscopic us s&i Sy ed Danielito Curtis MD Work Phone: Start: 07-24-2024 Assay of gammaglobul in iga igd igg igm each Higinio Hwang MD Work Phone: Start: 01-10-2024 Assay of gammaglobul in iga igd igg igm each Payal Johnson PLANIMETER OPERATOR - SETTLEMENT AGENT Work Phone: Start: 07-24-2023 Colonoscopy Ann Marie crane IMPLEMENTATION COORDINATOR Plan of Treatment Date Care Activity Detail Author Start: 07-24-2033 Screening for malignant neoplasm of colon Colonoscopy [facility] Start: 07-21-2032 DTaP,Tdap and Td Vaccines (2 - Td or Tdap) DTaP,Tdap and Td Vaccines (2 - Td or Tdap) [facility] Start: 07-21-2032 DTaP/Tdap/Td vaccine (2 - Td or Tdap) DTaP/Tdap/Td vaccine (2 - Td or Tdap) [facility] Start: 05-28-2026 Screening for malignant neoplasm of colon [facility] Start: 06-26-2025 End: 09-09-2025 CT Chest for screening WO contrast CT low dose lung screening (Annual) Imaging Routine Cigarette nicotine dependence without complication Expected: 06/26/2025 (Approximate), Expires: 09/09/2025 [facility] Work Phone: Comment on above: Expected: 06/26/2025 (Approximate), Expi res: 09/09/2025 Start: 06-25-2025 Adult [facility]ening [facility] Start: 06-25-2025 Tobacco Screening Tobacco Screening [facility] Start: 02-03-2025 Influenza vaccination Influenza Vaccine [facility] Start: 01-22-2025 End: 01-22-2025 Patient encounter procedure 01/22/2025 3:45 PM EDT Office Visit [facility] [address] [place] [address] [place] [address] [place], [place] [phone] 6 month f/u [facility] Comment on above: 6 month f/u Start: 10-08-2024 Adult BMI Screening Adult BMI Screening [facility] Start: 10-08-2024 Tobacco Screening Tobacco Screening [facility] Start: 08-14-2024 End: 08-14-2024 Edg us exam surgical alter stom duodenum/jejunum ENDOSCOPIC ULTRASOUND Pancreatic insufficiency Abdominal pain, unspecified abdominal location 08/14/2024 12:[address] [facility] Start: 07-24-2024 Adult BMI Screening Adult BMI Screening [facility] Start: 07-24-2024 Tobacco Screening Tobacco Screening [facility] Start: 07-18-2024 Adult BMI Screening Adult BMI Screening [facility] Start: 07-09-2024 Tobacco Screening Tobacco Screening [facility] Start: 06-23-2024 Adult BMI Screening Adult BMI Screening [facility] Start: 06-23-2024 Tobacco Screening Tobacco Screening [facility] Start: 06-10-2024 End: 10-08-2024 CT Chest for screening WO contrast CT low dose lung screening (Annual) Imaging Routine Cigarette nicotine dependence, uncomplicated Expected: 06/10/2024 (Approximate), Expires: 10/08/2024 [facility] Work Phone: Comment on above: Expected: 06/10/2024 (Approximate), Expi res: 10/08/2024 Start: 05-20-2024 End: 05-20-2024 Patient encounter procedure 05/20/2024 10:45 AM EST Office Visit [facility] [address] [place] [address] Mark Anthony Dang MD [address] [place] [address] [facility] Start: 04-22-2024 End: [...] Comment on above: Expected: 04/22/2024, Expires: Start: 02-21-2024 End: 02-21-2024 Patient encounter procedure 02/21/2024 11:00 AM EDT Office Visit [facility] [address] [phone] Payal Johnson, PLANIMETER OPERATOR - SETTLEMENT AGENT [address] [place], [place] [phone] [facility] Comment on above: [facility] Start: 02-04-2024 COVID-19 Vaccine ( season) COVID-19 Vaccine ( season) [facility] Start: 02-04-2024 Influenza vaccination Influenza Vaccine [facility] Start: 01-04-2024 End: 01-03-2025 CBC W Auto Differential panel - Blood CBC auto differential Lab Routine Diarrhea, unspecified Expected: 01/04/2024, Expires: 01/03/2025 [facility] Work Phone: Comment on above: Expected: 01/04/2024, Expires: Start: 01-04-2024 End: 01-03-2025 Comprehensive metabolic 2000 panel - Serum or Plasma Comprehensive metabolic panel Lab Routine Diarrhea, unspecified Expected: 01/04/2024, Expires: 01/03/2025 [facility] Work Phone: Comment on above: Expected: 01/04/2024, Expires: Start: 01-04-2024 Influenza vaccination Flu vaccine (#1) [facility] Start: 10-09-2023 End: 10-09-2023 Patient encounter procedure 10/09/2023 9:00 AM EDT Office Visit [facility] [address] [place] [phone] Mark Anthony Dang MD [address] [place] [address] [facility] Start: 08-21-2023 End: 08-21-2023 Patient encounter procedure 08/21/2023 2:15 PM EDT Appointment [facility] Imaging [address] [place] [phone] Abraham Hernandez, [address] [place] [address] [facility] Start: 08-15-2023 End: 08-15-2023 Patient encounter procedure 08/15/2023 8:00 AM EDT Appointment [facility] - Pulmonary Function [address] [place] [phone] Mark Anthony Dang MD [address] [place] [address] [facility] Start: 07-24-2023 End: 07-24-2023 Admission to same day surgery center 07/24/2023 11:00 AM EST - 07/24/2023 11:45 AM EST Surgery [facility] Surgery [address] [place] [phone] [place] [address] [place] [id number] ESOPHAGOGASTRODUODENOSCOPY DIAGNOSTIC [40443 (CPT )] [facility] Comment on above: ESOPHAGOGASTRODUODENOSCOPY DIAGNOSTIC [4 3235 (CPT )] Start: 07-24-2023 End: 07-24-2023 Anesthesia consultation 07/24/2023 11:00 AM EST Anesthesia Event [facility] Surgery [address] [place] [phone] Madi Razo, DO [address] [facility] [place] [address] [facility] Start: 07-24-2023 End: 07-24-2023 Colonoscopy flx dx w/collj spec when pfrmd COLONOSCOPY DIAGNOSTIC / SCREENING positive cologuard 07/24/2023 11:00 AM EST [facility] Start: 07-24-2023 End: 07-24-2023 Esophagogastroduodenoscopy transoral diagnostic ESOPHAGOGASTRODUODENOSCOPY DIAGNOSTIC positive cologuard 07/24/2023 11:00 AM EST [facility] Start: 07-24-2023 Subsequent hospital visit by physician 07/24/2023 11:00 AM EST Hospital Encounter [facility] - Surgery [address] [place] [phone] [place] [address] [place] [address] [facility] Start: 07-18-2023 End: 07-18-2023 ambulatory 07/18/2023 4:00 PM EST Support Visit [facility] Admit [address] [place] [phone] [facility] Pre Admit Start: 02-03-2023 Influenza vaccination Influenza Vaccine [facility] Start: 2022 Administration of varicella zoster vaccine Zoster (Shingles) Vaccine (1 of 2) [facility] Start: 2022 Pneumococcal 50+ years Vaccine (1 of 1 - PCV) Pneumococcal 50+ years Vaccine (1 of 1 - PCV) [facility] Start: 2022 Screening for malignant neoplasm of lung Lung Cancer Screening &/or Counseling [facility] Start: 2022 Shingles vaccine (1 of 2) Shingles vaccine (1 of 2) [facility] Start: 2017 Screening for malignant neoplasm of colon [facility] Start: 2012 Lipid panel Lipids [facility] Start: 09-07-2007 Diabetes screen Diabetes screen [facility] Start: 09-07-1991 Hepatitis B vaccine (1 of 3 - 19+ 3-dose series) Hepatitis B vaccine (1 of 3 - 19+ 3-dose series) [facility] Start: 09-07-1991 Pneumococcal 50+ years Vaccine (1 of 2 - PCV) Pneumococcal 50+ years Vaccine (1 of 2 - PCV) [facility] Start: 1990 Adult BMI Follow Up Plan Adult BMI Follow Up Plan [facility] Start: 1990 Hepatitis C screening Hepatitis C screen [facility] Start: 09-07-1987 HIV screening HIV screen [facility] Start: 1984 Depression Screen Depression Screen [facility] Start: 1984 Depression Screening Depression Screening [facility] Start: 03-08-1973 COVID-19 Vaccine (#1) COVID-19 Vaccine (#1) [facility] Start: 1972 Hepatitis B vaccine (1 of 3 - 3-dose series) Hepatitis B vaccine (1 of 3 - 3-dose series) [facility] Start: 1972 Tobacco Counseling Tobacco Counseling [facility] Alpha 1 antitrypsin [Mass/volume] in Serum or Plasma by Nephelometry Alpha 1 antitrypsin targeting genotyping Lab Routine Cigarette nicotine dependence, uncomplicated 10/09/2023 10:08 AM EDT [facility] End: 10-08-2024 Alpha 1 antitrypsin targeting genotyping Alpha 1 antitrypsin targeting genotyping Lab Routine Cigarette nicotine dependence, uncomplicated 1 Occurrences starting 10/09/2023 until 10/08/2024 [facility] [employer] Comment on above: 1 Occurrences starting 10/09/2023 until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 filedocumented in this encounter [facility] filedocumented in this encounter [facility] filedocumented in this encounter [facility] Narrative* Auth/Cert Specialty Diagnoses / Procedures Referred By Andrés au Referred To Contact Diagnoses Pancreatic insufficiency Abdominal pain, unspecified abdominal location Procedures DE ESOPHAGOGASTRODUODENOSCOPY TRANSORAL DIAGNOSTIC US ENDO ENDOSCOPIC ULTRASOUND DE EGD TRANSORAL BIOPSY SINGLE/MULTIPLE DE EGD BALLOON DILATION ESOPHAGUS <30 MM DIAM ESOPHAGOGASTRODUODENOSCOPY ENDOSCOPIC ULTRASOUND WITH PATHOLOGY Gabriel Curtis MD [address] [place] [address] Phone: tel: fax: [facility] [place] [employer] [id number] [place] [address] Referral ID Status Reason Start Date Expiration Date Visits Re quested Visits Authorized [id number] 1 1 [facility] [place] [employer] Summary Purpose Family History No Family History Records FoundNo Family History Records FoundNo Family History Records FoundNo Family History Records Found Advance Directives No Advanced Directives Records FoundNo Advanced Directives Records FoundNo Advanced Directives Records FoundNo Advanced Directives Records Found Reason for Referral Specialty Diagnoses / Procedures Referred By Andrés au Referred To Contact Radiology Diagnoses Cigarette nicotine dependence, uncomplicated Procedures CT low dose lung screening (Annual) Mark Anthony Dang MD [address] [place] [address] Referral ID Status Reason Start Date Expiration Date V isits Requested Visits Authorized [id number] Pending Review 10/09/2023 10/08/2024 1 1 Additional Source Comments REASON FOR VISIT (unrecogniz ed section and content) Reason Comments New Patient CXR: 08/11/2023FT: 08/28/2023SOB: morning, during physical activityTobacco Use: YesStarted Tobacco: 1988Hx Sleep Apnea: No Shortness of Breath Specialty Diagnoses / Procedures Referred By Contsoy au Referred To Contact Pulmonary Medicine Diagnoses Shortness of breath Les Saucedo APRN-BANKING AND FINANCE INSTRUCTOR [address] [place] [address] sp Pulm Sleep Med [facility]ly [facility] [place] [address] Referral ID Status Reason Start Date Expiration Date Visits Requested Visits Authorized [id number] Pending Review Specialty Services Required 08/10/2023 08/09/2024 1 1 Reason Comments POSITIVE COLOGUARD REFERRED BY NILA XIAO AMDORY Reason Comments COPD Smoking pack a dayIm aging: CTLDS 06/26/24 Wheezing Wakes up due to whee zing (unrecognized sect ion and content) No Status Records FoundNo Status Records FoundNo Status Records FoundNo Status Records Found INFORMATION SOURCE (unrecogn ized section and content) DATE CREATED AUTHOR 01/13/2024 Bridgett delgado DATE CREATED AUTHOR AUTHOR'S ORGANIZ ATION 06/26/2024 [facility] DATE CREATED AUTHOR AUTHOR'S ORGANIZ ATION 08/16/2024 [facility] DATE CREATED AUTHOR AUTHOR'S ORGANIZ ATION 09/10/2024 [facility] Teams (unrecognized sec tion and content) Feed Project Engineer Relationship Specialty Start Date End Date Les Saucedo APRN - STEM THRESHING MACHINE OPERATOR [address] [facility] [facility] [place] [address] PCP - General Nurse Practitioner 01/04/24 Feed Project Engineer Relationship Specialty Start Date End Date Services, [facility] [address] [place], [place] PCP - General Family Medicine 08/28/22 Feed Project Engineer Relationship Specialty Start Date End Date Services, [facility] [address] [place], [place] PCP - General Family Medicine 08/28/22 Feed Project Engineer Relationship Specialty Start Date End Date Services, [facility] [address] [place], [place] PCP - General Family Medicine 08/28/22 Feed Project Engineer Relationship Specialty Start Date End Date Services, [facility] [address] [place] PCP - General Family Medicine 08/28/22 Feed Project Engineer Relationship Specialty Start Date End Date Services, [facility] [address] [place] PCP - General Family Medicine 08/28/22 Feed Project Engineer Relationship Specialty Start Date End Date Services, [facility] [address] [place] PCP - General Family Medicine 08/28/22 Feed Project Engineer Relationship Specialty Start Date End Date Services, [facility] [address] [place] PCP - General Family Medicine 08/28/22 Feed Project Engineer Relationship Specialty Start Date End Date Services, [facility] [address] [place] PCP - General Family Medicine 08/28/22 Feed Project Engineer Relationship Specialty Start Date End Date Les Saucedo APRN - JUAN [address] [place] [address] PCP - General Nurse Practitioner 01/04/24 Feed Project Engineer Relationship Specialty Start Date End Date Sheryl CRISTOPHER Arias - STEM THRESHING MACHINE OPERATOR [address] [place] [address] PCP - General Nurse Practitioner 01/04/24 Scheduled Active and Recently Administ ered Medications (unrecognized section and content) Medication Order 08/12/2024 08/13/2024 08/14/2024 sodium chloride flush 0.9 % injection 5-40 mL 5-40 mL, IntraVENous, EVERY 12 HOURS SCHEDULED (2 times per day), First dose on Mon08/14/24 at 2100, Until Discontinued, For Line Patency: Peripheral IV = 5 mL; Midline or Central Line = 10 mL/lumen. If following IV push medication, administer flush at same rate as the IV push. Flush volume is determined by type of infusion therapy being given. For non-viscous solutions use: Peripheral IV = 5 mL Midline or Central Line = 10 mL/lumen For viscous solutions (i.e. blood components, parenteral nutrition, contrast media, or after obtaining blood sample) use: Peripheral IV = 10 mL Midline or Central Line = 20 mL/lumen, PACU only 2100 (Due) PRN Medication Order 08/12/2024 08/13/2024 08/14/2024 0.9 % sodium chloride infusion IntraVENous, at 100 mL/hr, PRN, If patient receiving piggyback infusions without ordered maintenance IV fluids or with frequent/long duration piggyback infusions, Starting on Mon08/14/24 at 1239, Administer at the same rate as the piggyback being infused., PACU only diphenhydrAMINE (BENADRYL) injection 12.5 mg 12.5 mg, IntraVENous, ONCE PRN, 1 dose, Starting on Mon08/14/24 at 1239, Until Sayda 08/15/24 at 1239, Itching, PACU only droPERidol (INAPSINE) injection 0.625 mg 0.625 mg, IntraVENous, ONCE PRN, 1 dose, Starting on Mon08/14/24 at 1239, Until Sayda 08/15/24 at 1239, Nausea, Initial antiemetic therapy., PACU only hydrALAZINE (APRESOLINE) injection 10 mg 10 mg, IntraVENous, EVERY 15 MIN PRN, 2 doses, Starting on Mon08/14/24 at 1239, Until Discontinued, for SBP greater than 180 mmHg for 2 consecutive measurements taken from different sites, Inform provider if SBP is still greater than 180 mmHg 10 minutes after second antihypertensive dose is administered., PACU only HYDROmorphone (DILAUDID) injection 0.25 mg 0.25 mg, IntraVENous, EVERY 5 MIN PRN, 4 doses, Starting on Mon08/14/24 at 1239, Until Discontinued, Pain Moderate (4-6), Phase I - Initial therapy for moderate pain., PACU only HYDROmorphone (DILAUDID) injection 0.5 mg 0.5 mg, IntraVENous, EVERY 5 MIN PRN, 4 doses, Starting on Mon08/14/24 at 1239, Until Discontinued, Pain Severe (7-10), Phase I - Initial therapy for severe pain., PACU only meperidine (DEMEROL) injection 12.5 mg 12.5 mg, IntraVENous, EVERY 5 MIN PRN, 4 doses, Starting on Mon08/14/24 at 1239, Until Discontinued, Shivering, , May give every 5 minutes to max of 50mg., PACU only metoclopramide (REGLAN) injection 10 mg 10 mg, IntraVENous, ONCE PRN, 1 dose, Starting on Mon08/14/24 at 1239, Until Sayda 08/15/24 at 1239, Nausea, Secondary antiemetic therapy., PACU only naloxone 0.4 mg in 10 mL sodium chloride syringe IntraVENous, PRN, Opioid Reversal, Starting on Mon08/14/24 at 1239, PRN if respiratory rate is less than 6/min and patient is difficult to arouse then notify physician STAT. Mix 9 mL of sodium chloride 0.9% with 0.4 mg (1 mL) of naloxone (NARCAN) in 10 mL syringe. (Note: dilution is 0.04 mg/mL) Give 0.08 mg (2 mL of special dilution), slow IV push, repeat up to 0.4 mg (10 mL) or until patient is responsive to physical stimulation and respiratory rate is equal to or greater than 6 breaths/min. Continue to observe, if no response within 3 minutes of administration of 0.4 mg (10 mL) total, repeat dose (0.4 mg as administered previously). Concentration 0.04 mg/mL, PACU only sodium chloride flush 0.9 % injection 5-40 mL 5-40 mL, IntraVENous, PRN, Starting on Mon08/14/24 at 1239, Until Discontinued, Line Care, After every IV line use, For Line Patency: Peripheral IV = 5 mL; Midline or Central Line = 10 mL/lumen. If following IV push medication, administer flush at same rate as the IV push. Flush volume is determined by type of infusion therapy being given. For non-viscous solutions use: Peripheral IV = 5 mL Midline or Central Line = 10 mL/lumen For viscous solutions (i.e. blood components, parenteral nutrition, contrast media, or after obtaining blood sample) use: Peripheral IV = 10 mL Midline or Central Line = 20 mL/lumen, PACU only FOR RECORDS PERTAINING TO PATIENTS WHO ARE [...] BE BASED ON THE PRIMARY CLINICAL RECORDS. [employer] provides no warranty or guarantee of the accuracy or completeness of information in this document.
[2024-10-12 06:10] VITALS: BP 125/78; PULSE 68; TEMP 36.6; O2SAT 100; BMI 28.1
[2024-10-12] MEDS: TETRACAINE HCL 0.5% OP SOL 80 DROP/4 ML BOTTLE OP (06:23)
[2024-10-12] MEDS: FLUORESCEIN SODIUM 1 MG STRIP OP ×2 (06:23→07:24)
--- NOTE | 2024-10-12 07:22 | ED.GENADUL1 ---
HPI HPI - General Adult General Chief complaint: Eye Problems Stated complaint: EYE Time Seen by Provider: 10/12/24 07:07 Source: patient Mode of arrival: walk-in Limitations: no limitations History of Present Illness HPI narrative: 54-year-old male presents to the emergency department for left eye discomfort. He was mowing the grass yesterday and the believes that something hit his eye. He was not weed whacking. He had continued discomfort today so he came in. He had a tetanus shot a week ago. No drainage. Related Data Home Medications ?Medication ?Instructions ?Recorded ?Confirmed albuterol sulfate 90 mcg/actuation 2 puff inhalation Q6H PRN 07/14/24 10/12/24 aerosol inhaler shortness of breath or wheezing Creon 10/12/24 budesonide 160 mcg-glycopyr 9 2 inh inhalation BID 10/12/24 10/12/24 mcg-formot 4.8 mcg/actuation HFA inhaler (Breztri Aerosphere) Previous Rx's ?Medication ?Instructions ?Recorded prednisone 20 mg tablet 40 mg (2 x 20 mg) PO DAILY 5 days 07/14/24 #10 tabs sulfacetamide sodium 10 % eye drops 2 drp ophthalmic (eye) Q4H #15 mL 10/12/24 Allergies Allergy/AdvReac Type Severity Reaction Status Date / Time Penicillins AdvReac stomach Verified 10/12/24 06:15 upset Review of Systems ROS Narrative A ten point review of systems is negative except as noted above. PFSH PFSH Social History Little interest or pleasure in doing things: not at all Feeling down, depressed, or hopeless: not at all Exam Narrative Exam Narrative: Nurses note and vital signs reviewed and patient is not hypoxic. General: The patient appears well and in no apparent distress. Patient is resting comfortably on cart. Skin: Warm, dry, no pallor noted. There is no rash noted. Head: Normocephalic, atraumatic Eye: Right conjunctiva appears normal. The left is injected. Lid eversion shows no foreign body. Examination of the cornea even with magnification does not show any foreign body. Fluorescein staining and Cisneros lamp examination shows a small corneal abrasion at the medial aspect of where the pupil is. Globe is intact and no foreign body is noted. Ears, Nose, Mouth, and Throat: oral mucosa is moist. Nares patent. Cardiovascular: Regular Rate and Rhythm Respiratory: Patient is in no distress, no accessory muscle use Back: non-tender GI: Soft and nontender Musculoskeletal: The patient has no evidence of calf tenderness, no pitting edema, symmetrical pulses noted bilaterally Neurological: Awake and alert Psychiatric: Cooperative Constitutional Vital Signs, click to edit/add: Last Vital Signs Temp 97.9 F 10/12/24 06:10 Pulse 68 10/12/24 06:10 Resp 16 10/12/24 06:10 BP 125/78 10/12/24 06:10 Pulse Ox 100 10/12/24 06:10 O2 Del Method Room Air 10/12/24 06:10 Course Vital Signs Vital signs: Vital Signs Temperature 97.9 F 10/12/24 06:10 Pulse Rate 68 10/12/24 06:10 Respiratory Rate 16 10/12/24 06:10 Blood Pressure 125/78 10/12/24 06:10 Pulse Oximetry 100 10/12/24 06:10 Oxygen Delivery Method Room Air 10/12/24 06:10 Temperature 97.9 F 10/12/24 06:10 Pulse Rate 68 10/12/24 06:10 Respiratory Rate 16 10/12/24 06:10 Blood Pressure 125/78 10/12/24 06:10 Pulse Oximetry 100 10/12/24 06:10 Oxygen Delivery Method Room Air 10/12/24 06:10 Medical Decision Making MDM Narrative Medical decision making narrative: I do not see a corneal foreign body even with magnification. There is however an abrasion and he is placed on Bleph-10 eyedrops. Tetanus is already up-to-date, he had one a week ago and he is referred to ophthalmology for follow-up if there is no improvement. Treatment diagnosis and follow-up were discussed with the patient Differential Diagnosis Differential Diagnosis: Corneal abrasion, corneal foreign body Discharge Plan Discharge Chief Complaint: Eye Problems Clinical Impression: Corneal abrasion, left Patient Disposition: Home, Self-Care Time of Disposition Decision: 07:20 Condition: Good Mode of Transportation: Private Vehicle Prescriptions / Home Meds: New sulfacetamide sodium 10 % drops 2 drp ophthalmic (eye) Q4H Qty: 15 0RF No Action Breztri Aerosphere 160-9-4.8 mcg/actuation HFA aerosol inhaler 2 inh INHALATION BID Creon Rx Instructions: 2 with every meal 1 with every snack albuterol sulfate 90 mcg/actuation HFA aerosol inhaler 2 puff INHALATION Q6H PRN (Reason: shortness of breath or wheezing) prednisone 20 mg tablet 40 mg PO DAILY 5 Days Qty: 10 0RF Print Language: Montenegrin Instructions: Corneal Abrasion (ED) Referrals: [facility] [Primary Care Provider, Unknown] - 1 week [facility] [Physician, Opthalmology] - 10/14/24 Referral Note: If no improvement
== END 2024-10-12 07:28 | disposition home or self-care (01) ==
PROVIDERS: Emergency Provider Emergency Medicine; Family Provider Family Medicine
DX: S05.02XA Injury of conjunctiva and corneal abrasion without foreign body, left eye, initial encounter (principal); X58.XXXA Exposure to other specified factors, initial encounter
CPT/HCPCS: 99284